=== PATIENT | female | born 1940 | race Caucasian/White ===

== ENCOUNTER 2021-04-24 23:00 | Emergency (ER) | payer BC, MEDICARE ==
[2021-04-24 23:22] VITALS: RESP 16
[2021-04-24] MEDS ORDERED: SODIUM CHLORIDE 0.9% 1,000 ML IV STA (23:27)
--- NOTE | 2021-04-25 00:17 | ED ---
Altered Mental Status HPI - General Chief Complaint: Altered Mental Status Stated Complaint: fall, head injury, dizziness Time Seen by Provider: 04/24/21 23:27 Source: family Mode of arrival: wheelchair Limitations: no limitations - Related Data Home Medications Medication Instructions Recorded Confirmed ALPRAZolam [Xanax] 1 mg PO HS 11/17/13 11/17/13 Gabapentin [Neurontin] 400 mg PO BID 11/17/13 11/17/13 HYDROcodone/APAP 10-325MG [[place] 1 each PO Q6H PRN 11/17/13 11/17/13 10] Levothyroxine Sodium [Synthroid] 125 mcg PO DAILY 11/17/13 11/17/13 Naproxen 500 mg PO Q12HR 11/17/13 11/17/13 Allergies Allergy/AdvReac Type Severity Reaction Status Date / Time No Known Allergies Allergy Verified 04/24/21 23:22 Review of Systems ROS Statement: Those systems with pertinent positive or pertinent negative responses have been documented in the HPI. ROS Other: All systems not noted in ROS Statement are negative. Past Medical History Additional Past Medical History / Comment(s): arthritis History of Any Multi-Drug Resistant Organisms: None Reported Past Surgical History: Back Surgery Past Psychological History: No Psychological Hx Reported Past Alcohol Use History: None Reported Past Drug Use History: None Reported General Exam Limitations: no limitations Course Vital Signs 04/24/21 23:16 Temperature 98.8 F Pulse Rate 75 Respiratory 16 Rate Blood Pressure 127/79 O2 Sat by Pulse 96 Oximetry Medical Decision Making - Lab Data Result diagrams: 04/24/21 23:59 04/24/21 23:59 Lab Results 04/24/21 04/24/21 04/24/21 Range/Units 23:59 23:59 23:59 WBC 9.7 (3.8-10.6) k/uL RBC 4.14 (3.80-5.40) m/uL Hgb 13.8 (11.4-16.0) gm/dL Hct 40.4 (34.0-46.0) % MCV 97.6 (80.0-100.0) fL MCH 33.2 (25.0-35.0) pg MCHC 34.0 (31.0-37.0) g/dL RDW 13.9 (11.5-15.5) % Plt Count 210 (150-450) k/uL MPV 9.1 Neutrophils % 77 % Lymphocytes % 15 % Monocytes % 6 % Eosinophils % 2 % Basophils % 1 % Neutrophils # 7.4 (1.3-7.7) k/uL Lymphocytes # 1.4 (1.0-4.8) k/uL Monocytes # 0.5 (0-1.0) k/uL Eosinophils # 0.2 (0-0.7) k/uL Basophils # 0.1 (0-0.2) k/uL PT 11.2 (9.0-12.0) sec INR 1.0 (<1.2) APTT 24.1 (22.0-30.0) sec Sodium 139 (137-145) mmol/L Potassium 4.2 (3.5-5.1) mmol/L Chloride 109 H (98-107) mmol/L Carbon Dioxide 21 L (22-30) mmol/L Anion Gap 9 mmol/L BUN 24 H (7-17) mg/dL Creatinine 1.31 H (0.52-1.04) mg/dL Est GFR (CKD-EPI)AfAm 45 (>60 ml/min/1.73 sqM) Est GFR (CKD-EPI)NonAf 39 (>60 ml/min/1.73 sqM) Glucose 109 H (74-99) mg/dL Calcium 9.6 (8.4-10.2) mg/dL Total Bilirubin 1.1 (0.2-1.3) mg/dL AST 27 (14-36) U/L ALT 13 (4-34) U/L Alkaline Phosphatase 76 (38-126) U/L Troponin I (0.000-0.034) ng/mL Total Protein 7.9 (6.3-8.2) g/dL Albumin 4.4 (3.5-5.0) g/dL Urine Color Urine Appearance (Clear) Urine pH (5.0-8.0) Ur Specific [place] (1.001-1.035) Urine Protein (Negative) Urine Glucose (UA) (Negative) Urine Ketones (Negative) Urine Blood (Negative) Urine Nitrite (Negative) Urine Bilirubin (Negative) Urine Urobilinogen (<2.0) mg/dL Ur Leukocyte Esterase (Negative) Urine RBC (0-5) /hpf Urine WBC (0-5) /hpf Ur Squamous Epith Cells (0-4) /hpf Urine Bacteria (None) /hpf Hyaline Casts (0-2) /lpf Urine Mucus (None) /hpf Urine Opiates Screen (NotDetected) Ur Oxycodone Screen (NotDetected) Urine Methadone Screen (NotDetected) Ur Propoxyphene Screen (NotDetected) Ur Barbiturates Screen (NotDetected) U Tricyclic Antidepress (NotDetected) Ur Phencyclidine Scrn (NotDetected) Ur Amphetamines Screen (NotDetected) U Methamphetamines Scrn (NotDetected) U Benzodiazepines Scrn (NotDetected) Urine Cocaine Screen (NotDetected) U Marijuana (THC) Screen (NotDetected) Serum Alcohol <10 mg/dL 04/24/21 04/25/21 Range/Units 23:59 02:14 WBC (3.8-10.6) k/uL RBC (3.80-5.40) m/uL Hgb (11.4-16.0) gm/dL Hct (34.0-46.0) % MCV (80.0-100.0) fL MCH (25.0-35.0) pg MCHC (31.0-37.0) g/dL RDW (11.5-15.5) % Plt Count (150-450) k/uL MPV Neutrophils % % Lymphocytes % % Monocytes % % Eosinophils % % Basophils % % Neutrophils # (1.3-7.7) k/uL Lymphocytes # (1.0-4.8) k/uL Monocytes # (0-1.0) k/uL Eosinophils # (0-0.7) k/uL Basophils # (0-0.2) k/uL PT (9.0-12.0) sec INR (<1.2) APTT (22.0-30.0) sec Sodium (137-145) mmol/L Potassium (3.5-5.1) mmol/L Chloride (98-107) mmol/L Carbon Dioxide (22-30) mmol/L Anion Gap mmol/L BUN (7-17) mg/dL Creatinine (0.52-1.04) mg/dL Est GFR (CKD-EPI)AfAm (>60 ml/min/1.73 sqM) Est GFR (CKD-EPI)NonAf (>60 ml/min/1.73 sqM) Glucose (74-99) mg/dL Calcium (8.4-10.2) mg/dL Total Bilirubin (0.2-1.3) mg/dL AST (14-36) U/L ALT (4-34) U/L Alkaline Phosphatase (38-126) U/L Troponin I <0.012 (0.000-0.034) ng/mL Total Protein (6.3-8.2) g/dL Albumin (3.5-5.0) g/dL Urine Color Yellow Urine Appearance Clear (Clear) Urine pH 5.5 (5.0-8.0) Ur Specific [place] 1.023 (1.001-1.035) Urine Protein Trace H (Negative) Urine Glucose (UA) Negative (Negative) Urine Ketones 1+ H (Negative) Urine Blood Negative (Negative) Urine Nitrite Negative (Negative) Urine Bilirubin Negative (Negative) Urine Urobilinogen <2.0 (<2.0) mg/dL Ur Leukocyte Esterase Large H (Negative) Urine RBC 2 (0-5) /hpf Urine WBC 90 H (0-5) /hpf Ur Squamous Epith Cells 1 (0-4) /hpf Urine Bacteria Rare H (None) /hpf Hyaline Casts 3 H (0-2) /lpf Urine Mucus Rare H (None) /hpf Urine Opiates Screen Not Detected (NotDetected) Ur Oxycodone Screen Not Detected (NotDetected) Urine Methadone Screen Not Detected (NotDetected) Ur Propoxyphene Screen Not Detected (NotDetected) Ur Barbiturates Screen Not Detected (NotDetected) U Tricyclic Antidepress Not Detected (NotDetected) Ur Phencyclidine Scrn Not Detected (NotDetected) Ur Amphetamines Screen Not Detected (NotDetected) U Methamphetamines Scrn Not Detected (NotDetected) U Benzodiazepines Scrn Not Detected (NotDetected) Urine Cocaine Screen Not Detected (NotDetected) U Marijuana (THC) Screen Not Detected (NotDetected) Serum Alcohol mg/dL - EKG Data -: EKG Interpreted by Me (EKG is sinus rhythm 88 ID 148 QRS 82 QTC 332) Disposition Clinical Impression: Altered mental status, UTI (urinary tract infection) Disposition: HOME SELF-CARE Condition: Good Instructions (If sedation given, give patient instructions): Altered Mental Status (ED), Urinary Tract Infection in Women (ED) Is patient prescribed a controlled substance at d/c from ED?: No Referrals: Leonora Byrne MD [Primary Care Provider] - 1-2 days
[2021-04-25 00:20] LABS: Basophils # (A) 0.1 k/uL (0-0.2); Basophils % (A) 1 %; Eosinophils # (A) 0.2 k/uL (0-0.7); Eosinophils % (A) 2 %; HCT 40.4 % (34.0-46.0); HGB 13.8 gm/dL (11.4-16.0); Lymphocytes # (A) 1.4 k/uL (1.0-4.8); Lymphocytes % (A) 15 %; MCH 33.2 pg (25.0-35.0); MCV 97.6 fL (80.0-100.0); Mean Platelet Volume 9.1; Monocytes # (A) 0.5 k/uL (0-1.0); Monocytes % (A) 6 %; Neutrophils # (A) 7.4 k/uL (1.3-7.7); Neutrophils % (A) 77 %; Platelet Count 210 k/uL (150-450); RBC 4.14 m/uL (3.80-5.40); RDW 13.9 % (11.5-15.5); WBC 9.7 k/uL (3.8-10.6)
[2021-04-25 00:31] LABS: Partial Thromboplastin Time 24.1 sec (22.0-30.0); Prothrombin Time 11.2 sec (9.0-12.0)
[2021-04-25 00:42] LABS: ALT 13 U/L (4-34); AST 27 U/L (14-36); African American GFR (CKD) 45 (>60 ml/min/1.73 sqM); Albumin 4.4 g/dL (3.5-5.0); Alcohol <10 mg/dL; Alkaline Phosphatase 76 U/L (38-126); Anion Gap 9 mmol/L; Blood Urea Nitrogen 24 mg/dL (7-17); Calcium 9.6 mg/dL (8.4-10.2); Carbon Dioxide 21 mmol/L (22-30); Chloride 109 mmol/L (98-107); Glucose 109 mg/dL (74-99); Non-African American GFR(CKD) 39 (>60 ml/min/1.73 sqM); Potassium 4.2 mmol/L (3.5-5.1); Sodium 139 mmol/L (137-145); Total Bilirubin 1.1 mg/dL (0.2-1.3); Total Protein 7.9 g/dL (6.3-8.2)
--- NOTE | 2021-04-25 00:47 | CT ---
EXAMINATION TYPE: CT brain desirae wo con DATE OF EXAM: 04/24/2021 COMPARISON: CT brain 11/17/2013 HISTORY: fall CT DLP: 1076.4 mGycm Automated exposure control for dose reduction was used. There is cerebral cortical atrophy. There is no mass effect nor midline shift. There is some hypodens ity in the periventricular white matter. There is enlargement of the ventricles. Calvarium is intact. Skull base is intact. There is normal aeration of the mastoid sinuses. Cervical vertebra have normal alignment. There is mild narrowing of C5-6 and C6-7 disc spaces with sp urring. Facet joints are intact. No compression fracture. IMPRESSION: Spondylotic changes in the lower cervical spine. No fracture. Cerebral atrophy and hydrocephalus. Chronic small vessel ischemia. No acute intracranial abnormality. There is progression of the abnormalities in the brain compared to the old exam.
--- NOTE | 2021-04-25 01:16 | CT ---
EXAMINATION TYPE: CT facial bones wo con DATE OF EXAM: 04/24/2021 COMPARISON: None HISTORY: fall CT DLP: 1076.4 mGycm Automated exposure control for dose reduction was used. Images obtained from the bottom of the mandible to the top of the frontal sinuses without contrast. The mandibular ring is intact. Temporomandibular joints are intact. Zygomatic arches appear normal. M axilla is intact. Nasal bone appears deviated to the left side which is probably not acute. No acute fracture seen of the nasal bone. Orbital margins are intact. There is no retro-orbital mass. There is no evidence of orbital blowout fracture. There is fairly normal aeration of the paranasal sinuses. There is fairly normal aeration of the mast oid sinuses. IMPRESSION: Negative CT scan of the facial bones. No fracture seen. Mild nasal deformity consistent with an old i njury.
[2021-04-25 02:21] LABS: Appearance,Urine Clear (Clear); Bacteria,Urine Rare /hpf; Bilirubin,Urine Negative (Negative); Blood,Urine Negative (Negative); Color,Urine Yellow; Glucose,Urine (UA) Negative (Negative); Hyaline Casts,Urine 3 /lpf (0-2); Ketones,Urine 1+ (Negative); Leukocyte Esterase,Urine Large (Negative); Mucus,Urine Rare /hpf; Nitrite,Urine Negative (Negative); PH, Urine 5.5 (5.0-8.0); Protein,Urine Trace (Negative); RBC,Urine 2 /hpf (0-5); Specific Gravity,Urine 1.023 (1.001-1.035); Squamous Epithelial Cell,Urine 1 /hpf (0-4); Urobilinogen,Urine <2.0 mg/dL (<2.0); WBC,Urine 90 /hpf (0-5)
[2021-04-25 02:28] LABS: Amphetamine Screen,Urine Not Detected (NotDetected); Barbiturate Screen,Urine Not Detected (NotDetected); Benzodiazepines Screen,Urine Not Detected (NotDetected); Cocaine Screen,Urine Not Detected (NotDetected); Methadone Screen, Urine Not Detected (NotDetected); Opiate Screen,Urine Not Detected (NotDetected); Oxycodone Screen, Urine Not Detected (NotDetected); Phencyclidine Screen,Urine Not Detected (NotDetected); Tricyclic Antidepressant,Urine Not Detected (NotDetected); Urn Cannabinoid Scrn Not Detected (NotDetected)
[2021-04-25] MEDS ORDERED: CEPHALEXIN 500 MG CAP PO STA (03:18)
[2021-04-25] MEDS ORDERED: cefTRIAXone IN SWFI 1,000 MG/10 ML SYRINGE IVP STA (03:18)
[2021-04-25] MEDS ORDERED: CEPHALEXIN 500MG STARTER PACK 4 CAP BTL PO STA (03:18)
[2021-04-25 04:27] VITALS: BP 131/78; PULSE 78; TEMP 97.8
== END 2021-04-25 04:24 | disposition home or self-care (01) ==
LOC: EC 23:00
DX: R41.82 Altered mental status, unspecified (principal); N39.0 Urinary tract infection, site not specified
CPT/HCPCS: 99285; 96374; 96361 ×3; 36415; 93005; 80053; 84484; 85025; 85610; 85730; 81001; 80306; 87086; 72125; 70486; 70450; G0480; J0696; 80320

== ENCOUNTER 2021-07-24 17:25 | Inpatient (IN) | payer MEDICARE ==
[2021-07-24] MEDS ORDERED: LABETALOL 5 MG/ML VIAL MDV IVP STA (17:48)
[2021-07-24] MEDS ORDERED: HYDROmorphone 0.5 MG/0.5 ML SYRINGE IVP STA (18:01)
--- NOTE | 2021-07-24 19:20 | XR ---
EXAMINATION TYPE: XR chest 1V DATE OF EXAM: 07/24/2021 6:42 PM COMPARISON: None TECHNIQUE: XR chest 1V Frontal view of the chest. CLINICAL INDICATION:Female, 80 years old with history of PAIN; FINDINGS: Lungs/Pleura: There is no evidence of pleural effusion, focal consolidation, or pneumothorax. Pulmonary vascularity: Unremarkable. Heart/mediastinum: Cardiomediastinal silhouette is unremarkable. Musculoskeletal: No acute osseous pathology. IMPRESSION: No acute cardiopulmonary disease/process.
--- NOTE | 2021-07-24 19:23 | XR ---
EXAMINATION TYPE: XR Hip RT and AP Pelvis DATE OF EXAM: 07/24/2021 6:41 PM INDICATION: Patient age:Female; 80 years old; Reason for study: Fall; COMPARISON: None. TECHNIQUE: The right hip was examined in the frontal and lateral projections and a AP pelvis. FINDINGS: Comminuted intertrochanteric fracture of the right proximal femur. There is osteophyte form ation involving the acetabulum' s. No evidence of intra-articular extension. Moderate multilevel dege neration changes of vertebroplasty changes are present. IMPRESSION: Right proximal femur intertrochanteric comminuted fracture.
--- NOTE | 2021-07-24 19:26 | ED ---
General Adult HPI - General Chief complaint: Fall Stated complaint: Hip Pain Time Seen by Provider: 07/24/21 18:00 Source: patient, EMS, RN notes reviewed, old records reviewed Mode of arrival: EMS Limitations: no limitations - History of Present Illness Initial comments: This a 80-year-old female who presents emergency Department after she had a fall. Patient complains of right hip pain. Patient states she's unable to stand on that leg. Patient states movement of the leg in any direction seems to cause increased pain. Patient denies hitting her head and neck. Patient denies chest pain or back pain. Patient has any abdominal pain. Patient denies any other problems at this time. - Related Data Home Medications Medication Instructions Recorded Confirmed ALPRAZolam [Xanax] 1 mg PO HS 11/17/13 11/17/13 Gabapentin [Neurontin] 400 mg PO BID 11/17/13 11/17/13 HYDROcodone/APAP 10-325MG [[place] 1 each PO Q6H PRN 11/17/13 11/17/13 10] Levothyroxine Sodium [Synthroid] 125 mcg PO DAILY 11/17/13 11/17/13 Naproxen 500 mg PO Q12HR 11/17/13 11/17/13 Previous Rx's Medication Instructions Recorded Cephalexin [Keflex] 500 mg PO Q6HR #28 cap 04/25/21 Allergies Allergy/AdvReac Type Severity Reaction Status Date / Time No Known Allergies Allergy Verified 07/24/21 17:58 Review of Systems ROS Statement: Those systems with pertinent positive or pertinent negative responses have been documented in the HPI. ROS Other: All systems not noted in ROS Statement are negative. Past Medical History Additional Past Medical History / Comment(s): arthritis History of Any Multi-Drug Resistant Organisms: None Reported Past Surgical History: Back Surgery Past Psychological History: No Psychological Hx Reported Smoking Status: Never smoker Past Alcohol Use History: Occasional Past Drug Use History: None Reported General Exam - General Exam Comments Initial Comments: GENERAL: Patient is well-developed and well-nourished. Patient is nontoxic and well- hydrated and is in mild distress. ENT: Neck is soft and supple. No significant lymphadenopathy is noted. Oropharynx is clear. Moist mucous membranes. Neck has full range of motion without eliciting any pain. EYES: The sclera were anicteric and conjunctiva were pink and moist. Extraocular movements were intact and pupils were equal round and reactive to light. Eyelids were unremarkable. PULMONARY: Unlabored respirations. Good breath sounds bilaterally. No audible rales rhonchi or wheezing was noted. CARDIOVASCULAR: There is a regular rate and rhythm without any murmurs gallops or rubs. ABDOMEN: Soft and nontender with normal bowel sounds. SKIN: Skin is clear with no lesions or rashes and otherwise unremarkable. NEUROLOGIC: Patient is alert and oriented x3. Cranial nerves II through XII are grossly intact. Motor and sensory are also intact. Normal speech, volume and content. Symmetrical smile. MUSCULOSKELETAL: Patient right hip as tender to palpation and any movement. LYMPHATICS: No significant lymphadenopathy is noted PSYCHIATRIC: Normal psychiatric evaluation. Limitations: no limitations Course Vital Signs 07/24/21 17:50 Temperature 98 F Pulse Rate 64 Respiratory 18 Rate Blood Pressure 117/65 O2 Sat by Pulse 97 Oximetry Medical Decision Making - Medical Decision Making EKG shows sinus bradycardia 56 bpm MS interval is on a 37 QRSs 89 QT interval 44 QTC is 397. Patient's EKG shows no ST segment elevation or depression X-ray shows a right intertrochanteric hip fracture. I spoke with [facility] and he agreed to admit the patient with the patient wrote admitting orders Disposition Clinical Impression: Intertrochanteric fracture of right hip Disposition: ADMITTED IP TO THIS HOSP Referrals: Kyree Barreto MD [STAFF PHYSICIAN] - 1-2 days Time of Disposition: 19:39
[2021-07-24] MEDS ORDERED: SODIUM CHLORIDE 0.9% 1,000 ML IV ONE (19:39)
--- NOTE | 2021-07-24 21:11 | P.HPOR ---
History of Present Illness H&P Date: 07/24/21 Chief Complaint: FAll, Right hip fracture 80 yo female presented after ffs at home with right hip pain. She states she tripped over her new shoes and fell directly onto her right hip with immediate pain and inability to ambulate after. EMS brought her in. Denies BHT. No LOC. States no other injury. Has some knee pain on the same side that is chronic. Denies numbness/tingling. States no other issues at this time. She has a hx of hypothyroid. Review of Systems 14 points review of systems completed and as stated in HPI, all other systems reviewed are negative. Constitutional: Reports as per HPI Past Medical History Additional Past Medical History / Comment(s): arthritis History of Any Multi-Drug Resistant Organisms: None Reported Past Surgical History: Back Surgery Past Psychological History: No Psychological Hx Reported Smoking Status: Never smoker Past Alcohol Use History: Occasional Past Drug Use History: None Reported Medications and Allergies Home Medications Medication Instructions Recorded Confirmed Type Naproxen 500 mg PO BID PRN 11/17/13 07/24/21 History Baclofen 10 mg PO BID PRN 07/24/21 07/24/21 History Gabapentin [Neurontin] See Taper PO DIRECTED 07/24/21 07/24/21 History HYDROcodone/APAP 5-325MG [[place] 1 tab PO HS 07/24/21 07/24/21 History 5-325] Ibuprofen [Motrin] 600 mg PO BID PRN 07/24/21 07/24/21 History Levothyroxine Sodium [Synthroid] 150 mcg PO DAILY 07/24/21 07/24/21 History Metoprolol Tartrate [Lopressor] 50 mg PO DAILY 07/24/21 07/24/21 History Allergies Allergy/AdvReac Type Severity Reaction Status Date / Time No Known Allergies Allergy Verified 07/24/21 20:13 Physical Examination Osteopathic Statement: *. No significant issues noted on an osteopathic structural exam other than those noted in the History and Physical/Consult. AOX3 NAD VSS, afeb Non septic appearing TTP of the right hip region over GT and groin. No other TTP of any major joints FROM of all major joints w/o pain except pain with log roll of right hip 5/5 motor all except HF and KE Right due to fracture. All others full. SILT L2-S1 and C5-T1 2/4 DP/PT Rad/U pulses Compartments soft and compressive No skin lesions or breaks CNII-XII grossly intact No pathological reflexes DTR 2/4 Results Imaging of right hip shows minimally displaced 3 part right IT fracture with flexed and valgus angulation. No other fractures noted. FA joints congruent. No pelvic fractures noted. Full length femur films pending Knee films pending. Assessment and Plan Assessment: 80 yo female s/p ffs with right IT fracture 3 part displaced, angulated Hx hypothyroid Plan: Orthopedic Surgery Risk Review Monica Sierra is a 80 yo female presenting for evaluation of sudden onset Right hip pain, inability to ambulate after fall from standing. It was my pleasure to have seen and examined Monica Sierra. In our visit today we have had a chance to go over subjective complaints, physical examination findings and treatments including the natural course history without intervention and various interventional options. Her imaging demonstrates Right hip IT fracture 3 part angulated, displaced. On physical exam, Monica Sierra demonstrates pain with motion of RLE, which is NV intact at this time. I have explained to the patient that this fracture needs stabilization. Based on the patients imaging, physical exam, and the rapid progression and disabling nature of her symptoms, at this time I recommend surgery in the form or a: Right hip intramedullary nail fixation I discussed the risk and benefits of this procedure at length with Monica Sierra and her family at bedside. Questions were invited and answered, and the patient wishes to proceed as outlined below. Currently, I am recommendin. RIGHT hip intramedullary nail fixation 2. Review of surgical risks and benefits as well as an educational packet on the proposed surgical procedure. Risks: All surgical procedures come with inherent risks, including those related to positioning, anesthesia, intraoperative findings, and postoperative complications. It is important to understand that surgery does not come with any guarantee of a successful outcome as complications and adverse events are always possible. The patient was given a handout discussing the surgical procedure and risks associated with the intervention, both of which were discussed with the patient. These risks include but are not limited to the following: - Experiencing same, different or even worse symptoms compared to before surgery. - Requiring further surgery or other forms of treatment presently or at some time in the future . - On an extreme but fortunately relatively rare basis severe complication such as blindness, stroke, heart attack, temporary and/or permanent nerve injury, paralysis, coma, or may occur, sometimes without known explanation. - Surgical complications may include but are not limited to risk of infection, fluid accumulation in the surgical dissection site, including a seroma or hematoma, that requires additional surgery, wound drainage, bleeding, new numbness or weakness, vision changes/loss, spinal fluid leakage, non-healing and/or infected incision, headaches, difficulty or inability to swallow, hoarseness, hemopneumothorax, pneumothorax, injury to nerves, spinal cord, blood vessels, lymphatics or other vital organs (i.e., bowel injury, injury to the great vessels); heterotopic bone formation; complications related to the hardware such as screws, rods, including misplaced hardware, device failure, hardware fracture/breakage, or hardware loosening; retained surgical instrumentations or devices and the need for further surgery. - Medical risks of the planned surgery include but are not limited to generalized Infections to the whole body or local areas outside of the surgical site (sepsis), heart attack, bleeding, anaphylaxis, meningitis, seizure, epilepsy, hearing loss, burn lombardo, laceration of the head or other areas of the body, bruising, hypersensitivity of the skin, bladder over distension; allergic reaction; shoulder injury related to positioning; fat, blood and air clots to other areas of the body like heart, lungs, brain; failure of internal organs such as lungs, kidneys, liver and excessive bleeding. If blood transfusions are necessary, note that transfusions may cause intolerance reactions such as anaphy laxis or other complex reactions. Despite best efforts, the results of surgery might not heal in terms of bone, soft tissues such as skin, fascia, ligaments, and joints. [facility] has multiple operating rooms with single and overlapping rooms running daily. They currently function under the required guidelines as produced by the Senate Finance Committee with regards to the overlapping rooms and will continue to comply with changes to this policy as they occur. The requirements include and are complied with as follows: (1) the critical portions of the overlapping rooms will not occur at the same time, (2) the attending physician will be physically present during the critical portions of the procedure and immediately available during the entire case, and (3) a back-up attending is designated should the primary attending not be immediately available. The patient has had a chance to review all the listed information, has been given print outs detailing this information, and has had all his/her questions answered to their satisfaction. It was my pleasure to have seen and examined Monica Sierra. In our visit today we have had a chance to go over my understanding of our patient's current condition, the natural course history without intervention and various interventional options. Questions were invited and answered, and the patient wishes to proceed as outlined above. I have seen and examined the patient for 25 minutes and we have spent more than 50% of the time in repeat and detailed counseling about the patient's condition, its natural course history with out and as much as can be predicted with surgery and re-review of various surgical treatment options. In conclusion, Monica Sierra and her family at bedside requested we proceed with the above suggested surgery and are willing to accept risks and limitations of the suggested surgery as nature of the disease process and our best attempts at treatment for the condition. Thank you again for allowing us to be part of your patient's care. Please don't hesitate to contact me if you have any further questions. Signed and authenticated by: L[facility] [place] [address] [address]
[2021-07-24] MEDS ORDERED: CYCLOBENZAPRINE 5 MG TAB PO PRN (21:12)
[2021-07-24] MEDS ORDERED: HYDROcodone/APAP 5-325MG 1 EACH TAB PO PRN (21:12)
[2021-07-24 22:02] LABS: Basophils # (A) 0.1 k/uL (0-0.2); Basophils % (A) 0 %; Eosinophils # (A) 0.1 k/uL (0-0.7); Eosinophils % (A) 1 %; HCT 37.6 % (34.0-46.0); HGB 11.8 gm/dL (11.4-16.0); Lymphocytes # (A) 1.2 k/uL (1.0-4.8); Lymphocytes % (A) 9 %; MCH 30.8 pg (25.0-35.0); MCHC 31.5 g/dL (31.0-37.0); MCV 97.7 fL (80.0-100.0); Mean Platelet Volume 8.9; Monocytes # (A) 0.5 k/uL (0-1.0); Monocytes % (A) 4 %; Neutrophils # (A) 11.8 k/uL (1.3-7.7); Neutrophils % (A) 86 %; Platelet Count 238 k/uL (150-450); RBC 3.85 m/uL (3.80-5.40); RDW 13.3 % (11.5-15.5); WBC 13.8 k/uL (3.8-10.6)
[2021-07-24 22:13] LABS: Calcium 9.2 mg/dL (8.4-10.2); Potassium 4.3 mmol/L (3.5-5.1); Total Bilirubin 0.5 mg/dL (0.2-1.3); Total Protein 7.1 g/dL (6.3-8.2)
[2021-07-24] MEDS: HYDROmorphone 0.5 MG/0.5 ML SYRINGE IVP PRN (22:31)
[2021-07-25 05:34] LABS: Partial Thromboplastin Time 23.8 sec (22.0-30.0); Prothrombin Time 10.8 sec (9.0-12.0)
[2021-07-25] MEDS: LEVOTHYROXINE 75 MCG TAB PO SCH (09:51)
[2021-07-25] MEDS: HYDROmorphone 0.5 MG/0.5 ML SYRINGE IVP PRN ×3 (09:51→23:56)
--- NOTE | 2021-07-25 10:33 | P.CONS ---
History of Present Illness - Reason for Consult Preoperative clearance - History of Present Illness Pleasant 80-year-old female came in after a mechanical fall and found to have a right hip fracture and patient is undergoing intramedullary nailing. Patient in any history of condition or failure patient appears to have chronic kidney disease stage III with baseline creatinine of around 1.3 present creatinine is 1.44 patient does take metoprolol at home patient is hypotensive at this time patient will be hydrated patient was started on IV fluids. Patient will need a bolus of IV fluids before surgery EKG showed a sinus bradycardia because of the metoprolol bradycardia improved at this time and patient doesn't have any acute ST-T wave changes patient denied any chest pain at this time. REVIEW OF SYSTEMS: CONSTITUTIONAL: No fever, no malaise, no fatigue. HEENT: No recent visual problems or hearing problems. Denied any sore throat. CARDIOVASCULAR: No chest pain, orthopnea, PND, no palpitations, no syncope. PULMONARY: No shortness of breath, no cough, no hemoptysis. GASTROINTESTINAL: No diarrhea, no nausea, no vomiting, no abdominal pain. NEUROLOGICAL: No headaches, no weakness, no numbness. HEMATOLOGICAL: Denies any bleeding or petechiae. GENITOURINARY: Denies any burning micturition, frequency, or urgency. MUSCULOSKELETAL/RHEUMATOLOGICAL: Pain in the right hip ENDOCRINE: Denies any polyuria or polydipsia. The rest of the 14-point review of systems is negative. PHYSICAL EXAMINATION: GENERAL: The patient is alert and oriented x3, not in any acute distress. Well developed, well nourished. HEENT: Pupils are round and equally reacting to light. EOMI. No scleral icterus. No conjunctival pallor. Normocephalic, atraumatic. No pharyngeal erythema. No thyromegaly. CARDIOVASCULAR: S1 and S2 present. No murmurs, rubs, or gallops. PULMONARY: Chest is clear to auscultation, no wheezing or crackles. ABDOMEN: Soft, nontender, nondistended, normoactive bowel sounds. No palpable organomegaly. MUSCULOSKELETAL: Deferred to orthopedic surgery EXTREMITIES: No cyanosis, clubbing, or pedal edema. NEUROLOGICAL: Gross neurological examination did not reveal any focal deficits. SKIN: No rashes. Assessment and plan -Preoperative to clearance for right hip intramedullary nailing: Patient is low risk and go for surgery no further testing is necessary at this time -Hypertension patient is hypotensive patient will be started on normal saline at this time. Hold off on metoprolol -Peripheral neuropathy for which patient is an of which can be continued -Hypothyroidism resume levothyroxine - DVT prophylaxis: As per primary service Past Medical History Additional Past Medical History / Comment(s): arthritis History of Any Multi-Drug Resistant Organisms: None Reported Past Surgical History: Back Surgery Past Psychological History: No Psychological Hx Reported Smoking Status: Never smoker Past Alcohol Use History: Occasional Past Drug Use History: None Reported Medications and Allergies Home Medications Medication Instructions Recorded Confirmed Type Naproxen 500 mg PO BID PRN 11/17/13 07/24/21 History Baclofen 10 mg PO BID PRN 07/24/21 07/24/21 History Gabapentin [Neurontin] See Taper PO DIRECTED 07/24/21 07/24/21 History HYDROcodone/APAP 5-325MG [[place] 1 tab PO HS 07/24/21 07/24/21 History 5-325] Ibuprofen [Motrin] 600 mg PO BID PRN 07/24/21 07/24/21 History Levothyroxine Sodium [Synthroid] 150 mcg PO DAILY 07/24/21 07/24/21 History Metoprolol Tartrate [Lopressor] 50 mg PO DAILY 07/24/21 07/24/21 History Allergies Allergy/AdvReac Type Severity Reaction Status Date / Time No Known Allergies Allergy Verified 07/24/21 20:13 Physical Exam Vitals: Vital Signs Temp Pulse Pulse Resp BP BP Pulse Ox 07/25/21 07:25 97.5 F L 69 17 101/61 95 07/25/21 02:00 98.3 F 63 20 106/61 97 07/25/21 00:58 98.7 F 66 14 110/56 92 L 07/24/21 22:32 69 18 113/62 95 07/24/21 17:50 98 F 64 18 117/65 97 Intake and Output 07/24/21 07/25/21 07/25/21 22:59 06:59 14:59 Output Total 0 Balance 0 Output: Urine 0 Other: Voiding Method External Catheter Weight 74.843 kg 74.843 kg Results CBC & Chem 7: 07/24/21 21:50 07/24/21 21:57 Labs: Abnormal Lab Results - Last 24 Hours (Table) 07/24/21 07/24/21 Range/Units 21:50 21:57 WBC 13.8 H (3.8-10.6) k/uL Neutrophils # 11.8 H (1.3-7.7) k/uL Sodium 136 L (137-145) mmol/L BUN 29 H (7-17) mg/dL Creatinine 1.44 H (0.52-1.04) mg/dL Glucose 112 H (74-99) mg/dL
[2021-07-25] MEDS ORDERED: [UNRECOGNIZED DRUG - OTHER] IVPB ONE (12:00)
[2021-07-25] MEDS ORDERED: TRANEXAMIC ACID IVPB ONE (12:00)
[2021-07-25] MEDS ORDERED: SALINE IVPB ONE (12:00)
[2021-07-25] MEDS ORDERED: TRANEXAMIC ACID IN NACL,ISO-OS 1,000 MG in SALINE 1 100ML.BAG IVPB ONE (12:00)
[2021-07-25] MEDS: SODIUM CHLORIDE 0.9% 1,000 ML IV SCH ×2 (12:04→22:52)
[2021-07-25] MEDS ORDERED: SODIUM CHLORIDE 0.9% 100 ML with ceFAZolin 2 GM IV ONE ×2 (17:27)
[2021-07-25] MEDS ORDERED: LACTATED RINGERS 1,000 ML IV ONE ×2 (17:27→20:36)
[2021-07-25] MEDS ORDERED: KETAMINE 10 MG/ML 20 ML VIAL ONE (19:23)
[2021-07-25] MEDS ORDERED: MIDAZOLAM 2 MG/2 ML VIAL ONE (19:23)
[2021-07-25] MEDS ORDERED: PHENYLEPHRINE-0.9% NACL SYG 1,000 MCG/10 ML SYRINGE ONE (19:23)
[2021-07-25] MEDS ORDERED: TRANEXAMIC ACID IN NACL,ISO-OS 1,000 MG/100 ML BAG ONE (19:23)
--- NOTE | 2021-07-25 20:49 | P.PN ---
Progress Note - Text Progress Note Date: 07/25/21 Pt s/e in pre op area. She is ready and willing to proceed with procedure as outlined. Risks and benefits discussed again consent confirmed. Site marked. Anesthesia cleared.
[2021-07-25] MEDS ORDERED: ACETAMINOPHEN TAB 325 MG TAB PO PRN (20:56)
[2021-07-25] MEDS ORDERED: NALOXONE 0.4 MG/ML 1 ML VIAL IV PRN (20:56)
--- NOTE | 2021-07-25 21:00 | P.OP ---
Date of Procedure: 07/25/21 Preoperative Diagnosis: 1. Right hip IT fracture, 3 part displaced, closed 2. s/p ffs Postoperative Diagnosis: 1. Right hip IT fracture, 3 part displaced, closed 2. s/p ffs Procedure(s) Performed: 1. RIGHT hip intramedullary nail fixation 2. Interpretation of intraoperative flouroscopy <1 hr Implants: S&N Intertan 11.5mm x 130 deg x 180 mm nail 105 mm lag screw 100 mm compression screw 37.5 mm distal locking scew Anesthesia: MAC, spinal Surgeon: López P[employer] Publisher #1: Tj Craig (Was present and assisted in all aspects of the case) Estimated Blood Loss (ml): 200 IV fluids (ml): 1,250 Urine output (ml): 200 Pathology: none sent Condition: stable Disposition: PACU Indications for Procedure: 80 yo female presented after a ffs at home where she tripped over her shoes. She was seen in ED and found to have a right 3 part IT fracture. She was admitted and worked up in preparation of surgical intervention. We discussed risks and benefits again as outlined in the risk review. She was cleared by medicine for surgery and anesthesia. She was willing to assume risks of surgery and wiling to proceed as was her family. Description of Procedure: The patient was seen and examined in the preoperative area. All preoperative protocols were followed. Informed consent was obtained risks and benefits of the procedure were discussed at length. Risks including bleeding infection damage to the surrounding tissue and risk of reoperation were discussed with the patient. Risk of anesthesia up to and including was a discussed with the patient. These are outlined in the risk reviewed. They were willing to accept these risks and all of the risks of surgery. The patient was given a weight- based dose of antibiotics in the form of 2 g Ancef. The patient was seen and evaluated by the anesthesia team who deemed them fit for surgery. The site was marked, the patient was willing to proceed with the procedure. The patient was transferred to the operative suite by the Department of anesthesia. There were then drifted off to sleep by the department of anesthesia and spinal with sedation anesthesia was used. Once adequate anesthesia had been obtained the patient was carefully transferred to the operative bed. All bony prominences were padded accordingly. SCDs were placed on the nonoperative lower extremities. Arms were well padded. Patient was transferred to a Ida bed the post was placed in a boot was placed on her right lower extremity. Well leg was placed in a well leg dyer and well-padded and secured. She was then secured to the table with safety strap and tape. X-rays were taken of the hip as well as of the knee briefing was performed and performed a closed reduction maneuver with the table placing her in traction abduction internal rotation. AP and lateral confirmed good position and so we continued. Preoperative briefing was done with the operative team and everyone was ready for the procedure to start. The patients right lower extremity was then prepped and draped in the normal sterile fashion. Timeout was then performed and all parties in agreement with the procedure to be performed. Skin incision was made to simmers proximally to the greater trochanter in line with the femur through the fascia and blunt dissection taken down to the tip the greater trochanter the all was then used to localize a starting point just medial to the tibial greater trochanter and in line with femur as well as center center on the lateral. Fluoroscopic imaging confirmed this once is in good position always tapped into position and confirmed to be in good position on AP and lateral imaging. Ball-tipped guidewire was then passed through the awl into the bone and confirmed to be within bone on AP and lateral. We then removed all and passed an opening reamer under fluoroscopic guidance. We then passed sequential reamers of 9 mm 11 mm and 13 mm through the proximal portion of the f emur to allow for better fit of the nail. Once this was accomplished then selected the nail and placed over the ball-tipped guidewire and impacted into position as a donor AP lateral fluoroscopic imaging. Once is in good position we placed the jig for the lag screw incision was made over the lateral aspect of the leg through the tensor fascia and blunt dissection taken of the femur the jig was then secured to the lateral aspect femur and pinned was placed ensuring center center within the neck and the head and 10 mm of subchondral bone on AP and lateral fluoroscopic imaging. Once it was in good position we measured for a lag screw. We then proceeded to drill for a compression screw was done under AP fluoroscopic guidance. Once this was completed then placed a spatula and then drilled over the wire for the compression screw to the desired length. Leg screw was then placed over the wire under fluoroscopic guidance. Once in good position the compression screw was then placed and compression was performed under fluoroscopic guidance and we had good compression and good reduction. We then turned our attention distally to the distal locking screw static hole selected jig was placed through this skin incision made and blunt dissection taken out of the bone the guide was then placed and we drilled through this. The screw was measured and then placed through this distal locking hole and confirmed to be in good position on AP and lateral fluoroscopic imaging. Once this was confirmed we then removed the outrigger from the nail and took final imaging which confirmed good reduction of the fracture good placement of hardware. Then copiously irrigated the wounds normal sterile saline. 0 Vicryl was placed in the deep fascia and the tensor fascia 2-0 Vicryl placed in subcu e very tissue and jason placed in the skin the wound edges approximated very well. The wounds were then cleaned and dressed sterilely with Adaptic 4 x 4's ABDs and foam tape. The patient was then transferred back to their hospital bed. There were awakened by department of anesthesia having tolerated the procedure very well with no complications. The patient was then transported to the postoperative care unit in stable condition.
[2021-07-25] MEDS ORDERED: HYDROmorphone 0.5 MG/0.5 ML SYRINGE IVP ONE ×4 (21:10→21:20)
[2021-07-25] MEDS: SENNOSIDES-DOCUSATE SODIUM 1 EACH TAB PO SCH (22:52)
[2021-07-26 00:13] LABS: Basophils # (A) 0.1 k/uL (0-0.2); Basophils % (A) 1 %; Eosinophils % (A) 0 %; HGB 10.2 gm/dL (11.4-16.0); Lymphocytes # (A) 0.8 k/uL (1.0-4.8); Lymphocytes % (A) 9 %; MCH 30.5 pg (25.0-35.0); MCHC 30.9 g/dL (31.0-37.0); MCV 98.6 fL (80.0-100.0); Mean Platelet Volume 8.8; Monocytes # (A) 0.5 k/uL (0-1.0); Monocytes % (A) 5 %; Neutrophils # (A) 8.3 k/uL (1.3-7.7); Neutrophils % (A) 85 %; Platelet Count 181 k/uL (150-450); RBC 3.34 m/uL (3.80-5.40); RDW 13.5 % (11.5-15.5); WBC 9.8 k/uL (3.8-10.6)
[2021-07-26] MEDS: LEVOTHYROXINE 75 MCG TAB PO SCH (05:06)
[2021-07-26] MEDS: HYDROmorphone 0.5 MG/0.5 ML SYRINGE IVP PRN (05:07)
--- NOTE | 2021-07-26 09:40 | XR ---
Fluoroscopy HISTORY: Fracture right hip 77 seconds fluoroscopy time supplied to the referring clinician. 11 intraoperative C-arm images docu ment the procedure. See dictated report from orthopedic surgery.
[2021-07-26] MEDS: HYDROcodone/APAP 7.5-325MG 1 EACH TAB PO PRN ×2 (09:44→16:07)
[2021-07-26] MEDS: ENOXAPARIN 30 MG/0.3 ML SYRINGE SQ SCH (09:47)
[2021-07-26] MEDS: SODIUM CHLORIDE 0.9% 1,000 ML IV SCH (09:47)
[2021-07-26] MEDS ORDERED: METOPROLOL TARTRATE 12.5 MG TAB PO STA (10:03)
--- NOTE | 2021-07-26 10:16 | P.PN ---
Subjective Progress Note Date: 07/26/21 Principal diagnosis: Right hip fracture Patient seen and examined she is doing fairly well as morning she states some soreness in her right hip but she feels better and feels more stable. She is up and about. She is eating breakfast. States she feels a little nauseous from an esthesia but otherwise is doing okay. Denies fevers chills shortness of breath or chest pain at this time. Objective - Vital Signs Vital signs: Vital Signs Temp 98.5 F 07/26/21 08:46 Pulse 109 H 07/26/21 09:43 Resp 16 07/26/21 08:46 BP 112/65 07/26/21 09:32 Pulse Ox 91 L 07/26/21 09:43 FiO2 Intake & Output 07/25/21 07/26/21 07/26/21 18:59 06:59 18:59 Intake Total 2000 50 Output Total 650 700 Balance 1350 -650 Intake: IV 2000 50 Sodium Chloride 0.9% 1, 900 000 ml @ 75 mls/hr IV . [id number] ONE Rx#:[id number] Output: Urine 650 500 Straight 650 Estimated Blood Loss 200 Other: Voiding Method External Catheter External Catheter Indwelling Catheter - Exam -Alert and oriented no acute distress -Minimal pain with logroll right hip -5/5 dorsiflexion plantar flexion EHL FHL -Sensation intact L2 to S1 -Palpable dorsalis pedis posterior tibial pulses -Compartments soft and compressible -Dressings clean and dry incisions clean and dry minimal bruising - Labs CBC & Chem 7: 07/25/21 23:34 07/24/21 21:57 Labs: Abnormal Lab Results - Last 24 Hours (Table) 07/25/21 Range/Units 23:34 RBC 3.34 L (3.80-5.40) m/uL Hgb 10.2 L (11.4-16.0) gm/dL Hct 33.0 L (34.0-46.0) % MCHC 30.9 L (31.0-37.0) g/dL Neutrophils # 8.3 H (1.3-7.7) k/uL Lymphocytes # 0.8 L (1.0-4.8) k/uL Assessment and Plan Assessment: Postop day 1 right hip intramedullary nail fixation 80 yo female s/p ffs with right IT fracture 3 part displaced, angulated Hx hypothyroid Plan: -Appreciate lifestyle consultant and team management. -Activity: Ambulate QID, OOB all meals, up and about, limit lifting bending twisting to less than 5 lbs. Use walker or cane if needed for stability. -Daily PT/OT, increase ambulation strength and balance. - -Pain control: Adequate at this time -Meds: reviewed -GI ppx: senna, Miralax -DC abbott when up and about, bedside commode if needed -DVT PPX: Lovenox 40 mg subcu daily -Hygiene: Shower today. Maintain dressing clean and dry. Meticulous cleaning after BMs away from incision site -Encourage IS 10x/hr -Dispo: Pending
[2021-07-26] MEDS ORDERED: LACTULOSE 20 GM/30 ML CUP PO PRN (12:52)
--- NOTE | 2021-07-26 15:09 | P.PN ---
Subjective Progress Note Date: 07/26/21 Pleasant 80-year-old female came in after a mechanical fall and found to have a right hip fracture and patient is undergoing intramedullary nailing. Patient in any history of condition or failure patient appears to have chronic kidney disease stage III with baseline creatinine of around 1.3 present creatinine is 1.44 patient does take metoprolol at home patient is hypotensive at this time patient will be hydrated patient was started on IV fluids. Patient will need a bolus of IV fluids before surgery EKG showed a sinus bradycardia because of the metoprolol bradycardia improved at this time and patient doesn't have any acute ST-T wave changes patient denied any chest pain at this time. 07/16/2021 Patient evaluated today sitting in the chair. She has a Abbott catheter in place she is postoperative day #2 right hip intramedullary nailing for right hip fracture. Patient reports she has had a bowel movement, passing gas. Tolerating diet Patient is now slightly tachycardic with heart rate in the 110s, we did add a small dose of metroprolol on at 12.5 mg po and will monitor as her metoprolol has been on hold postoperatively. Blood pressure is low normal today. No chest pain, no shortness of breath. No dizziness or lightheadedness. Will follow up with labs in the am and plan is for DC to rehab tomorrow and she can medically cleared for discharge. Order in for abbott catheter discontinuation and voiding trial. Review of Systems Constitutional: Denied any fatigue denied any fever. Cardio vascular: denied any chest pain, palpitations Gastrointestinal: denied any nausea, vomiting, diarrhea Pulmonary: Denied any shortness of breath cough Neurologic denied any new focal deficits All inpatient medications were reviewed and appropriate changes in these medications as dictated in the interval history and assessment and plan. PHYSICAL EXAMINATION: GENERAL: The patient is alert and oriented x3, not in any acute distress. Well developed, well nourished. HEENT: Pupils are round and equally reacting to light. EOMI. No scleral icterus. No conjunctival pallor. Normocephalic, atraumatic. No pharyngeal erythema. No thyromegaly. CARDIOVASCULAR: S1 and S2 present. No murmurs, rubs, or gallops. PULMONARY: Chest is clear to auscultation, no wheezing or crackles. ABDOMEN: Soft, nontender, nondistended, normoactive bowel sounds. No palpable organomegaly. MUSCULOSKELETAL: Deferred to orthopedic surgery. Postsurgical dressing intact. EXTREMITIES: No cyanosis, clubbing, or pedal edema. NEUROLOGICAL: Gross neurological examination did not reveal any focal deficits. SKIN: No rashes. Assessment and plan -Postop Day#2 right him intramedullary nailing secondary to right hip fracture from mechanical managed by primary plan is for discharge to [facility] tomorrow and medicine is agreeing. -Hypertension - blood pressure is low normal and heart rate in the 110s will add low dose metoprolol and monitor -Peripheral neuropathy for which patient is on gabapentin which can be continued on DC. -Hypothyroidism resume levothyroxine -Pain management per primary -Chronic kidney disease stage 3 with baseline creatinine around 1.3 will repeat BMP prior to discharge and follow up outpatient DVT prophylaxis: As per primary service GI prophylaxis: pepcid Full Code Plan for discharge to [facility] tomorrow. Plan to add metoprolol back on and monitor blood pressure heart rate today. Discontinue abbott catheter and complete voiding trial. Repeat labs in AM. Patient can be cleared medically for discharge to rehab tomorrow. Thank you kindly for this consultation. The impression and plan of care has been dictated by Kelley Johnson Nurse Practitioner as directed. Dr. Estevan MD I have performed a history and physical examination and medical decision making of this patient, discussed the same with the dictator, and agree with the dictators assessment and plan as written, documented as a scribe. Based on total visit time, I have performed more than 50% of this visit. Objective - Vital Signs Vital signs: Vital Signs Temp 98.5 F 07/26/21 08:46 Pulse 109 H 07/26/21 09:43 Resp 16 07/26/21 08:46 BP 112/65 07/26/21 09:32 Pulse Ox 91 L 07/26/21 09:43 FiO2 Intake & Output 07/25/21 07/26/21 07/26/21 18:59 06:59 18:59 Intake Total 2000 50 Output Total 650 700 Balance 1350 -650 Intake: IV 2000 50 Sodium Chloride 0.9% 1, 900 000 ml @ 75 mls/hr IV . [id number] ONE Rx#:[id number] Output: Urine 650 500 Straight 650 Estimated Blood Loss 200 Other: Voiding Method External Catheter External Catheter Indwelling Catheter # Bowel Movements 1 - Labs CBC & Chem 7: 07/25/21 23:34 07/24/21 21:57 Labs: Abnormal Lab Results - Last 24 Hours (Table) 07/25/21 Range/Units 23:34 RBC 3.34 L (3.80-5.40) m/uL Hgb 10.2 L (11.4-16.0) gm/dL Hct 33.0 L (34.0-46.0) % MCHC 30.9 L (31.0-37.0) g/dL Neutrophils # 8.3 H (1.3-7.7) k/uL Lymphocytes # 0.8 L (1.0-4.8) k/uL Assessment and Plan Time with Patient: Less than 30
[2021-07-26] MEDS: SENNOSIDES-DOCUSATE SODIUM 1 EACH TAB PO SCH (20:42)
[2021-07-27] MEDS: SODIUM CHLORIDE 0.9% 1,000 ML IV SCH ×2 (02:41→13:52)
[2021-07-27] MEDS: LEVOTHYROXINE 75 MCG TAB PO SCH (05:37)
[2021-07-27] MEDS: HYDROcodone/APAP 7.5-325MG 1 EACH TAB PO PRN ×2 (07:15→12:20)
--- NOTE | 2021-07-27 09:13 | P.PN ---
Subjective Progress Note Date: 07/27/21 Principal diagnosis: Right hip IT fracture Patient was seen at bedside this morning resting comfortably lying in semirecumbent position. Patient says she did work with therapy yesterday. She says she was able to get up and sit at bedside with assistance and walk to the chair next to the bed. Patient says she did have increased pain and difficulty bearing weight on the right lower extremity and she got up with physical therapy. Patient says [place] has helped control her pain. Patient says she has not used incentive spirometer yet. Patient denies chest pain, fever, shortness breath, nausea, incontinence vision, loss of bowel/bladder control. Objective - Vital Signs Vital signs: Vital Signs Temp 98.6 F 07/27/21 01:51 Pulse 92 07/27/21 01:51 Resp 20 07/27/21 01:51 BP 104/64 07/27/21 01:51 Pulse Ox 94 L 07/27/21 01:51 FiO2 Intake & Output 07/26/21 07/27/21 07/27/21 18:59 06:59 18:59 Intake Total 900 1450 Output Total 300 Balance 600 1450 Intake: Intake, IV Titration 900 950 Amount Sodium Chloride 0.9% 1, 900 900 000 ml @ 75 mls/hr IV . [id number] [facility] Rx#:[id number] ceFAZolin 2 gm In Sodium 50 Chloride 0.9% 50 ml @ 100 mls/hr IVPB Q8H [facility] Rx#: [id number] Oral 500 Output: Urine 300 Uretheral ([place]) 300 Other: Voiding Method Indwelling Catheter # Bowel Movements 1 - Exam Optifoam dressings present on right lateral hip currently. Minimal drainage at this time. Patient is moderate tenderness to palpation along the right lateral hip near incisions. Sensation is equal, symmetric, bilateral intact throughout the upper and lower extremities. Patient does have limited range of motion in right hip flexion/extension as well as knee flexion/extension due to pain. Patient has full range of motion in bilateral dorsi/plantar flexion of the ankles. Patient is able wiggle digits in feet. Patient has full range of motion bilateral upper extremities as well as left lower extremity. 4+/5 strength in bilateral upper extremities and left lower extremity. 3+/5 and right lower extremity in resisted hip flexion/extension and knee flexion/extension. Neurovascular status is intact bilaterally. Cap refill under 3 seconds in digits of upper extremities. Radial pulse intact, bilaterally, 2+. DP pulses intact bilaterally. Negative Homans bilaterally. - Labs CBC & Chem 7: 07/25/21 23:34 07/24/21 21:57 Labs: Abnormal Lab Results - Last 24 Hours (Table) 07/24/21 Range/Units 21:57 TSH 40.200 H (0.350-5.500) uIU/mL Assessment and Plan Assessment: 1. Right hip IT fracture Postoperative day #2 status post right hip IM nail Plan: 1. Right hip IT fracture - surgery performed , 07/25/2021 - right hip IM nail. Patient stable at bedside this morning. Patient is to continue to work with physical therapy and encourage incentive spirometer use. Weight-bear as tolerated with walker and assistance. Plan for discharge to rehab on 07/29/2021. 2. Appreciate medical management 3. Pain management - [place]; Dilaudid only if necessary 4. DVT prophylaxis - Lovenox 5. GI prophylaxis - lactulose; senna 6. PT/OT - weightbearing as tolerated with walker 7. Encourage incentive spirometer use 8. Discharge planning - plan for discharge to rehab on 07/29/2021 Time with Patient: Less than 30
[2021-07-27] MEDS: METOPROLOL TARTRATE 25 MG TAB PO SCH (09:19)
[2021-07-27] MEDS: ENOXAPARIN 30 MG/0.3 ML SYRINGE SQ SCH (09:19)
[2021-07-27] MEDS: FAMOTIDINE 20 MG TAB PO SCH (09:19)
[2021-07-27 11:49] LABS: African American GFR (CKD) 52.4 (60.0-200.0); Anion Gap 11.4 mmol/L (10.00-18.00); BUN/Creat Ratio 16.35 Ratio (12.00-20.00); Blood Urea Nitrogen 18.8 mg/dL (9.0-27.0); Calcium 8.6 mg/dL (8.7-10.3); Carbon Dioxide 23.7 mmol/L (20.0-27.5); Non-African American GFR(CKD) 45.2 (60.0-200.0); Potassium 3.7 mmol/L (3.5-5.5)
--- NOTE | 2021-07-27 13:26 | P.PN ---
Subjective Progress Note Date: 07/27/21 Pleasant 80-year-old female came in after a mechanical fall and found to have a right hip fracture and patient is undergoing intramedullary nailing. Patient in any history of condition or failure patient appears to have chronic kidney disease stage III with baseline creatinine of around 1.3 present creatinine is 1.44 patient does take metoprolol at home patient is hypotensive at this time patient will be hydrated patient was started on IV fluids. Patient will need a bolus of IV fluids before surgery EKG showed a sinus bradycardia because of the metoprolol bradycardia improved at this time and patient doesn't have any acute ST-T wave changes patient denied any chest pain at this time. 07/26/2021 Patient evaluated today sitting in the chair. She has a Abbott catheter in place she is postoperative day #2 right hip intramedullary nailing for right hip fracture. Patient reports she has had a bowel movement, passing gas. Tolerating diet Patient is now slightly tachycardic with heart rate in the 110s, we did add a small dose of metroprolol on at 12.5 mg po and will monitor as her metoprolol has been on hold postoperatively. Blood pressure is low normal today. No chest pain, no shortness of breath. No dizziness or lightheadedness. Will follow up with labs in the am and plan is for DC to rehab tomorrow and she can medically cleared for discharge. Order in for abbott catheter discontinuation and voiding trial. 07/27/2021 Patient's postoperative day #3 right hip intramedullary nailing. She is evaluated today resting in bed. She reports passing gas and had bowel movement yesterday. Abbott catheter has been removed and she is urinating without difficulty. Plan is for discharge Thursday to rehab per primary services. Heart rate has improved she's been resumed on metoprolol 25 mg by mouth daily, which she was taking 50 mg po daily. Blood pressure 113/67, oxygenation is 93% on room air. Continue to encourage incentive spirometry and up in chairs for meals. Her sodium today is 134, potassium 3.7, BUN 18.8, creatinine 1.2. Glucose stable 114. Patient is tolerating oral intake, encourage oral intake. Will decrease fluids and repeat CBC tomorrow. Review of Systems Constitutional: Denied any fatigue denied any fever. Cardio vascular: denied any chest pain, palpitations Gastrointestinal: denied any nausea, vomiting, diarrhea Pulmonary: Denied any shortness of breath cough Neurologic denied any new focal deficits All inpatient medications were reviewed and appropriate changes in these medications as dictated in the interval history and assessment and plan. PHYSICAL EXAMINATION: GENERAL: The patient is alert and oriented x3, not in any acute distress. Well developed, well nourished. HEENT: Pupils are round and equally reacting to light. EOMI. No scleral icterus. No conjunctival pallor. Normocephalic, atraumatic. No pharyngeal erythema. No thyromegaly. CARDIOVASCULAR: S1 and S2 present. No murmurs, rubs, or gallops. PULMONARY: Chest is clear to auscultation, no wheezing or crackles. ABDOMEN: Soft, nontender, nondistended, normoactive bowel sounds. No palpable organomegaly. MUSCULOSKELETAL: Deferred to orthopedic surgery. Postsurgical dressing intact. EXTREMITIES: No cyanosis, clubbing, or pedal edema. NEUROLOGICAL: Gross neurological examination did not reveal any focal deficits. SKIN: No rashes. Assessment and plan -Postop Day#3 right hemintramedullary nailing secondary to right hip fracture from mechanical managed by primary, discharge to rehab thursday. -Hypertension currently normotensive, she has been resumed on metoprolol at 25 mg po daily and heart rate in the 80s. EKG has been completed sinus rhythm. -Peripheral neuropathy for which patient is on gabapentin which can be continued on DC. -Hypothyroidism resume levothyroxine, TSH is found to be 40.200, T4 is within normal limits a 1.01, she is on 150 mcg of levothyroxine -Pain management per primary -Chronic kidney disease stage 3 with baseline creatinine around 1.3, creatinine today is 1.2. DVT prophylaxis: As per primary service GI prophylaxis: pepcid Full Code Plan is currently for discharge to rehab. Patient is medically cleared for discharge. Continue metoprolol 25 mg po daily. Encourage ambulation, encourage incentive spirometry. Recommend repeat TSH outpatient. We will continue to follow along with patient this hospital stay. Thank you kindly for this consulta tion. The impression and plan of care has been dictated by Kelley Johnson, Nurse Practitioner as directed. Dr. Estevan MD I have performed a history and physical examination and medical decision making of this patient, discussed the same with the dictator, and agree with the di ctators assessment and plan as written, documented as a scribe. Based on total visit time, I have performed more than 50% of this visit. Objective - Vital Signs Vital signs: Vital Signs Temp 98.0 F 07/27/21 08:00 Pulse 82 07/27/21 08:00 Resp 17 07/27/21 08:00 BP 113/67 07/27/21 08:00 Pulse Ox 93 L 07/27/21 08:00 FiO2 Intake & Output 07/26/21 07/27/21 07/27/21 18:59 06:59 18:59 Intake Total 900 1450 Output Total 300 Balance 600 1450 Intake: Intake, IV Titration 900 950 Amount Sodium Chloride 0.9% 1, 900 900 000 ml @ 75 mls/hr IV . [id number] IRAS[facility] Rx#:[id number] ceFAZolin 2 gm In Sodium 50 Chloride 0.9% 50 ml @ 100 mls/hr IVPB Q8H IRASEMA Rx#: [id number] Oral 500 Output: Urine 300 Uretheral (Abbott) 300 Other: Voiding Method Indwelling Catheter # Bowel Movements 1 - Labs CBC & Chem 7: 07/25/21 23:34 07/27/21 07:12 Labs: Abnormal Lab Results - Last 24 Hours (Table) 07/24/21 Range/Units 21:57 TSH 40.200 H (0.350-5.500) uIU/mL Assessment and Plan Time with Patient: Less than 30
[2021-07-27] MEDS: HYDROmorphone 0.5 MG/0.5 ML SYRINGE IVP PRN (15:08)
[2021-07-27] MEDS: SENNOSIDES-DOCUSATE SODIUM 1 EACH TAB PO SCH (21:26)
[2021-07-27 23:01] LABS: Basophils # (A) 0.1 k/uL (0-0.2); Basophils % (A) 1 %; Eosinophils % (A) 0 %; HCT 26.8 % (34.0-46.0); HGB 8.8 gm/dL (11.4-16.0); Lymphocytes % (A) 13 %; MCH 32.2 pg (25.0-35.0); MCHC 32.8 g/dL (31.0-37.0); MCV 98.2 fL (80.0-100.0); Mean Platelet Volume 9.1; Monocytes # (A) 0.4 k/uL (0-1.0); Monocytes % (A) 6 %; Neutrophils # (A) 6.1 k/uL (1.3-7.7); Neutrophils % (A) 79 %; Platelet Count 147 k/uL (150-450); RBC 2.73 m/uL (3.80-5.40); WBC 7.7 k/uL (3.8-10.6)
[2021-07-28] MEDS: HYDROcodone/APAP 7.5-325MG 1 EACH TAB PO PRN ×2 (01:16→10:53)
[2021-07-28] MEDS: LEVOTHYROXINE 75 MCG TAB PO SCH (06:05)
[2021-07-28] MEDS: ENOXAPARIN 40 MG/0.4 ML SYRINGE SQ SCH (09:23)
[2021-07-28] MEDS: SODIUM CHLORIDE 0.9% 1,000 ML IV SCH (09:24)
[2021-07-28] MEDS: FAMOTIDINE 20 MG TAB PO SCH (09:24)
[2021-07-28] MEDS: METOPROLOL TARTRATE 25 MG TAB PO SCH (09:24)
[2021-07-28] MEDS ORDERED: SODIUM CHLORIDE 0.9% 500 ML 500 ML IV ONE (12:28)
--- NOTE | 2021-07-28 12:30 | P.PN ---
Subjective Pleasant 80-year-old female came in after a mechanical fall and found to have a right hip fracture and patient is undergoing intramedullary nailing. Patient in any history of condition or failure patient appears to have chronic kidney disease stage III with baseline creatinine of around 1.3 present creatinine is 1.44 patient does take metoprolol at home patient is hypotensive at this time patient will be hydrated patient was started on IV fluids. Patient will need a bolus of IV fluids before surgery EKG showed a sinus bradycardia because of the metoprolol bradycardia improved at this time and patient doesn't have any acute ST-T wave changes patient denied any chest pain at this time. 07/26/2021 Patient evaluated today sitting in the chair. She has a Abbott catheter in place she is postoperative day #2 right hip intramedullary nailing for right hip fracture. Patient reports she has had a bowel movement, passing gas. Tolerating diet Patient is now slightly tachycardic with heart rate in the 110s, we did add a small dose of metroprolol on at 12.5 mg po and will monitor as her metoprolol has been on hold postoperatively. Blood pressure is low normal today. No chest pain, no shortness of breath. No dizziness or lightheadedness. Will follow up with labs in the am and plan is for DC to rehab tomorrow and she can medically cleared for discharge. Order in for abbott catheter discontinuation and voiding trial. 07/27/2021 Patient's postoperative day #3 right hip intramedullary nailing. She is evaluated today resting in bed. She reports passing gas and had bowel movement yesterday. Abbott catheter has been removed and she is urinating without difficulty. Plan is for discharge Thursday to rehab per primary services. Heart rate has improved she's been resumed on metoprolol 25 mg by mouth daily, which she was taking 50 mg po daily. Blood pressure 113/67, oxygenation is 93% on room air. Continue to encourage incentive spirometry and up in chairs for meals. Her sodium today is 134, potassium 3.7, BUN 18.8, creatinine 1.2. Glucose stable 114. Patient is tolerating oral intake, encourage oral intake. Will decrease fluids and repeat CBC tomorrow. Objective - Vital Signs Vital signs: Vital Signs Temp 98.1 F 07/28/21 08:00 Pulse 96 07/28/21 08:00 Resp 16 06/19/22 02:00 BP 93/55 07/28/21 08:00 Pulse Ox 95 07/28/21 08:00 FiO2 Intake & Output 07/27/21 07/28/21 07/28/21 18:59 06:59 18:59 Output Total 1100 Balance -1100 Output: Urine 1100 Straight 550 Other: # Voids 0 - Exam GENERAL: The patient is alert and oriented x3, not in any acute distress. Well developed, well nourished. HEENT: Pupils are round and equally reacting to light. EOMI. No scleral icterus. No conjunctival pallor. Normocephalic, atraumatic. No pharyngeal erythema. No t hyromegaly. CARDIOVASCULAR: S1 and S2 present. No murmurs, rubs, or gallops. PULMONARY: Chest is clear to auscultation, no wheezing or crackles. ABDOMEN: Soft, nontender, nondistended, normoactive bowel sounds. No palpable organomegaly. -MUSCULOSKELETAL: No joint swelling or deformity. Right hip surgical wound is closed and clean. EXTREMITIES: No cyanosis, clubbing, or pedal edema. NEUROLOGICAL: Gross neurological examination did not reveal any focal deficits. SKIN: No rashes. no petechiae. - Labs CBC & Chem 7: 07/27/21 22:02 07/27/21 07:12 Labs: Abnormal Lab Results - Last 24 Hours (Table) 07/27/21 07/27/21 Range/Units 07:12 22:02 RBC 2.73 L (3.80-5.40) m/uL Hgb 8.8 L (11.4-16.0) gm/dL Hct 26.8 L (34.0-46.0) % Plt Count 147 L (150-450) k/uL Sodium 134 L (135-145) mmol/L Est GFR (CKD-EPI)AfAm 52.4 L (60.0-200.0) Est GFR (CKD-EPI)NonAf 45.2 L (60.0-200.0) Glucose 114 H (70-110) mg/dL Calcium 8.6 L (8.7-10.3) mg/dL Assessment and Plan Assessment: -Postop Day#4 right hemintramedullary nailing secondary to right hip fracture from mechanical managed by primary, discharge to rehab thursday. -Hypertension currently normotensive, she has been resumed on metoprolol at 25 mg po daily and heart rate in the 80s. EKG has been completed sinus rhythm. -Peripheral neuropathy for which patient is on gabapentin which can be continued on DC. -Hypothyroidism resume levothyroxine, TSH is found to be 40.200, T4 is within normal limits a 1.01, she is on 150 mcg of levothyroxine -Pain management per primary -Chronic kidney disease stage 3 with baseline creatinine around 1.3, creatinine today is 1.2 Plan: This is a pleasant 80 years old female status post intramedullary nail for her right hip fracture. With borderline hypertension postoperatively which is expected. Continue with pain management and DVT prophylaxis per surgery primary team. IV hydration, we will give 500 mL of IV normal saline bolus. A prolonged lower dose of 25 mg daily compared to 50 mg at home. Surgery primary team on the case Labs and medication were reviewed.. Continue same treatment. Continue with symptomatic treatment. Resume home medication. Monitor lytes and vitals. DVT and GI prophylaxis. Further recommendationsas per clinical course of the patient DVT prophylaxis: Per surgery team, currently on Subcutaneous Lovenox GI Prophylaxis: Pepcid PT/OT: Pending Thank you for consulting us
--- NOTE | 2021-07-28 13:00 | P.PN ---
Subjective Progress Note Date: 07/28/21 Principal diagnosis: Right hip IT fracture Patient was seen at bedside this morning resting comfortably lying in semirecumbent position. Patient says she did work with therapy yesterday. She says she was able to get up and sit at bedside with assistance and walk around the room a bit with walker and sat in chair. Patient says her pain is under much better control today. Patient says [place] has helped control her pain. Patient says she has used incentive spirometer. Patient denies chest pain, fever, shortness breath, nausea, incontinence vision, loss of bowel/bladder cont rol. Objective - Vital Signs Vital signs: Vital Signs Temp 98.1 F 07/28/21 08:00 Pulse 96 07/28/21 08:00 Resp 16 07/28/21 02:00 BP 93/55 07/28/21 08:00 Pulse Ox 95 07/28/21 08:00 FiO2 Intake & Output 07/27/21 07/28/21 07/28/21 18:59 06:59 18:59 Output Total 1100 Balance -1100 Output: Urine 1100 Straight 550 Other: # Voids 0 1 - Exam Optifoam dressings present on right lateral hip currently. Minimal drainage at this time. Patient is moderate tenderness to palpation along the right lateral hip near incisions. Sensation is equal, symmetric, bilateral intact throughout the upper and lower extremities. Patient does have limited range of motion in right hip flexion/extension as well as knee flexion/extension due to pain. Patient has full range of motion in bilateral dorsi/plantar flexion of the ankles. Patient is able wiggle digits in feet. Patient has full range of motion bilateral upper extremities as well as left lower extremity. 4+/5 strength in bilateral upper extremities and left lower extremity. 3+/5 and right lower extremity in resisted hip flexion/extension and knee flexion/extension. Neurovascular status is intact bilaterally. Cap refill under 3 seconds in digits of upper extremities. Radial pulse intact, bilaterally, 2+. DP pulses intact bilaterally. Negative Homans bilaterally. - Labs CBC & Chem 7: 07/27/21 22:02 07/27/21 07:12 Labs: Abnormal Lab Results - Last 24 Hours (Table) 07/27/21 Range/Units 22:02 RBC 2.73 L (3.80-5.40) m/uL Hgb 8.8 L (11.4-16.0) gm/dL Hct 26.8 L (34.0-46.0) % Plt Count 147 L (150-450) k/uL Assessment and Plan Assessment: 1. Right hip IT fracture Postoperative day #3 status post right hip IM nail Plan: 1. Right hip IT fracture - surgery performed , 07/25/2021 - right hip IM nail. Patient stable at bedside this morning. Patient is to continue to work with physical therapy and encourage incentive spirometer use. Weight-bear as tolerated with walker and assistance. Will change surgical dressings tmrw before discharge to [facility]. Will change surgical dressings tmrw before discharge to [facility]. Plan for discharge to rehab [facility], 07/29/2021. 2. Appreciate medical management 3. Pain management - [place]; Dilaudid only if necessary 4. DVT prophylaxis - Lovenox 5. GI prophylaxis - lactulose; senna 6. PT/OT - weightbearing as tolerated with walker 7. Encourage incentive spirometer use 8. Discharge planning - plan for discharge to rehab [facility], 07/29/2021 Time with Patient: Less than 30
[2021-07-28] MEDS: SENNOSIDES-DOCUSATE SODIUM 1 EACH TAB PO SCH (21:00)
[2021-07-29] MEDS: HYDROcodone/APAP 7.5-325MG 1 EACH TAB PO PRN ×4 (00:13→23:59)
[2021-07-29] MEDS: LEVOTHYROXINE 75 MCG TAB PO SCH (06:01)
[2021-07-29] MEDS: SODIUM CHLORIDE 0.9% 1,000 ML IV SCH (06:03)
[2021-07-29 07:29] LABS: African American GFR (CKD) 51 (>60 ml/min/1.73 sqM); Anion Gap 7 mmol/L; Blood Urea Nitrogen 18 mg/dL (7-17); Calcium 8.4 mg/dL (8.4-10.2); Carbon Dioxide 25 mmol/L (22-30); Chloride 101 mmol/L (98-107); Glucose 108 mg/dL (74-99); Non-African American GFR(CKD) 44 (>60 ml/min/1.73 sqM); Potassium 3.6 mmol/L (3.5-5.1); Sodium 133 mmol/L (137-145)
[2021-07-29] MEDS: METOPROLOL TARTRATE 25 MG TAB PO SCH (08:32)
[2021-07-29] MEDS: ENOXAPARIN 40 MG/0.4 ML SYRINGE SQ SCH (08:32)
[2021-07-29] MEDS: FAMOTIDINE 20 MG TAB PO SCH (08:32)
[2021-07-29 09:05] LABS: African American GFR (CKD) 55.3 (60.0-200.0); Anion Gap 7.9 mmol/L (10.00-18.00); BUN/Creat Ratio 15.73 Ratio (12.00-20.00); Blood Urea Nitrogen 17.3 mg/dL (9.0-27.0); Calcium 8.2 mg/dL (8.7-10.3); Carbon Dioxide 24.1 mmol/L (20.0-27.5); Non-African American GFR(CKD) 47.7 (60.0-200.0)
[2021-07-29 09:17] LABS: Basophils % (A) 1 %; Eosinophils # (A) 0.2 k/uL (0-0.7); Eosinophils % (A) 3 %; HCT 22.8 % (34.0-46.0); HGB 7.6 gm/dL (11.4-16.0); Hypochromasia Slight; Lymphocytes # (A) 1.1 k/uL (1.0-4.8); Lymphocytes % (A) 23 %; MCH 32.7 pg (25.0-35.0); MCHC 33.2 g/dL (31.0-37.0); MCV 98.4 fL (80.0-100.0); Mean Platelet Volume 9.6; Monocytes # (A) 0.4 k/uL (0-1.0); Monocytes % (A) 9 %; Neutrophils % (A) 64 %; Platelet Count 145 k/uL (150-450); RBC 2.32 m/uL (3.80-5.40); WBC 4.7 k/uL (3.8-10.6)
--- NOTE | 2021-07-29 09:56 | P.DS ---
Providers Date of admission: 07/24/21 19:39 Expected date of discharge: 07/29/21 Attending physician: López Phelan DO Consults: 07/24/21 19:39 Consult Physician Urgent Consulting Provider: Sienna Garcia Consult Reason/Comments: Medical management Do you want consulting provider notified?: Yes Primary care physician: Chavez Lea [facility] Course: Date of admission: 07/24/2021 Date of discharge: 07/29/2021 Admission diagnosis: Right hip IT fracture Discharge diagnosis: Same Attending physician: Dr. Phelan Surgical procedures: Right hip IM nail Brief history: Patient is a 80-year-old female with a history of right hip IT fracture status post fall. At this point patient has failed conservative treatment measures and has opted to proceed with a elective right total hip arthroplasty. Hospital course: Details of patient's surgery can be found in operative report. Patient tolerated the procedure well and was subsequently transported to orthopedic floor. Patient's orthopeidc and medical care was provided daily. Patient had daily laboratory tests performed for evaluation of overall blood counts. Patient had daily physical therapy to include strengthening range of motion as well as education with walker ambulation. Patient was treated with Lovenox for their postoperative DVT prophylaxis during their inpatient stay. Patient was noted to have a relatively uneventful postoperative course. Patient reported satisfactory pain control with oral pain medications by postoperative day 4. Patient showed satisfactory progress with physical therapy. Patient moved steadily through the program and had no difficulty meeting the goals by postoperative day 4. Given patient's otherwise satisfactory course and having met physical therapy goals, plan is to discharge patient to rehab on postoperative day 4. Discharge condition/disposition: Patient will be discharged to rehab in stable condition. Discharge medications: Instructions are given on resumption of patient's normal daily medications per primary care recommendation, in addition patient will be prescribed [place]; Colace; ferrous sulfate; Lovenox. Discharge instructions: 1. Wound care and infection precautions, keep incision dry and covered while showering, no lotions, creams, moisturizers. No soaking, tubs, pools, hottubs. Do not scrub over the incision. 2. Weight-bear [as tolerated] with walker / cane until follow-up. 3. Ice and elevate when necessary. Do not exceed 20 minutes per hour with ice pack. 4. Nursing care. 5. Pysical therapy. 6. Pain meds and anticoagulants per prescription. 7. Pain medication has potential to cause constipation. Increase oral fluid and fiber intake. Contact primary care provider if you have not had a bowel movement within 48 hours after discharge 8. No anti-inflammatory medication until discussed at first post operative visit, this including Motrin, Aleve, Mobic, Diclofenac. 9. Follow up in office at [address] López Phelan 10. Follow up with your primary care doctor 7-10 days after discharge. 11. Contact [facility] with any questions, . Keep incision clean, dry, intact. Surgical dressing may be removed in 5 days, 08/03/2021. Assessment: Right hip IT fracture Procedures: Right hip IM nail Patient Condition at Discharge: Good Plan - Discharge Summary New Discharge Prescriptions: New HYDROcodone/APAP 7.5-325MG [[place] 7.5] 1 each PO Q6HR PRN #124 tab PRN Reason: Pain Ferrous Sulfate [Feosol] 325 mg PO DAILY #14 tab Enoxaparin [Lovenox] 40 mg SQ DAILY #21 each Docusate [Colace] 100 mg PO DAILY #30 capsule No Action Naproxen 500 mg PO BID PRN PRN Reason: Pain Metoprolol Tartrate [Lopressor] 50 mg PO DAILY Ibuprofen [Motrin] 600 mg PO BID PRN PRN Reason: Pain HYDROcodone/APAP 5-325MG [[place] 5-325] 1 tab PO HS Baclofen 10 mg PO BID PRN PRN Reason: Pain Gabapentin [Neurontin] See Taper PO DIRECTED Levothyroxine Sodium [Synthroid] 150 mcg PO DAILY Discharge Medication List Naproxen 500 mg PO BID PRN 11/17/13 [History] Baclofen 10 mg PO BID PRN 07/24/21 [History] Gabapentin [Neurontin] See Taper PO DIRECTED 07/24/21 [History] HYDROcodone/APAP 5-325MG [[place] 5-325] 1 tab PO HS 07/24/21 [History] Ibuprofen [Motrin] 600 mg PO BID PRN 07/24/21 [History] Levothyroxine Sodium [Synthroid] 150 mcg PO DAILY 07/24/21 [History] Metoprolol Tartrate [Lopressor] 50 mg PO DAILY 07/24/21 [History] Docusate [Colace] 100 mg PO DAILY #30 capsule 07/29/21 [Rx] Enoxaparin [Lovenox] 40 mg SQ DAILY #21 each 07/29/21 [Rx] Ferrous Sulfate [Feosol] 325 mg PO DAILY #14 tab 07/29/21 [Rx] HYDROcodone/APAP 7.5-325MG [[place] 7.5] 1 each PO Q6HR PRN #124 tab 07/29/21 [Rx] Follow up Appointment(s)/Referral(s): Kyree Barreto MD [STAFF PHYSICIAN] - 1-2 days López Phelan DO [Doctor of Osteopathic Medicine] - 2 Weeks Patient Instructions/Handouts: Intramedullary Nailing (DC), Intramedullary Nailing (GEN) Activity/Diet/Wound Care/Special Instructions: Orthopedic Discharge Instructions: -WBAT RLE with assist -Pain control as needed -Maintain incision CDI, do not submerge incisions. OK to shower. -GI ppx -Lovenox daily for 4 weeks post op DVT ppx along with early ambulation. TEDS, SCDs -Daily PT/OT with assist Discharge Disposition: TRANSFER TO SNF/ECF
--- NOTE | 2021-07-29 10:02 | P.PN ---
Subjective Progress Note Date: 07/29/21 Principal diagnosis: Right hip IT fracture Patient was seen at bedside this morning resting comfortably lying in semirecumbent position. Patient says she did work with therapy yesterday. She says she was able to get up and sit at bedside with assistance and walk around the room a bit with walker and sat in chair. Patient says her pain is under much better control today. Patient says [place] has helped control her pain. Patient says she has used incentive spirometer. Patient denies chest pain, fever, shortness breath, nausea, incontinence vision, loss of bowel/bladder cont rol. Objective - Vital Signs Vital signs: Vital Signs Temp 98.1 F 07/29/21 07:22 Pulse 98 07/29/21 07:41 Resp 17 07/29/21 07:41 BP 96/60 07/29/21 07:22 Pulse Ox 93 L 07/29/21 07:22 FiO2 Intake & Output 07/28/21 07/29/21 07/29/21 18:59 06:59 18:59 Output Total 200 Balance -200 Output: Urine 200 Other: Voiding Method External Catheter # Voids 1 # Bowel Movements 1 - Exam Optifoasm dressings removed. Minimal drainage at this time. [place] well aligned. New optifoam dressings placed on right hip. moderate tenderness to palpation along the right lateral hip near incisions. Sensation is equal, symmetric, bilateral intact throughout the upper and lower extremities. Patient does have limited range of motion in right hip flexion/extension as well as knee flexion/extension due to pain. Patient has full range of motion in bilateral dorsi/plantar flexion of the ankles. Patient is able wiggle digits in feet. Patient has full range of motion bilateral upper extremities as well as left lower extremity. 4+/5 strength in bilateral upper extremities and left lower extremity. 3+/5 and right lower extremity in resisted hip flexion/extension and knee flexion/extension. Neurovascular status is intact bilaterally. Cap refill under 3 seconds in digits of upper extremities. Radial pulse intact, bilaterally, 2+. DP pulses intact bilaterally. Negative Homans bilaterally. - Labs CBC & Chem 7: 07/29/21 05:55 07/29/21 05:55 Labs: Abnormal Lab Results - Last 24 Hours (Table) 06/19/22 06/20/22 06/20/22 Range/Units 09:05 05:55 05:55 RBC 2.32 L (3.80-5.40) m/uL Hgb 7.6 L (11.4-16.0) gm/dL Hct 22.8 L (34.0-46.0) % Plt Count 145 L (150-450) k/uL Sodium 133 L (137-145) mmol/L Anion Gap 7.90 L (10.00-18.00) mmol/L BUN 18 H (7-17) mg/dL Creatinine 1.17 H (0.52-1.04) mg/dL Est GFR (CKD-EPI)AfAm 55.3 L (60.0-200.0) Est GFR (CKD-EPI)NonAf 47.7 L (60.0-200.0) Glucose 108 H (74-99) mg/dL Calcium 8.2 L (8.7-10.3) mg/dL Assessment and Plan Assessment: 1. Right hip IT fracture Postoperative day #4 status post right hip IM nail Plan: 1. Right hip IT fracture - surgery performed , 07/25/2021 - right hip IM nail. Patient stable at bedside this morning. Patient is to continue to work with physical therapy. Surgical dressings changed at bedside. Incision healing well at this time. [place] well aligned. Hemoglobin 7.6. Patient to take Ferrous sulfate daily at rehab. Discharge to rehab today, 07/29/2021. 2. Appreciate medical management 3. Pain management - [place]; Dilaudid only if necessary 4. DVT prophylaxis - Lovenox 5. GI prophylaxis - lactulose; senna 6. PT/OT - weightbearing as tolerated with walker 7. Encourage incentive spirometer use 8. Discharge planning - Discharge to rehab today, 07/29/2021 Time with Patient: Less than 30
--- NOTE | 2021-07-29 11:36 | P.PN ---
Subjective Pleasant 80-year-old female came in after a mechanical fall and found to have a right hip fracture and patient is undergoing intramedullary nailing. Patient in any history of condition or failure patient appears to have chronic kidney disease stage III with baseline creatinine of around 1.3 present creatinine is 1.44 patient does take metoprolol at home patient is hypotensive at this time patient will be hydrated patient was started on IV fluids. Patient will need a bolus of IV fluids before surgery EKG showed a sinus bradycardia because of the metoprolol bradycardia improved at this time and patient doesn't have any acute ST-T wave changes patient denied any chest pain at this time. 07/26/2021 Patient evaluated today sitting in the chair. She has a Abbott catheter in place she is postoperative day #2 right hip intramedullary nailing for right hip fracture. Patient reports she has had a bowel movement, passing gas. Tolerating diet Patient is now slightly tachycardic with heart rate in the 110s, we did add a small dose of metroprolol on at 12.5 mg po and will monitor as her metoprolol has been on hold postoperatively. Blood pressure is low normal today. No chest pain, no shortness of breath. No dizziness or lightheadedness. Will follow up with labs in the am and plan is for DC to rehab tomorrow and she can medically cleared for discharge. Order in for abbott catheter discontinuation and voiding trial. 07/27/2021 Patient's postoperative day #3 right hip intramedullary nailing. She is evaluated today resting in bed. She reports passing gas and had bowel movement yesterday. Abbott catheter has been removed and she is urinating without difficulty. Plan is for discharge Thursday to rehab per primary services. Heart rate has improved she's been resumed on metoprolol 25 mg by mouth daily, which she was taking 50 mg po daily. Blood pressure 113/67, oxygenation is 93% on room air. Continue to encourage incentive spirometry and up in chairs for meals. Her sodium today is 134, potassium 3.7, BUN 18.8, creatinine 1.2. Glucose stable 114. Patient is tolerating oral intake, encourage oral intake. Will decrease fluids and repeat CBC tomorrow. 07/29/2021 Patient is seen and examined by me at bedside as a follow-up. Compared to yesterday when I saw her she is doing much better, her pain is better controlled. She denies any other symptoms or complaints. No chest pain or abdominal pain, no diarrhea or vomiting. She is tolerates diet well. She is hemodynamically stable. Repeat labs showing hemoglobin 7.6 which is expected postoperatively and patient was started on iron pills and as per primary team upon discharge. Creatinine is back to normal at 1.1. Sodium improved to 137, rest of BMP and CBC are unremarkable. [facility]. Keep the metoprolol at lower dose of 25 mg. Patient was instructed she'll need to repeat thyroid function tests in one month with her PCP Dr. Byrne and she agrees to call to make her own appointment. Also patient was instructed to avoid NSAIDs upon discharge and she agrees Objective - Vital Signs Vital signs: Vital Signs Temp 98.1 F 07/29/21 07:22 Pulse 98 07/29/21 07:41 Resp 17 07/29/21 07:41 BP 96/60 07/29/21 07:22 Pulse Ox 93 L 07/29/21 07:22 FiO2 Intake & Output 07/28/21 07/29/21 07/29/21 18:59 06:59 18:59 Output Total 200 Balance -200 Output: Urine 200 Other: Voiding Method External Catheter # Voids 1 # Bowel Movements 1 - Exam GENERAL: The patient is alert and oriented x3, not in any acute distress. Well developed, well nourished. HEENT: Pupils are round and equally reacting to light. EOMI. No scleral icterus. No conjunctival pallor. Normocephalic, atraumatic. No pharyngeal erythema. No thyromegaly. CARDIOVASCULAR: S1 and S2 present. No murmurs, rubs, or gallops. PULMONARY: Chest is clear to auscultation, no wheezing or crackles. ABDOMEN: Soft, nontender, nondistended, normoactive bowel sounds. No palpable organomegaly. -MUSCULOSKELETAL: No joint swelling or deformity. Right hip surgical wound is closed and clean. EXTREMITIES: No cyanosis, clubbing, or pedal edema. NEUROLOGICAL: Gross neurological examination did not reveal any focal deficits. SKIN: No rashes. no petechiae. - Labs CBC & Chem 7: 07/29/21 05:55 07/29/21 05:55 Labs: Abnormal Lab Results - Last 24 Hours (Table) 07/28/21 07/29/21 07/29/21 Range/Units 09:05 05:55 05:55 RBC 2.32 L (3.80-5.40) m/uL Hgb 7.6 L (11.4-16.0) gm/dL Hct 22.8 L (34.0-46.0) % Plt Count 145 L (150-450) k/uL Sodium 133 L (137-145) mmol/L Anion Gap 7.90 L (10.00-18.00) mmol/L BUN 18 H (7-17) mg/dL Creatinine 1.17 H (0.52-1.04) mg/dL Est GFR (CKD-EPI)AfAm 55.3 L (60.0-200.0) Est GFR (CKD-EPI)NonAf 47.7 L (60.0-200.0) Glucose 108 H (74-99) mg/dL Calcium 8.2 L (8.7-10.3) mg/dL Assessment and Plan Assessment: -Postop Day#4 right hemintramedullary nailing secondary to right hip fracture from mechanical managed by primary, discharge to rehab thursday. -Hypertension currently normotensive, she has been resumed on metoprolol at 25 mg po daily and heart rate in the 80s. EKG has been completed sinus rhythm. -Peripheral neuropathy for which patient is on gabapentin which can be continued on DC. -Hypothyroidism resume levothyroxine, TSH is found to be 40.200, T4 is within normal limits a 1.01, she is on 150 mcg of levothyroxine -Pain management per primary -Chronic kidney disease stage 3 with baseline creatinine around 1.3, creatinine today is 1.2 Plan: This is a pleasant 80 years old female status post intramedullary nail for her right hip fracture. With borderline hypertension postoperatively which is expected. Continue with pain management and DVT prophylaxis per surgery primary team. She is euvolemic upon discharge A prolonged lower dose of 25 mg daily compared to 50 mg at home. Surgery primary team on the case continue with iron pills Avoid NSAIDs Check thyroid function tests as an outpatient, patient informed and she agrees Labs and medication were reviewed.. Continue same treatment. Continue with symptomatic treatment. Resume home medication. Monitor lytes and vitals. DVT and GI prophylaxis. Further recommendationsas per clinical course of the patient DVT prophylaxis: Per surgery team, currently on Subcutaneous Lovenox GI Prophylaxis: Pepcid Thank you for consulting us
[2021-07-29] MEDS: FERROUS SULFATE 325 MG TAB PO SCH ×2 (11:52→17:05)
--- NOTE | 2021-07-29 16:15 | P.PN ---
Progress Note - Text Progress Note Date: 07/29/21 [facility] Progress Note Patient seen and examined, I reviewed the note, discussed the case with the PA first hand and agree with the assessment and plan of LISA Higginbotham. Please see my notes below for any additional recommendations. SUBJECTIVE: Patient seen and examined she is doing fine. She states she is able to move a little bit better today. She denies chills shortness breath or chest pain. OBJECTIVE: Vital signs stable General: AOX3, NAD Incision CDI Motor Exam: RUE: 06/13 SA, EF, EE, WF, WE, Intrinsic, Aviation Mechanic LUE: 5 SA, EF, EE, WF, WE, Intrinsic, Aviation Mechanic RLE: /5 HF, KE, KF, DF, PF, EHL, FHL LLE: /5 HF, KE, KF, DF, PF, EHL, FH Deconditionoing Reflexes: 2/4 in UE and LE b/l SILT C5-T1 and L2-S1 Dermatomal deficit: [] +distal pulses palpable Negative hoffmans b/l Negative babinski b/l No clonus ASSESSMENT: 80 yo female s/p R hip IMN fixation PLAN: 1. Stable for rehab 2. Increase activity, WBAT RLE 3. PT/OT, OK for up and about with assist 4. TEDs, SCDs, Early ambulation 5. Lovenox 4 weeks post op 6. Pain control prn 7. GI ppx prn
[2021-07-29] MEDS: SENNOSIDES-DOCUSATE SODIUM 1 EACH TAB PO SCH (22:28)
[2021-07-29] MEDS: HYDROmorphone 0.5 MG/0.5 ML SYRINGE IVP PRN (22:37)
[2021-07-29] MEDS ORDERED: SODIUM CHLORIDE 0.9% 500 ML 500 ML IV ONE ×2 (22:48→22:53)
[2021-07-30] MEDS: SODIUM CHLORIDE 0.9% 1,000 ML IV SCH (04:54)
[2021-07-30] MEDS: LEVOTHYROXINE 75 MCG TAB PO SCH (05:22)
[2021-07-30] MEDS: HYDROcodone/APAP 7.5-325MG 1 EACH TAB PO PRN ×2 (05:26→13:24)
[2021-07-30] MEDS ORDERED: METOPROLOL TARTRATE 12.5 MG TAB PO SCH (09:00)
--- NOTE | 2021-07-30 09:00 | P.PN ---
Subjective Progress Note Date: 07/30/21 Principal diagnosis: Right hip IT fracture Patient was seen at bedside this morning resting comfortably lying in semirecumbent position. Patient says she did work with therapy yesterday. She says she was able to get up and sit at bedside with assistance and walk around the room a bit with walker and sat in chair. Patient says her pain is under much better control today. Patient says [place] has helped control her pain. Patient says she has used incentive spirometer. Patient denies chest pain, fever, shortness breath, nausea, incontinence vision, loss of bowel/bladder cont rol. Objective - Vital Signs Vital signs: Vital Signs Temp 98.5 F 07/30/21 08:00 Pulse 75 07/30/21 08:00 Resp 14 07/30/21 08:00 BP 92/49 07/30/21 08:00 Pulse Ox 93 L 07/30/21 08:00 FiO2 Intake & Output 07/29/21 07/30/21 07/30/21 18:59 06:59 18:59 Output Total 1000 600 Balance -1000 -600 Output: Urine 1000 600 Straight 600 Other: Voiding Method External Catheter External Catheter # Bowel Movements 1 - Exam Optifoam dressings present over incision on RLE. Moderate tenderness to palpation along the right lateral hip near incisions. Sensation is equal, symmetric, bilateral intact throughout the upper and lower extremities. Patient does have limited range of motion in right hip flexion/extension as well as knee flexion/extension due to pain. Patient has full range of motion in bilateral dorsi/plantar flexion of the ankles. Patient is able wiggle digits in feet. Patient has full range of motion bilateral upper extremities as well as left lower extremity. 4+/5 strength in bilateral upper extremities and left lower extremity. 3+/5 and right lower extremity in resisted hip flexion/extension and knee flexion/extension. Neurovascular status is intact bilaterally. Cap refill under 3 seconds in digits of upper extremities. Radial pulse intact, bilaterally, 2+. DP pulses intact bilaterally. Negative Homans bilaterally. - Labs CBC & Chem 7: 07/29/21 05:55 07/29/21 05:55 Labs: Abnormal Lab Results - Last 24 Hours (Table) 07/29/21 07/29/21 Range/Units 05:55 05:55 RBC 2.32 L (3.80-5.40) m/uL Hgb 7.6 L (11.4-16.0) gm/dL Hct 22.8 L (34.0-46.0) % Plt Count 145 L (150-450) k/uL Anion Gap 7.90 L (10.00-18.00) mmol/L Est GFR (CKD-EPI)AfAm 55.3 L (60.0-200.0) Est GFR (CKD-EPI)NonAf 47.7 L (60.0-200.0) Calcium 8.2 L (8.7-10.3) mg/dL Assessment and Plan Assessment: 1. Right hip IT fracture Postoperative day #5 status post right hip IM nail Plan: 1. Right hip IT fracture - surgery performed , 07/25/2021 - right hip IM nail. Patient stable at bedside this morning. Patient is to continue to work with physical therapy. Optifoam dressings changed yesterday. Patient to take Ferrous sulfate daily at rehab. Discharge to rehab today, 07/30/2021. 2. Appreciate medical management 3. Pain management - [place]; Dilaudid only if necessary 4. DVT prophylaxis - Lovenox 5. GI prophylaxis - lactulose; senna 6. PT/OT - weightbearing as tolerated with walker 7. Encourage incentive spirometer use 8. Discharge planning - Discharge to rehab today, 07/29/2021 Time with Patient: Less than 30
[2021-07-30] MEDS: ENOXAPARIN 40 MG/0.4 ML SYRINGE SQ SCH (09:54)
[2021-07-30] MEDS: FERROUS SULFATE 325 MG TAB PO SCH (09:55)
[2021-07-30] MEDS: FAMOTIDINE 20 MG TAB PO SCH (09:55)
[2021-07-30 12:26] LABS: Basophils % (A) 1 %; Eosinophils # (A) 0.2 k/uL (0-0.7); Eosinophils % (A) 4 %; HCT 26.8 % (34.0-46.0); HGB 8.7 gm/dL (11.4-16.0); Hypochromasia Slight; Lymphocytes # (A) 0.9 k/uL (1.0-4.8); Lymphocytes % (A) 16 %; MCH 32.3 pg (25.0-35.0); MCHC 32.4 g/dL (31.0-37.0); MCV 99.6 fL (80.0-100.0); Macrocytosis Slight; Mean Platelet Volume 8.5; Monocytes # (A) 0.3 k/uL (0-1.0); Monocytes % (A) 6 %; Neutrophils % (A) 73 %; Platelet Count 202 k/uL (150-450); RBC 2.69 m/uL (3.80-5.40); RDW 14.1 % (11.5-15.5); WBC 5.5 k/uL (3.8-10.6)
[2021-07-30 13:01] LABS: African American GFR (CKD) 58 (>60 ml/min/1.73 sqM); Anion Gap 7 mmol/L; Blood Urea Nitrogen 16 mg/dL (7-17); Calcium 8.4 mg/dL (8.4-10.2); Carbon Dioxide 27 mmol/L (22-30); Chloride 100 mmol/L (98-107); Glucose 103 mg/dL (74-99); Magnesium 1.3 mg/dL (1.6-2.3); Non-African American GFR(CKD) 50 (>60 ml/min/1.73 sqM); Potassium 3.5 mmol/L (3.5-5.1); Sodium 134 mmol/L (137-145)
[2021-07-30] MEDS: MAGNESIUM SULFATE-D5W PMX 1 GM in DEXTROSE/WATER 1 100ML.BAG IVPB SCH ×2 (13:19→14:31)
[2021-07-30 15:16] VITALS: BP 100/55; PULSE 83; RESP 16; TEMP 98
--- NOTE | 2021-07-30 16:46 | P.PN ---
Subjective Pleasant 80-year-old female came in after a mechanical fall and found to have a right hip fracture and patient is undergoing intramedullary nailing. Patient in any history of condition or failure patient appears to have chronic kidney disease stage III with baseline creatinine of around 1.3 present creatinine is 1.44 patient does take metoprolol at home patient is hypotensive at this time patient will be hydrated patient was started on IV fluids. Patient will need a bolus of IV fluids before surgery EKG showed a sinus bradycardia because of the metoprolol bradycardia improved at this time and patient doesn't have any acute ST-T wave changes patient denied any chest pain at this time. 07/26/2021 Patient evaluated today sitting in the chair. She has a Abbott catheter in place she is postoperative day #2 right hip intramedullary nailing for right hip fracture. Patient reports she has had a bowel movement, passing gas. Tolerating diet Patient is now slightly tachycardic with heart rate in the 110s, we did add a small dose of metroprolol on at 12.5 mg po and will monitor as her metoprolol has been on hold postoperatively. Blood pressure is low normal today. No chest pain, no shortness of breath. No dizziness or lightheadedness. Will follow up with labs in the am and plan is for DC to rehab tomorrow and she can medically cleared for discharge. Order in for abbott catheter discontinuation and voiding trial. 07/27/2021 Patient's postoperative day #3 right hip intramedullary nailing. She is evaluated today resting in bed. She reports passing gas and had bowel movement yesterday. Abbott catheter has been removed and she is urinating without difficulty. Plan is for discharge Thursday to rehab per primary services. Heart rate has improved she's been resumed on metoprolol 25 mg by mouth daily, which she was taking 50 mg po daily. Blood pressure 113/67, oxygenation is 93% on room air. Continue to encourage incentive spirometry and up in chairs for meals. Her sodium today is 134, potassium 3.7, BUN 18.8, creatinine 1.2. Glucose stable 114. Patient is tolerating oral intake, encourage oral intake. Will decrease fluids and repeat CBC tomorrow. 07/29/2021 Patient is seen and examined by me at bedside as a follow-up. Compared to yesterday when I saw her she is doing much better, her pain is better controlled. She denies any other symptoms or complaints. No chest pain or abdominal pain, no diarrhea or vomiting. She is tolerates diet well. She is hemodynamically stable. Repeat labs showing hemoglobin 7.6 which is expected postoperatively and patient was started on iron pills and as per primary team upon discharge. Creatinine is back to normal at 1.1. Sodium improved to 137, rest of BMP and CBC are unremarkable. Patient is going to [facility] upon discharge. Keep the metoprolol at lower dose of 25 mg. Patient was instructed she'll need to repeat thyroid function tests in one month with her PCP Dr. Byrne and she agrees to call to make her own appointment. Also patient was instructed to avoid NSAIDs upon discharge and she agrees 07/30/2021 Patient today was lying in bed comfortable, says that her pain is better controlled. She is alert and awake and oriented. She denies any chest pain or dyspnea. She had no abdominal pain. She had normal bowel movement. No dysuria or urgency or hesitancy. However she has some buildup of urine and she needed straight cathed yesterday as per bed side nurse. No headache or weakness or numbness, no syncope. No vertigo. Her systolic blood pressure is 90s to 100. Patient is asymptomatic. 1 L of normal sinus provided yesterday. Her blood pressure is better. Also her metoprolol dose was lowered from 50 down to 25 mg Patient had low magnesium which is been replaced. Hemoglobin is improved up to 8.7. Creatinine 1.06. Magnesium 1.3 which is replaced. I discussed the case with the bedside nurse. We recommended to place a Abbott catheter for the patient. Later on primary team checked her bladder scan and it was low as per bed side nurse. I talked to the patient and instructed to follow up with PCP in one week after discharge. Also recommended to check her thyroid function tests in one month and she verbalized understanding and acceptance. Also we recommended to monitor her blood tests including CBC, BMP and magnesium level in 2-3 days and check her for urinary retention every 2-3 days, and this was discussed with the bedside nurse. Objective - Vital Signs Vital signs: Vital Signs Temp 98.5 F 07/30/21 08:00 Pulse 121 H 07/30/21 09:33 Resp 14 07/30/21 08:00 BP 112/60 07/30/21 09:33 Pulse Ox 93 L 07/30/21 08:00 FiO2 Intake & Output 07/29/21 07/30/21 07/30/21 18:59 06:59 18:59 Output Total 1000 600 Balance -1000 -600 Output: Urine 1000 600 Straight 600 Other: Voiding Method External Catheter External Catheter # Bowel Movements 1 - Exam GENERAL: The patient is alert and oriented x3, not in any acute distress. Well developed, well nourished. HEENT: Pupils are round and equally reacting to light. EOMI. No scleral icterus. No conjunctival pallor. Normocephalic, atraumatic. No pharyngeal erythema. No thyromegaly. CARDIOVASCULAR: S1 and S2 present. No murmurs, rubs, or gallops. PULMONARY: Chest is clear to auscultation, no wheezing or crackles. ABDOMEN: Soft, nontender, nondistended, normoactive bowel sounds. No palpable organomegaly. -MUSCULOSKELETAL: No joint swelling or deformity. Right hip surgical wound is closed and clean. EXTREMITIES: No cyanosis, clubbing, or pedal edema. NEUROLOGICAL: Gross neurological examination did not reveal any focal deficits. SKIN: No rashes. no petechiae. - Labs CBC & Chem 7: 07/30/21 12:07 07/30/21 12:07 Assessment and Plan Assessment: -Postop Day#4 right hemintramedullary nailing secondary to right hip fracture from mechanical managed by primary, discharge to rehab thursday. -Hypertension currently normotensive, she has been resumed on metoprolol at 25 mg po daily and heart rate in the 80s. EKG has been completed sinus rhythm. -Peripheral neuropathy for which patient is on gabapentin which can be continued on DC. -Hypothyroidism resume levothyroxine, TSH is found to be 40.200, T4 is within normal limits a 1.01, she is on 150 mcg of levothyroxine -Pain management per primary -Chronic kidney disease stage 3 with baseline creatinine around 1.3, creatinine today is 1.2 Plan: This is a pleasant 80 years old female status post intramedullary nail for her right hip fracture. With borderline hypertension postoperatively which is expected. Patient is medically stable Continue with pain management and DVT prophylaxis per surgery primary team. She is euvolemic today lower dose of 25 mg daily compared to 50 mg at home. Orthopedic Surgery primary team on the case continue with iron pills Avoid NSAIDs Check thyroid function tests as an outpatient, patient informed and she agrees Labs and medication were reviewed.. Continue same treatment. Continue with symptomatic treatment. Resume home medication. Monitor lytes and vitals. DVT and GI prophylaxis. Further recommendations as per clinical course of the patient Patient is going to rehab upon discharge with close monitoring and strengthening exercises DVT prophylaxis: Per surgery team, currently on Subcutaneous Lovenox GI Prophylaxis: Robyn Thank you for consulting us Discussed with the bedside nurse
== END 2021-07-30 17:03 | DRG 482 ==
LOC: EC 17:25 → 4SSUR 19:39
PROVIDERS: ADMIT Orthopaedic Surgery; ATTEND Orthopaedic Surgery
PROC: 8E0YXBF Computer Assisted Procedure of Lower Extremity, With Fluoroscopy (ICD-10-PCS; 2021-07-25)
PROC: 0QS606Z Reposition Right Upper Femur with Intramedullary Internal Fixation Device, Open Approach (ICD-10-PCS; principal; 2021-07-25 11:05)
DX: S72.141A Displaced intertrochanteric fracture of right femur, initial encounter for closed fracture (principal); R00.1 Bradycardia, unspecified; E03.9 Hypothyroidism, unspecified; Z20.822 Contact with and (suspected) exposure to COVID-19; G62.9 Polyneuropathy, unspecified; M19.90 Unspecified osteoarthritis, unspecified site; I12.9 Hypertensive chronic kidney disease with stage 1 through stage 4 chronic kidney disease, or unspecified chronic kidney disease; N18.30 Chronic kidney disease, stage 3 unspecified; R00.0 Tachycardia, unspecified; I95.9 Hypotension, unspecified; T44.7X5A Adverse effect of beta-adrenoreceptor antagonists, initial encounter; W01.0XXA Fall on same level from slipping, tripping and stumbling without subsequent striking against object, initial encounter; Z79.890 Hormone replacement therapy; Z79.899 Other long term (current) drug therapy; X58.XXXA Exposure to other specified factors, initial encounter
CPT/HCPCS: 71045; 73502; 80048; 80053; 83735; 84439; 84443; 85025; 85610; 85730; 87635; 93005; 96374; 96376; 99285

== ENCOUNTER 2021-10-04 09:00 | Inpatient (IN) | payer MEDICARE ==
[2021-10-04] MEDS ORDERED: MORPHINE SULFATE 4 MG/ML SYRINGE IVP STA ×2 (09:28→11:42)
[2021-10-04 10:36] LABS: Basophils % (A) 0 %; Eosinophils # (A) 0.1 k/uL (0-0.7); Eosinophils % (A) 1 %; HGB 10.5 gm/dL (11.4-16.0); Lymphocytes # (A) 1.2 k/uL (1.0-4.8); Lymphocytes % (A) 11 %; MCH 30.2 pg (25.0-35.0); Mean Platelet Volume 9.4; Monocytes # (A) 0.4 k/uL (0-1.0); Monocytes % (A) 4 %; Neutrophils # (A) 8.8 k/uL (1.3-7.7); Neutrophils % (A) 83 %; Platelet Count 195 k/uL (150-450); RBC 3.49 m/uL (3.80-5.40); RDW 14.7 % (11.5-15.5); WBC 10.6 k/uL (3.8-10.6)
[2021-10-04 10:36] LABS: Potassium 4.4 mmol/L (3.5-5.1)
[2021-10-04 10:37] LABS: MCV 94.4 fL (80.0-100.0)
[2021-10-04 11:12] LABS: Partial Thromboplastin Time 19.6 sec (22.0-30.0)
--- NOTE | 2021-10-04 11:29 | XR ---
Left femur and AP pelvis HISTORY: Trauma and pain Frontal view of the pelvis submitted as well as frontal and lateral views the left femur on 4 additio nal images There is a comminuted intertrochanteric displaced proximal left femoral fracture. Resulting varus def ormity is present. No evident dislocation. Postop changes are noted to the right proximal femur. Vert ebroplasty changes are noted in the lower lumbar spine, there is associated degenerative disc change. Possible vascular calcifications within the pelvis. Anastomotic vascular calcifications also noted a long the soft tissues of the left lower extremity. Osteophytic change noted in the left knee. Graph impression: Proximal left femoral fracture as described
--- NOTE | 2021-10-04 11:35 | XR ---
EXAMINATION TYPE: XR chest 1V portable DATE OF EXAM: 10/04/2021 COMPARISON: Chest x-ray 07/24/2021 HISTORY: Preop TECHNIQUE: Single frontal view of the chest is obtained. FINDINGS: There is no focal air space opacity, pleural effusion, or pneumothorax seen. Linear probab le atelectatic changes or thickening of fissures are present in the mid lungs, probable basilar atele ctatic change on the left. The aorta is dense. The cardiac silhouette size is within normal limits. The osseous structures are intact. IMPRESSION: Minimal atelectatic changes.
[2021-10-04] MEDS ORDERED: SODIUM CHLORIDE 0.9% 1,000 ML IV STA (11:42)
[2021-10-04] MEDS ORDERED: NALOXONE 0.4 MG/ML 1 ML VIAL IV PRN (12:11)
[2021-10-04] MEDS ORDERED: ONDANSETRON 4 MG/2 ML VIAL IVP PRN (12:11)
[2021-10-04] MEDS ORDERED: BACLOFEN 10 MG TAB PO PRN (12:13)
--- NOTE | 2021-10-04 12:15 | ED ---
General Adult HPI - General Chief complaint: Extremity Injury, Lower Stated complaint: fall Time Seen by Provider: 10/04/21 09:16 Source: patient, EMS, RN notes reviewed, old records reviewed Mode of arrival: EMS Limitations: physical limitation - History of Present Illness Initial comments: Patient is a 80-year-old female with past medical history remarkable for recent right femur fracture status post surgical repair by Dr. Phelan presents as department after mechanical trip and fall at home. Patient states she was walking when she tripped over the rug, and fell somewhat backwards onto her left hip. Denies any head. Denies loss consciousness. Denies hitting her back. She states she landed only on her left hip. Currently has pain in her left hip. Was not ambulatory was able to contact EMS. Presents for further evaluation at this time. Received pain medications and route. Is not on blood thinners. Denies LOC. Denies spinal tenderness. Denies chest pain, shortness breath, abdominal pain, nausea, vomiting. Denies any numbness in the left lower extremity. Week secondary to pain in her left hip and thigh. Presents for furt her evaluation at this time. - Related Data Home Medications Medication Instructions Recorded Confirmed Baclofen 10 mg PO BID PRN 07/24/21 10/04/21 HYDROcodone/APAP 5-325MG [[place] 1 tab PO DAILY PRN 07/24/21 10/04/21 5-325] Levothyroxine Sodium [Synthroid] 150 mcg PO DAILY 07/24/21 10/04/21 Metoprolol Tartrate [Lopressor] 50 mg PO BID 10/04/21 10/04/21 Naloxone HCl 4 mg NS DIRECTED PRN 10/04/21 10/04/21 Allergies Allergy/AdvReac Type Severity Reaction Status Date / Time No Known Allergies Allergy Verified 10/04/21 09:31 Review of Systems ROS Statement: Those systems with pertinent positive or pertinent negative responses have been documented in the HPI. Review of Systems: CONST: Denies fever EYES: Denies blurry vision ENT: Denies nasal congestion C/V: Denies Chest pain RESP: Denies shortness of breath GI: Denies abdominal pain : Denies dysuria SKIN: Denies rash. MSK: Endorses left hip pain NEURO: Denies headache ROS Other: All systems not noted in ROS Statement are negative. Past Medical History Additional Past Medical History / Comment(s): arthritis History of Any Multi-Drug Resistant Organisms: None Reported Past Surgical History: Back Surgery Past Psychological History: No Psychological Hx Reported Smoking Status: Never smoker Past Alcohol Use History: Occasional Past Drug Use History: None Reported General Exam - General Exam Comments Initial Comments: General: Appears in no acute distress. HEAD: Normal with no signs of head trauma. EYES: PERRLA, EOMI, conjunctiva normal, no discharge. ENT: Hearing grossly intact, normal oropharynx. RESPIRATORY: Clear breath sounds bilaterally. No wheezes, rales, or rhonchi. C/V: Regular rate and rhythm. S1 and S2 auscultated, no edema, peripheral pulses 2+ and intact throughout ABD: Abd is soft, nontender, nondistended EXT: Decreased range of motion left hip. Tenderness palpation over the left hip and proximal femur. Obvious deformity of the left femur. Left lower extremity is externally rotated and shortened. Patient is comfortable in his current position. Neurovascularly she is intact distally to the suspected hip fracture. No midline spinal tenderness to palpation. Pelvis is stable. SKIN: No rashes or lesions observed on exposed skin. No bruising over the left hip. NEURO: Alert and oriented 4. No focal sensory deficits. Left lower extremity weakness secondary to pain and left hip. Limitations: physical limitation Course Vital Signs 10/04/21 10/04/21 10/04/21 09:06 10:19 11:39 Temperature 97.6 F Pulse Rate 71 84 70 Respiratory 18 18 18 Rate Blood Pressure 131/63 115/76 109/61 O2 Sat by Pulse 100 96 97 Oximetry Medical Decision Making - Medical Decision Making Based on the patient's presentation and physical exam, I'm concerned for left hip fracture. We will obtain basic presurgery laboratory studies as well as a x-ray of the left hip and pelvis. Patient was in agreement this plan. She will receive pain medications as well. Laboratory studies are remarkable for chronic microcytic anemia with a hemoglobin of 10.5 which appears stable. Patient is a mild [place] eye with a creatinine of 1.29. Remainder the labs are unremarkable. X-ray reveals a left comminuted intertrochanteric femoral fracture. I did the patient. Sutton catheter will be placed. Patient remains neurovascularly intact in the left lower extremity and is comfortable as is. I do not believe that any reduction attempts are necessary at this time. We'll continue to monitor. We'll continue neurovascular checks. I updated the patient and explained she'll require surgery. She was in agreement this plan. I contacted the patient's orthopedic surgeon, Dr. Cantu sent and spoke with the PA bonding machine operator. They already arranged for surgery for the patient tomorrow. Patient will be admitted to Dr. Phelan. Consult placed to medicine, Dr. agrawal of [facility] for medical clearance. I spoke with him and he was in agreement this plan. Patient was therefore admitted in stable condition. Nothing by mouth after midnight. - Lab Data Result diagrams: 10/04/21 10:08 10/04/21 10:10 Lab Results 10/04/21 10/04/21 10/04/21 Range/Units 10:08 10:10 10:10 WBC 10.6 (3.8-10.6) k/uL RBC 3.49 L (3.80-5.40) m/uL Hgb 10.5 L (11.4-16.0) gm/dL Hct 33.0 L (34.0-46.0) % MCV 94.4 D (80.0-100.0) fL MCH 30.2 (25.0-35.0) pg MCHC 32.0 (31.0-37.0) g/dL RDW 14.7 (11.5-15.5) % Plt Count 195 (150-450) k/uL MPV 9.4 Neutrophils % 83 % Lymphocytes % 11 % Monocytes % 4 % Eosinophils % 1 % Basophils % 0 % Neutrophils # 8.8 H (1.3-7.7) k/uL Lymphocytes # 1.2 (1.0-4.8) k/uL Monocytes # 0.4 (0-1.0) k/uL Eosinophils # 0.1 (0-0.7) k/uL Basophils # 0.0 (0-0.2) k/uL PT 11.0 (9.0-12.0) sec INR 1.0 (<1.2) APTT 19.6 L (22.0-30.0) sec Sodium 138 (137-145) mmol/L Potassium 4.4 (3.5-5.1) mmol/L Chloride 106 (98-107) mmol/L Carbon Dioxide 21 L (22-30) mmol/L Anion Gap 11 mmol/L BUN 40 H (7-17) mg/dL Creatinine 1.29 H (0.52-1.04) mg/dL Est GFR (CKD-EPI)AfAm 46 (>60 ml/min/1.73 sqM) Est GFR (CKD-EPI)NonAf 40 (>60 ml/min/1.73 sqM) Glucose 105 H (74-99) mg/dL Calcium 9.0 (8.4-10.2) mg/dL Disposition Clinical Impression: Femur fracture, left Disposition: ADMITTED IP TO THIS HOSP Condition: Stable Time of Disposition: 12:00
--- NOTE | 2021-10-04 13:07 | P.HPOR ---
History of Present Illness H&P Date: 10/04/21 Chief Complaint: Left hip pain History of Presenting Illness Patient is a 80 yo female presented after ffs at home with left hip pain. She states she tripped over a new rug placed in front of her bedroom and landed on left hip with immediate pain and inability to ambulate after. EMS brought her in. Denies BHT. No LOC. States no other injury. Denies numbness/tingling. States no other issues at this time. She has a hx of hypothyroid. Review of Systems Pertinent positives and negatives as discussed in HPI, a complete review of systems was performed and all other systems are negative. Physical Examination AOX3 NAD VSS, afeb Non septic appearing TTP of the left hip region over GT and groin. No other TTP of any major joints FROM of all major joints w/o pain except pain with log roll of left hip 5/5 motor all except HF and KE left due to fracture. All others full. SILT L2-S1 and C5-T1 2/4 DP/PT Rad/U pulses Compartments soft and compressive No skin lesions or breaks CNII-XII grossly intact No pathological reflexes DTR 2/4 Assessment and Plan -immobilization required, bedrest -maintain abbott catheter -pain management, ice prn -Npo at [place] -Left hip IM nail boarded for 0800 10/05/21 I reviewed and discussed this case with my attending Dr. Phelan, whom has reviewed this chart and films and is in agreement with assessment and plan of care as outlined above. I have personally seen and examined the patient, performed the documentation and the assessment and plan as written. Number of minutes spent on the visit: 30m. Past Medical History Additional Past Medical History / Comment(s): arthritis History of Any Multi-Drug Resistant Organisms: None Reported Past Surgical History: Back Surgery Past Psychological History: No Psychological Hx Reported Smoking Status: Never smoker Past Alcohol Use History: Occasional Past Drug Use History: None Reported Medications and Allergies Home Medications Medication Instructions Recorded Confirmed Type Baclofen 10 mg PO BID PRN 07/24/21 10/04/21 History HYDROcodone/APAP 5-325MG [[place] 1 tab PO DAILY PRN 07/24/21 10/04/21 History 5-325] Levothyroxine Sodium [Synthroid] 150 mcg PO DAILY 07/24/21 10/04/21 History Metoprolol Tartrate [Lopressor] 50 mg PO BID 10/04/21 10/04/21 History Naloxone HCl 4 mg NS DIRECTED PRN 10/04/21 10/04/21 History Allergies Allergy/AdvReac Type Severity Reaction Status Date / Time No Known Allergies Allergy Verified 10/04/21 09:31 Results - Labs Labs: Abnormal Lab Results - Last 24 Hours (Table) 10/04/21 10/04/21 10/04/21 Range/Units 10:08 10:10 10:10 RBC 3.49 L (3.80-5.40) m/uL Hgb 10.5 L (11.4-16.0) gm/dL Hct 33.0 L (34.0-46.0) % Neutrophils # 8.8 H (1.3-7.7) k/uL APTT 19.6 L (22.0-30.0) sec Carbon Dioxide 21 L (22-30) mmol/L BUN 40 H (7-17) mg/dL Creatinine 1.29 H (0.52-1.04) mg/dL Glucose 105 H (74-99) mg/dL H & H 10/04/21 Range/Units 10:08 Hgb 10.5 L (11.4-16.0) gm/dL Hct 33.0 L (34.0-46.0) % Coagulation 10/04/21 Range/Units 10:10 INR 1.0 (<1.2) Result Diagrams: 10/04/21 10:08 10/04/21 10:10
[2021-10-04] MEDS: SODIUM CHLORIDE 0.9% 1,000 ML IV SCH ×2 (14:01→23:23)
[2021-10-04 14:06] LABS: Appearance,Urine Clear (Clear); Bilirubin,Urine Negative (Negative); Blood,Urine Negative (Negative); Color,Urine Light Yellow; Glucose,Urine (UA) Negative (Negative); Ketones,Urine Trace (Negative); Leukocyte Esterase,Urine Negative (Negative); Nitrite,Urine Negative (Negative); Protein,Urine Negative (Negative); Specific Gravity,Urine 1.015 (1.001-1.035); Urobilinogen,Urine <2.0 mg/dL (<2.0)
--- NOTE | 2021-10-04 18:58 | P.CONS ---
History of Present Illness - History of Present Illness This is a pleasant 80 years old female with past medical history of arthritis, hypertension and hyperthyroidism. Also she has history of degenerative disc disease and she underwent right hip arthroplasty about 2 months ago this facility. This time she was walking her dog when she slipped , where she could not see the right, her shows slipped and she fell, as she describes. and she fell on the wall and hit her left leg and thigh. After that she was suffering from significant pain and she was brought to the hospital. Patient denies any trauma. Patient denies dizziness, no loss of consciousness, no chest pain or tightness, no diarrhea or vomiting, no dysuria or urgency, she has little lightheaded but no weakness or numbness. She denies smoking, alcohol or illicit drugs She has a Sutton catheter placement emergency room Pelvis x-ray: There is comminuted fracture of the left intertrochanteric displaced proximal left femoral fracture. Vitals are stable Labs reviewed showing mild anemia at 10.5. INR 1.0. Creatinine 1.2 which is close to baseline, urine analysis is negative Chest x-ray: Minimal atelectatic changes Review of Systems Review of systems CONSTITUTIONAL: No fever, no malaise, no fatigue. HEENT: No recent visual problems or hearing problems. Denied any sore throat. CARDIOVASCULAR: No orthopnea, PND, no palpitations, no syncope. PULMONARY: No shortness of breath, no cough, no hemoptysis. GASTROINTESTINAL: No diarrhea, no nausea, no vomiting, no abdominal pain. Normoactive bowel sounds. NEUROLOGICAL: No headaches, no weakness, no numbness. HEMATOLOGICAL: Denies any bleeding or petechiae. GENITOURINARY: Denies any burning micturition, frequency, or urgency. MUSCULOSKELETAL/RHEUMATOLOGICAL: Denies any joint pain, swelling, or any muscle pain. Except was mentioned above ENDOCRINE: Denies any polyuria or polydipsia. Past Medical History Additional Past Medical History / Comment(s): arthritis History of Any Multi-Drug Resistant Organisms: None Reported Past Surgical History: Back Surgery Past Psychological History: No Psychological Hx Reported Smoking Status: Never smoker Past Alcohol Use History: Occasional Past Drug Use History: None Reported - Past Family History Father Family Medical History: No Reported History Additional Family Medical History / Comment(s): father was healthy Mother Family Medical History: Unable to Obtain Additional Family Medical History / Comment(s): Pt unable to recall mother's medical history Medications and Allergies Home Medications Medication Instructions Recorded Confirmed Type Baclofen 10 mg PO BID PRN 07/24/21 10/04/21 History HYDROcodone/APAP 5-325MG [[place] 1 tab PO DAILY PRN 07/24/21 10/04/21 History 5-325] Levothyroxine Sodium [Synthroid] 150 mcg PO DAILY 07/24/21 10/04/21 History Metoprolol Tartrate [Lopressor] 50 mg PO BID 10/04/21 10/04/21 History Naloxone HCl 4 mg NS DIRECTED PRN 10/04/21 10/04/21 History Allergies Allergy/AdvReac Type Severity Reaction Status Date / Time No Known Allergies Allergy Verified 10/04/21 09:31 Physical Exam Vitals: Vital Signs Temp Pulse Resp BP Pulse Ox 10/04/21 13:51 85 18 122/61 100 10/04/21 11:39 70 18 109/61 97 10/04/21 10:19 84 18 115/76 96 10/04/21 09:06 97.6 F 71 18 131/63 100 Intake and Output 10/04/21 10/04/21 10/04/21 06:59 14:59 22:59 Output Total 100 Balance -100 Output: Urine 100 Straight 100 Other: Weight 58.967 kg GENERAL: The patient is alert and oriented x3, not in any acute distress. Well developed, well nourished. HEENT: Pupils are round and equally reacting to light. EOMI. No scleral icterus. No conjunctival pallor. Normocephalic, atraumatic. No pharyngeal erythema. No thyromegaly. -CARDIOVASCULAR: S1 and S2 present. Systolic parasternal murmurs, rubs, or gallops. PULMONARY: Chest is clear to auscultation, no wheezing or crackles. ABDOMEN: Soft, nontender, nondistended, normoactive bowel sounds. No palpable organomegaly. MUSCULOSKELETAL: No joint swelling or deformity. -EXTREMITIES: No cyanosis, clubbing, or pedal edema. Left thigh is swollen and tender NEUROLOGICAL: Gross neurological examination did not reveal any focal deficits. SKIN: No rashes. no petechiae. Results CBC & Chem 7: 10/04/21 10:08 10/04/21 10:10 Labs: Abnormal Lab Results - Last 24 Hours (Table) 10/04/21 10/04/21 10/04/21 Range/Units 10:08 10:10 10:10 RBC 3.49 L (3.80-5.40) m/uL Hgb 10.5 L (11.4-16.0) gm/dL Hct 33.0 L (34.0-46.0) % Neutrophils # 8.8 H (1.3-7.7) k/uL APTT 19.6 L (22.0-30.0) sec Carbon Dioxide 21 L (22-30) mmol/L BUN 40 H (7-17) mg/dL Creatinine 1.29 H (0.52-1.04) mg/dL Glucose 105 H (74-99) mg/dL Urine Ketones (Negative) 10/04/21 Range/Units 13:55 RBC (3.80-5.40) m/uL Hgb (11.4-16.0) gm/dL Hct (34.0-46.0) % Neutrophils # (1.3-7.7) k/uL APTT (22.0-30.0) sec Carbon Dioxide (22-30) mmol/L BUN (7-17) mg/dL Creatinine (0.52-1.04) mg/dL Glucose (74-99) mg/dL Urine Ketones Trace H (Negative) Assessment and Plan Assessment: Proximal left humeral fracture secondary to trauma Fall after patient tripped without syncope Systolic murmur Hypertension Hypothyroidism History of degenerative disc disease status post right hip arthroplasty Plan: this is a pleasant 80 years old female with left femoral comminuted fracture after a fall Orthopedic team on the case of the planned for surgical intervention to repair the fracture Patient has some risk from surgery but there is no medical contraindication and patient can proceed with surgery Pain management Ask for cardiology consult and echo to assess for systolic murmur Labs and medication were reviewed.. Continue same treatment. Continue with symptomatic treatment. Resume home medication. Monitor lytes and vitals. DVT and GI prophylaxis. Further recommendations as per clinical course of the patient DVT prophylaxis: Subcutaneous heparin GI Prophylaxis: Pepcid Prognosis is guarded Thank you for consulting us and we will follow up with you
[2021-10-04] MEDS: METOPROLOL TARTRATE 50 MG TAB PO SCH (20:57)
[2021-10-04] MEDS: HEPARIN SODIUM,PORCINE/PF 5,000 UNIT/0.5 ML SYRINGE SQ SCH (20:58)
[2021-10-04] MEDS ORDERED: FAMOTIDINE 20 MG/2 ML VIAL IV SCH (21:00)
[2021-10-05] MEDS: LEVOTHYROXINE 75 MCG TAB PO SCH (05:53)
--- NOTE | 2021-10-05 08:13 | P.PN ---
Progress Note - Text Progress Note Date: 10/05/21 Patient seen and examined, I reviewed the note, discussed the case with the LINUX SERVER ADMINISTRATOR first hand and agree with the assessment and plan of Maximus Veras NP. Please see my notes below for any additional recommendations. Orthopedic Surgery Risk Review Monica Sierra is a 80 yo female presenting for evaluation of sudden onset Left hip pain, inability to ambulate after trip and fall on a rug. It was my pleasure to have seen and examined Monica Sierra . In our visit today we have had a chance to go over subjective complaints, physical examination findings and treatments including the natural course history without intervention and various interventional options. Her imaging demonstrates left hip IT with subtrochanteric extension. On physical exam, Monica Sierra demonstrates pain with motion of left leg, which is NV intact at this time. I have explained to the patient that this fracture needs stabilization. Based on the patients imaging, physical exam, and the rapid progression and disabling nature of her symptoms, at this time I recommend surgery in the form or a: Left hip IMN fixation I discussed the risk and benefits of this procedure at length with Monica. Questions were invited and answered, and the patient wishes to proceed as outlined below. Currently, I am recommendin. Left Hip intramedullary nail fixation 2. Review of surgical risks and benefits as well as an educational packet on the proposed surgical procedure. Risks: All surgical procedures come with inherent risks, including those related to positioning, anesthesia, intraoperative findings, and postoperative complications. It is important to understand that surgery does not come with any guarantee of a successful outcome as complications and adverse events are always possible. The patient was given a handout discussing the surgical procedure and risks associated with the intervention, both of which were discussed with the patient. These risks include but are not limited to the following: - Experiencing same, different or even worse symptoms compared to before surgery. - Requiring further surgery or other forms of treatment presently or at some time in the future . - On an extreme but fortunately relatively rare basis severe complication such as blindness, stroke, heart attack, temporary and/or permanent nerve injury, paralysis, coma, or may occur, sometimes without known explanation. - Surgical complications may include but are not limited to risk of infection, fluid accumulation in the surgical dissection site, including a seroma or hematoma, that requires additional surgery, wound drainage, bleeding, new numbness or weakness, vision changes/loss, spinal fluid leakage, non-healing and/or infected incision, headaches, difficulty or inability to swallow, hoarseness, hemopneumothorax, pneumothorax, injury to nerves, spinal cord, blood vessels, lymphatics or other vital organs (i.e., bowel injury, injury to the great vessels); heterotopic bone formation; complications related to the hardware such as screws, rods, including misplaced hardware, device failure, hardware fracture/breakage, or hardware loosening; retained surgical instrumentations or devices and the need for further surgery. - Medical risks of the planned surgery include but are not limited to generalized Infections to the whole body or local areas outside of the surgical site (sepsis), heart attack, bleeding, anaphylaxis, meningitis, seizure, epilepsy, hearing loss, burn lombardo, laceration of the head or other areas of the body, bruising, hypersensitivity of the skin, bladder over distension; allergic reaction; shoulder injury related to positioning; fat, blood and air clots to other areas of the body like heart, lungs, brain; failure of internal organs such as lungs, kidneys, liver and excessive bleeding. If blood transfusions are necessary, note that transfusions may cause intolerance reactions such as anaphylaxis or other complex reactions. Despite best efforts, the results of surgery might not heal in terms of bone, soft tissues such as skin, fascia, ligaments, and joints. [facility] has multiple operating rooms with single and overlapping rooms running daily. They currently function under the required guidelines as produced by the Senate [employer] Committee with regards to the overlapping rooms and will continue to comply with changes to this policy as they occur. The requirements include and are complied with as follows: (1) the critical portions of the overlapping rooms will not occur at the same time, (2) the attending physician will be physically present during the critical portions of the procedure and immediately available during the entire case, and (3) a back-up attending is designated should the primary attending not be immediately available. The patient has had a chance to review all the listed information, has been given print outs detailing this information, and has had all his/her questions answered to their satisfaction. It was my pleasure to have seen and examined Monica Sierra . In our visit today we have had a chance to go over my understanding of our patient's current condition, the natural course history without intervention and various interventional options. Questions were invited and answered, and the patient wishes to proceed as outlined above. I have seen and examined the patient for 25 minutes and we have spent more than 50% of the time in repeat and detailed counseling about the patient's condition, its natural course history with out and as much as can be predicted with surgery and re-review of various surgical treatment options. In conclusion, Monica Sierra requested we proceed with the above suggested surgery and are willing to accept risks and limitations of the suggested surgery as nature of the disease process and our best attempts at treatment for the condition. Thank you again for allowing us to be part of your patient's care. Please don't hesitate to contact me if you have any further questions. Signed and authenticated by: [facility] [address], [address] [address]
[2021-10-05] MEDS: HEPARIN SODIUM,PORCINE/PF 5,000 UNIT/0.5 ML SYRINGE SQ SCH ×2 (08:53→20:47)
[2021-10-05] MEDS ORDERED: MIDAZOLAM 2 MG/2 ML VIAL ONE (08:57)
[2021-10-05] MEDS ORDERED: PHENYLEPHRINE-0.9% NACL SYG 1,000 MCG/10 ML SYRINGE ONE (08:57)
[2021-10-05] MEDS ORDERED: KETAMINE 10 MG/ML 20 ML VIAL ONE (08:57)
[2021-10-05] MEDS ORDERED: PROPOFOL 10 MG/ML 20 ML VIAL IV ONE (08:57)
[2021-10-05] MEDS ORDERED: LACTATED RINGERS 1,000 ML IV ONE ×3 (09:00→10:29)
[2021-10-05 09:17] LABS: African American GFR (CKD) 50.3 (60.0-200.0); Anion Gap 9.5 mmol/L (10.00-18.00); BUN/Creat Ratio 24.96 Ratio (12.00-20.00); Blood Urea Nitrogen 29.7 mg/dL (9.0-27.0); Carbon Dioxide 22.6 mmol/L (20.0-27.5); Non-African American GFR(CKD) 43.4 (60.0-200.0); Potassium 4.8 mmol/L (3.5-5.5)
[2021-10-05 09:21] LABS: Basophils # (A) 0.02 X 10*3/uL (0.00-0.10); Basophils % (A) 0.4 %; Eosinophils # (A) 0.02 X 10*3/uL (0.04-0.35); Eosinophils % (A) 0.4 %; HCT 28.4 % (37.2-46.3); HGB 8.8 g/dL (12.0-15.0); Immature Grans, Automated 0.2 %; Lymphocytes # (A) 0.91 X 10*3/uL (0.90-5.00); Lymphocytes % (A) 18.5 %; MCH 29.4 pg (27.0-32.0); Mean Platelet Volume 12.4 fL (9.5-12.2); Monocytes # (A) 0.55 X 10*3/uL (0.20-1.00); Monocytes % (A) 11.2 %; NRBC Per 100 WBC 0 /100 WBCS (0.0-0.0); Neutrophils # (A) 3.42 X 10*3/uL (1.80-7.70); Neutrophils % (A) 69.3 %; Platelet Count 161 X 10*3/uL (140-440); RBC 2.99 X 10*6/uL (4.10-5.20); RDW 14.5 % (11.5-14.5); WBC 4.93 X 10*3/uL (4.50-10.00)
[2021-10-05] MEDS ORDERED: SODIUM CHLORIDE 0.9% 100 ML with ceFAZolin 2,000 MG IV ONE ×2 (09:33)
[2021-10-05] MEDS ORDERED: ceFAZolin 1,000 MG in SODIUM CHLORIDE 0.9% 1,000 ML IRRIGATION ONE (09:40)
--- NOTE | 2021-10-05 10:41 | P.OP ---
Date of Procedure: 10/05/21 Preoperative Diagnosis: 1. left intertrochanteric hip fracture with subtrochanteric extension 2. s/p ffs Postoperative Diagnosis: 1. left intertrochanteric hip fracture with subtrochanteric extension, closed, comminuted 2. s/p ffs Procedure(s) Performed: 1. Left hip open reduction and intramedullary nail fixation Implants: Meyers and nephew intertan nail 13 x 380 x 130 deg 100 mm lag 95 mm compression 40 mm distal locking Anesthesia: POOL Surgeon: López Phelan Patients Transporter #1: Eda Stroud (was present for entire case and assisted in all aspects of the case from positioning to closing and dresstgin placement) Estimated Blood Loss (ml): 200 IV fluids (ml): 900 Urine output (ml): 100 Pathology: none sent Condition: stable Disposition: PACU Indications for Procedure: 80 yo female presented after FFS at home after tripping over a rug. She was brought via EMS to ED and found to have left hip fracture. She was admitted cleared by medicine for surgical intervention today. She was seen and evaluated in PACU. She understands the proceedure, she just had her right hip fixed in July. She is ready and willing to proceed. Description of Procedure: The patient was seen and examined in the preoperative area. All preoperative protocols were followed. Informed consent was obtained risks and benefits of the procedure were discussed at length. Risks including bleeding infection damage to the surrounding tissue and risk of reoperation were discussed with the patient. Risk of anesthesia up to and including was a discussed with the patient. These are outlined in the risk reviewed. They were willing to accept these risks and all of the risks of surgery. The patient was given a weight- based dose of antibiotics in the form of 2 g Ancef. The patient was seen and evaluated by the anesthesia team who deemed them fit for surgery. The site was marked, the patient was willing to proceed with the procedure. The patient was transferred to the operative suite by the Department of anesthesia. There were then drifted off to sleep by the department of anesthesia and spinal with sedation anesthesia was used. Once adequate anesthesia had been obtained the patient was carefully transferred to the operative bed. All bony prominences were padded accordingly. SCDs were placed on the nonoperative lower extremities. Arms were well padded. patient was placed on a hand table and left leg was placed in the Ida boot and secured to the table the right leg was well padded and placed in a well leg dyer and secured. The patient was secured to the table with tape C strap. Preoperative briefing was done with the operative team and everyone was ready for the procedure to start. The patients Left leg was then prepped and draped in the normal sterile fashion. Timeout was then performed and all parties in agreement with the procedure to be performed. fluoroscopic guidance used to jeferson an incision to centers proximal to the tip of the greater trochanter blunt dissection taken down to the tibial greater trochanter awl was then positioned in AP and lateral and advanced into the canal. Ball-tipped guidewire was then advanced through this into the distal part of the femur just above the superior pole patella this was then measured at 380 mm. We then performed a reduction using traction and external rotation. A ball tip pusher was then used to reduce the neck as this was a comminuted portion so small skin incision was made anteriorly and the ball tip was then placed on the neck for reduction. Once the nail was in place the jig was placed for the leg screw skin incision was made and blunt dissection taken down to the femur the jig was then snapped into position wire was then placed center center within the femoral neck on AP and lateral and within 10 mm of subchondral bone on AP and lateral. This was then measured at 100 mm. We then drilled for a 95 mm compression screw followed by drilling for 100 mm lag screw. Lag screws then placed and in good position without place compression screw and obtained about 5-7 mm a compression which aligned the fragments very well. Once this was accomplished to lock the nail proximally. Then turned attention distally and obtained perfect circles within the static locking hole drill was then used and we drilled through this static locking hole under perfect circles on fluoroscopic guidance. This was then measured and a 40 mm locking screw was placed. Was confirming good position on AP and lateral. The jig was then removed proximally and final images was taken. The leg was taken through a range of motion fracture fragments were stable. We copiously irrigated wounds normal sterile saline. The deep fascia was closed with 0 Vicryl superficial closed with 2-0 Vicryl and the skin closed with skin jason. It was then cleaned and dressed sterilely with op to foam dressings. The patient was then transferred back to their hospital bed. There were awakened by department of anesthesia having tolerated the procedure very well with no complications. The patient was then transported to the postoperative care unit in stable condition.
[2021-10-05] MEDS ORDERED: HYDROcodone/APAP 5-325MG 1 EACH TAB PO PRN (10:53)
--- NOTE | 2021-10-05 11:03 | P.PN ---
Progress Note - Text Progress Note Date: 10/05/21 Patient arrived in PACU awake and doing well. Patient is talking and is able to follow commands. She is wiggling her toes on LLE and has good pedal pulse. Patient to be transferred back to medical floor once medically stable by PACU staff and Anesthesia.
--- NOTE | 2021-10-05 11:11 | XR ---
EXAMINATION TYPE: XR Hip Complete LT, FL guidance operating room DATE OF EXAM: 10/05/2021 10:43 AM INDICATION: Patient age:Female; 80 years old; Reason for study: Left Hip Fx; PHH. Intraoperative/procedural fluoroscopic services were provided. Total fluoroscopy time 2 minutes 8 sec onds is with a total of 10 submitted images to PACS. Please see the operative/procedural note for fur ther details.
[2021-10-05 12:15] VITALS: BMI 20.9
--- NOTE | 2021-10-05 13:06 | P.CRDCN ---
History of Present Illness Consult date: 10/05/21 Requesting physician: Harsha E Bakari Reason for Consult (text): preop eval Chief complaint: fall, left femur fracture History of present illness: This is a pleasant 80-year-old female patient with past medical history of hypertension and hypothyroidism, status post fall with right femur fracture status post repair in July. 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 Presented this admission after falling at home and sustaining a left femur fracture. 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 Patient was seen and examined resting comfortably in bed postoperatively. Patient is still drowsy from anesthesia. She denies any syncope at home. She tripped and fell. EKG showed normal sinus mechanism without ST-T wave abnormalities. Vital signs have been relatively stable with some postop hypotension. She denies any shortness of breath, dizziness or lightheadedness. She denies any edema, orthopnea or P ND. Past Medical History Past Medical History: Osteoarthritis (OA), Thyroid Disorder Additional Past Medical History / Comment(s): arthritis History of Any Multi-Drug Resistant Organisms: None Reported Past Surgical History: Back Surgery Additional Past Surgical History / Comment(s): 07/2021 R hip IM nail for fracture. Past Anesthesia/Blood Transfusion Reactions: No Reported Reaction Additional Past Anesthesia/Blood Transfusion Reaction / Comment(s): Pt has clausterphobia Past Psychological History: No Psychological Hx Reported Smoking Status: Never smoker Past Alcohol Use History: Occasional Past Drug Use History: None Reported - Past Family History Father Family Medical History: No Reported History Additional Family Medical History / Comment(s): father was healthy Mother Family Medical History: Unable to Obtain Additional Family Medical History / Comment(s): Pt unable to recall mother's medical history Medications and Allergies Home Medications Medication Instructions Recorded Confirmed Type Baclofen 10 mg PO BID PRN 07/24/21 10/04/21 History HYDROcodone/APAP 5-325MG [[place] 1 tab PO DAILY PRN 07/24/21 10/04/21 History 5-325] Levothyroxine Sodium [Synthroid] 150 mcg PO DAILY 07/24/21 10/04/21 History Metoprolol Tartrate [Lopressor] 50 mg PO BID 10/04/21 10/04/21 History Naloxone HCl 4 mg NS DIRECTED PRN 10/04/21 10/04/21 History Allergies Allergy/AdvReac Type Severity Reaction Status Date / Time No Known Allergies Allergy Verified 10/04/21 09:31 Physical Exam Vitals: Vital Signs Temp Pulse Pulse Pulse Pulse Resp BP 10/05/21 11:37 99 16 10/05/21 11:22 79 16 10/05/21 11:07 77 16 10/05/21 10:52 97 F L 80 16 10/05/21 08:10 18 10/05/21 04:35 98.6 F 80 18 10/04/21 20:00 98.2 F 98 18 10/04/21 17:47 84 18 107/68 10/04/21 16:28 89 18 127/74 10/04/21 15:00 74 18 129/71 10/04/21 13:51 85 18 122/61 BP Pulse Ox 10/05/21 11:37 90/54 93 L 10/05/21 11:22 98/57 99 10/05/21 11:07 95/55 94 L 10/05/21 10:52 98/47 98 10/05/21 08:10 10/05/21 04:35 97/61 94 L 10/04/21 20:00 119/67 96 10/04/21 17:47 95 10/04/21 16:28 100 10/04/21 15:00 99 10/04/21 13:51 100 Intake and Output 10/04/21 10/05/21 10/05/21 22:59 06:59 14:59 Intake Total 500 1301 Output Total 500 300 Balance 0 1001 Intake: IV 1301 Intake, IV Titration 500 Amount Sodium Chloride 0.9% 1, 500 000 ml @ 100 mls/hr IV . Q10H [facility] Rx#:[id number] Output: Urine 500 100 Estimated Blood Loss 200 Other: Voiding Method Indwelling Catheter Indwelling Catheter Weight 58.967 kg 58.967 kg PHYSICAL EXAMINATION: This is a 80-year-old female in no apparent distress at the time of my examination. VITAL SIGNS: Blood pressure 90/54, heart rate 99, respirations 60, temp 97F. Patient is 93 % on room air. HEENT: Head is atraumatic, normocephalic. Pupils are equal, round. Sclerae anicteric. Conjunctivae are clear. Mucous membranes of the mouth are moist. Neck is supple. No carotid bruit is heard. CHEST EXAMINATION: Clear to auscultation bilaterally. No wheezes rales or rhonchi. Respirations even and nonlabored. HEART EXAMINATION: Heart regular, positive S1 and S2. No S3. No S4. Grade 2/6 systolic murmur, early to mid peaking. ABDOMEN: Soft, nontender. Bowel sounds are heard. No organomegaly noted. EXTREMITIES: 2+ peripheral pulses with no evidence of peripheral edema and no calf tenderness noted. NEUROLOGIC EXAMINATION: Patient is drowsy and oriented x3. Results 10/05/21 04:47 10/05/21 04:47 CBC 10/05/21 Range/Units 04:47 WBC 4.93 (4.50-10.00) X 10*3/uL RBC 2.99 L (4.10-5.20) X 10*6/uL Hgb 8.8 L (12.0-15.0) g/dL Hct 28.4 L (37.2-46.3) % Plt Count 161 (140-440) X 10*3/uL Comprehensive Metabolic Panel 10/05/21 Range/Units 04:47 Sodium 137 (135-145) mmol/L Potassium 4.8 (3.5-5.5) mmol/L Chloride 105 (96-109) mmol/L Carbon Dioxide 22.6 (20.0-27.5) mmol/L BUN 29.7 H (9.0-27.0) mg/dL Creatinine 1.2 (0.6-1.5) mg/dL Glucose 94 (70-110) mg/dL Calcium 9.0 (8.7-10.3) mg/dL Current Medications Generic Name Dose Route Start Last Admin Trade Name Freq PRN Reason Stop Dose Admin Hydrocodone Bitart/Acetaminophen 1 each 10/05/21 10:53 Hydrocodone/Apap 5-325mg 1 Each Tab PO Q4HR PRN Moderate Pain Hydrocodone Bitart/Acetaminophen 2 each 10/05/21 10:53 Hydrocodone/Apap 5-325mg 1 Each Tab PO Q6HR PRN Severe Pain Baclofen 10 mg 10/04/21 12:13 Baclofen 10 Mg Tab PO BID PRN Pain Famotidine 20 mg 10/05/21 21:00 Famotidine 20 Mg/2 Ml Vial IV HS IRASEMA Heparin Sodium (Porcine) 5,000 unit 10/04/21 21:00 10/05/21 08:53 Heparin Sodium,Porcine/Pf 5,000 Unit/0.5 Ml Syringe SQ Not Given Q12HR [facility] Sodium Chloride 1,000 mls @ 100 mls/hr 10/04/21 12:15 10/04/21 23:23 Saline 0.9% IV Not Given .Q10H [facility] Cefepime HCl 2 gm/ Sodium 100 mls @ 25 mls/hr 10/05/21 16:00 Chloride IVPB Q12H [facility] Protocol Levothyroxine Sodium 150 mcg 10/05/21 06:30 10/05/21 05:53 Levothyroxine 75 Mcg Tab PO 150 mcg DAILY@0630 [facility] Administration Metoprolol Tartrate 50 mg 10/04/21 21:00 10/04/21 20:57 Metoprolol Tartrate 50 Mg Tab PO 50 mg BID IRASEMA Administration Morphine Sulfate 4 mg 10/04/21 12:11 Morphine Sulfate 4 Mg/Ml Syringe IV Q4HR PRN Severe Pain Naloxone HCl 0.2 mg 10/04/21 12:11 Naloxone 0.4 Mg/Ml 1 Ml Vial IV Q2M PRN Opioid Reversal Ondansetron HCl 4 mg 10/04/21 12:11 Ondansetron 4 Mg/2 Ml Vial IVP Q8HR PRN Nausea And Vomiting Intake and Output 10/04/21 10/05/21 10/05/21 22:59 06:59 14:59 Intake Total 500 1301 Output Total 500 300 Balance 0 1001 Intake: IV 1301 Intake, IV Titration 500 Amount Sodium Chloride 0.9% 1, 500 000 ml @ 100 mls/hr IV . Q10H [facility] Rx#:[id number] Output: Urine 500 100 Estimated Blood Loss 200 Other: Voiding Method Indwelling Catheter Indwelling Catheter Weight 58.967 kg 58.967 kg Patient Weight 10/06/21 06:59 Weight 58.967 kg 10/05/21 04:47 10/05/21 04:47 EKG Interpretations (text) Normal sinus rhythm Assessment and Plan Assessment: #1 left Femur fracture, status post fall, status post left hip open reduction and intramedullary nail fixation #2 systolic murmur #3 hypertension Plan: From cardiology's perspective no further cardiac workup is warranted as an inpatient. We will see the patient in the office in about 2 weeks and at that time schedule her for further evaluation in regards to the murmur. At this time we will follow the patient on an as-needed basis. Please do not hesitate to c ontact us with questions. ROOM SERVER note has been reviewed, I agree with a documented findings and plan of care. Patient was seen and examined.
[2021-10-05] MEDS: METOPROLOL TARTRATE 50 MG TAB PO SCH ×2 (13:39→15:55)
[2021-10-05] MEDS: SODIUM CHLORIDE 0.9% 1,000 ML IV SCH ×2 (13:52→20:47)
--- NOTE | 2021-10-05 14:52 | P.PN ---
Subjective Progress Note Date: 10/05/21 This is a 80 year old female who presents with displaced left femoral fracture. Patient underwent cardiac evaluation postoperatively for systolic murmur, outpatient follow up recommended. Patient is evaluated postoperatively and currently denies pain. Left lateral dressing site does appear saturated this was communicated with RN who has ordered to reinforce per primary. Also there was oozing at surgical incision left lateral knee which was reinforced with david bandage per RN. Patient does report some discomfort to right shoulder. She has a skin tear/abrasion to left shoulder which dressing will be ordered. Labs today showing hemoglobin 8.8, BUN 29/7, creatinine 1.2. Urinalysis negative. Patient is afebrile, heart rate 79, blood pressure 90/54, 93% room air. Review of Systems Constitutional: Denied any fatigue denied any fever. Cardio vascular: denied any chest pain, palpitations Gastrointestinal: denied any nausea, vomiting, diarrhea Pulmonary: Denied any shortness of breath cough Neurologic denied any new focal deficits All inpatient medications were reviewed and appropriate changes in these medications as dictated in the interval history and assessment and plan. PHYSICAL EXAMINATION: GENERAL: The patient is alert and oriented x3, not in any acute distress. Well developed, well nourished. HEENT: Pupils are round and equally reacting to light. EOMI. No scleral icterus. No conjunctival pallor. Normocephalic, atraumatic. No pharyngeal erythema. No thyromegaly. CARDIOVASCULAR: S1 and S2 present. No murmurs, rubs, or gallops. PULMONARY: Chest is clear to auscultation, no wheezing or crackles. ABDOMEN: Soft, nontender, nondistended, normoactive bowel sounds. No palpable organomegaly. MUSCULOSKELETAL: Post surgical left hip EXTREMITIES: No cyanosis, clubbing, or pedal edema. NEUROLOGICAL: Gross neurological examination did not reveal any focal deficits. SKIN: No rashes. abrasion left shoulder, david bandage present to left knee, shadowing/saturation to left lateral thigh dressing. Assessment and Plan Assessment: Mechanical fall with subsequent left femur fracture, post surgical repair Mild acute renal injury mostly prerenal, improving Systolic murmur Hypertension Hypothyroidism History of degenerative disc disease status post right hip arthroplasty GI prophylaxis DVT Prophylaxis as per primary Full Code Plan: This is a pleasant 80 years old female with left femoral comminuted fracture after a fall post surgical repair Cardiology will follow up with patient after discharge Continue IV fluids, encourage oral intake Encourage incentive spirometer Dressing ordered for left shoulder abrasion/skin tear PT/OT consultation Repeat CBC/BMP in AM Thank you for consulting us and we will follow up with you The impression and plan of care has been dictated by Kelley Johnson, Nurse Practitioner as directed. Dr. Estevan MD I have performed a history and physical examination and medical decision making of this patient, discussed the same with the dictator, and agree with the dictators assessment and plan as written, documented as a scribe. Based on total visit time, I have performed more than 50% of this visit. Objective - Vital Signs Vital signs: Vital Signs Temp 97 F L 10/05/21 10:52 Pulse 99 10/05/21 11:37 Resp 16 10/05/21 11:37 BP 90/54 10/05/21 11:37 Pulse Ox 93 L 10/05/21 11:37 FiO2 Intake & Output 10/04/21 10/05/21 10/05/21 18:59 06:59 18:59 Intake Total 500 1301 Output Total 100 500 300 Balance -100 0 1001 Weight 58.967 kg 58.967 kg Intake: IV 1301 Intake, IV Titration 500 Amount Sodium Chloride 0.9% 1, 500 000 ml @ 100 mls/hr IV . Q10H [facility] Rx#:[id number] Output: Urine 100 500 100 Straight 100 Estimated Blood Loss 200 Other: Voiding Method Indwelling Catheter Indwelling Catheter - Labs CBC & Chem 7: 10/05/21 04:47 10/05/21 04:47 Labs: Abnormal Lab Results - Last 24 Hours (Table) 10/05/21 10/05/21 Range/Units 04:47 04:47 RBC 2.99 L (4.10-5.20) X 10*6/uL Hgb 8.8 L (12.0-15.0) g/dL Hct 28.4 L (37.2-46.3) % MCHC 31.0 L (32.0-37.0) g/dL MPV 12.4 H (9.5-12.2) fL Eosinophils # 0.02 L (0.04-0.35) X 10*3/uL Anion Gap 9.50 L (10.00-18.00) mmol/L BUN 29.7 H (9.0-27.0) mg/dL Est GFR (CKD-EPI)AfAm 50.3 L (60.0-200.0) Est GFR (CKD-EPI)NonAf 43.4 L (60.0-200.0) BUN/Creatinine Ratio 24.96 H (12.00-20.00) Ratio Assessment and Plan Time with Patient: Less than 30
[2021-10-05] MEDS ORDERED: CEFEPIME 2 GM in SODIUM CHLORIDE 0.9% 100 ML IVPB SCH (16:00)
[2021-10-05] MEDS: MORPHINE SULFATE 4 MG/ML SYRINGE IV PRN ×2 (16:17→21:00)
[2021-10-05] MEDS: CEFEPIME 2 GM in SODIUM CHLORIDE 0.9% 100 ML IVPB SCH (16:18)
[2021-10-05] MEDS: MUPIROCIN 2% OINT 22 GM TUBE TOPICAL SCH (17:35)
[2021-10-05] MEDS: FAMOTIDINE 20 MG/2 ML VIAL IV SCH (20:46)
[2021-10-06] MEDS: CEFEPIME 2 GM in SODIUM CHLORIDE 0.9% 100 ML IVPB SCH ×2 (05:04→16:59)
[2021-10-06] MEDS: MORPHINE SULFATE 4 MG/ML SYRINGE IV PRN ×2 (05:05→17:39)
[2021-10-06] MEDS: LEVOTHYROXINE 75 MCG TAB PO SCH (05:05)
--- NOTE | 2021-10-06 07:21 | XR ---
EXAMINATION TYPE: XR Hip Complete LT DATE OF EXAM: 10/06/2021 6:37 AM INDICATION: Patient age:Female; 80 years old; Reason for study: s/p IM nailing fixation left hip; [facility]. COMPARISON: 10/04/2021 TECHNIQUE: The left hip was examined in the frontal projections FINDINGS: Post fixation changes with intramedullary maykel and screws. Alignment is stable. Hardware moy ears intact. Soft tissue lucencies and skin jason consistent with postsurgical changes. Persistent fracture through the intertrochanteric femur identified. No fractures identified. IMPRESSION: Left hip fixation hardware in place and intact. No new fractures.
[2021-10-06] MEDS: SODIUM CHLORIDE 0.9% 1,000 ML IV SCH (08:43)
[2021-10-06] MEDS: HEPARIN SODIUM,PORCINE/PF 5,000 UNIT/0.5 ML SYRINGE SQ SCH ×2 (08:43→20:56)
[2021-10-06] MEDS: METOPROLOL TARTRATE 50 MG TAB PO SCH ×2 (08:43→20:49)
[2021-10-06] MEDS: MUPIROCIN 2% OINT 22 GM TUBE TOPICAL SCH (08:44)
[2021-10-06 09:37] LABS: Basophils # (A) 0.03 X 10*3/uL (0.00-0.10); Basophils % (A) 0.4 %; Eosinophils # (A) 0 X 10*3/uL (0.04-0.35); Eosinophils % (A) 0 %; HCT 23.1 % (37.2-46.3); HGB 7.3 g/dL (12.0-15.0); Immature Grans, Automated 0.4 %; Lymphocytes # (A) 0.85 X 10*3/uL (0.90-5.00); Lymphocytes % (A) 11.6 %; MCH 29.9 pg (27.0-32.0); MCHC 31.6 g/dL (32.0-37.0); MCV 94.7 fL (80.0-97.0); Mean Platelet Volume 12.4 fL (9.5-12.2); Monocytes % (A) 12.3 %; NRBC Per 100 WBC 0 /100 WBCS (0.0-0.0); Neutrophils # (A) 5.51 X 10*3/uL (1.80-7.70); Neutrophils % (A) 75.3 %; Platelet Count 138 X 10*3/uL (140-440); RBC 2.44 X 10*6/uL (4.10-5.20); RDW 14.5 % (11.5-14.5); WBC 7.32 X 10*3/uL (4.50-10.00)
--- NOTE | 2021-10-06 10:00 | P.PN ---
Subjective Progress Note Date: 10/06/21 Principal diagnosis: 1. Left intertrochanteric hip fracture with subtrochanteric extension 2. s/p ffs Patient seen and examined at bedside. Patient was resting in bed eating her breakfast and tolerating well. Ms. Sierra currently denies pain, states pain is managed on current regimen. She states she is looking forward to working with physical therapy today. Surgical dressings were changed; clean dry and intact. Patient denies any numbness tingling to bilateral lower extremities. She denies any fever/chills, nausea/vomiting, or chest pain. Objective - Vital Signs Vital signs: Vital Signs Temp 97.8 F 10/06/21 05:00 Pulse 100 10/06/21 08:49 Resp 18 10/06/21 05:00 BP 105/69 10/06/21 08:49 Pulse Ox 94 L 10/06/21 05:00 FiO2 Intake & Output 10/05/21 10/06/21 10/06/21 18:59 06:59 18:59 Intake Total 2461 360 Output Total 300 550 Balance 2161 -190 Weight 58.967 kg Intake: IV 1301 Intake, IV Titration 1000 Amount Cefepime 2 gm In Sodium 100 Chloride 0.9% 100 ml @ 25 mls/hr IVPB Q12H [facility] Rx# :[id number] Lactated Ringers 1,000 ml 900 @ 0 mls/hr IV .[facility] Rx#:[id number] Oral 160 360 Output: Urine 100 550 Estimated Blood Loss 200 Other: Voiding Method Indwelling Catheter Indwelling Catheter - Exam Physical Examination General: The patient is awake and alert, in no acute distress Skin: Skin is warm and dry with no obvious rashes or lesions. Hairy patches absent, no dorsal skin dimples, no cafe au lait spots. Surgical Incision to the left hip x3. Abrasion/Skin tear to left shoulder. Eye: Pupils are equal, round and reactive to light, extra-ocular movements are intact; there is normal conjunctiva bilaterally. Neck: The neck is supple, there is no tenderness and ROM intact. Cardiovascular: There is a regular rate and rhythm. No murmur, rub or gallop is appreciated. Respiratory: Lungs are clear to auscultation, respirations are non-labored, breath sounds are equal. Gastrointestinal: Soft, non-distended, non-tender abdomen . Back: There is no tenderness to palpation in the midline, paralumbar, parathoracic or buttocks region. There is no obvious deformity . Musculoskeletal: ROM limited of the Left Hip secondary to pain and stiffness from surgical procedure. Shoulder abduction 5/5, elbow flexors 5/5, wrist dorsiflexors 5/5. finger abductor 5/5, loss prevention manager 5/5, hip flexor 4/5, knee flexor 4/5, ankle dorsiflexor 4/5, ankle plantarflexion 4/5 and extensor hallucis 4/5. Neurological: CN 2-12 intact. There are no obvious motor or sensory deficits. Movement and coordination equal and intact. Sensory exam to light touch intact C5-T1 and intact from L2-S1. Reflexes 2/4 in bilateral upper and lower extremities. Negative Hoffmans, babinski, and clonus signs. Psychiatric: Cooperative, appropriate mood & affect, normal judgment. - Labs CBC & Chem 7: 10/06/21 05:35 10/05/21 04:47 Labs: Abnormal Lab Results - Last 24 Hours (Table) 10/06/21 Range/Units 05:35 RBC 2.44 L (4.10-5.20) X 10*6/uL Hgb 7.3 L (12.0-15.0) g/dL Hct 23.1 L (37.2-46.3) % MCHC 31.6 L (32.0-37.0) g/dL Plt Count 138 L (140-440) X 10*3/uL MPV 12.4 H (9.5-12.2) fL Lymphocytes # 0.85 L (0.90-5.00) X 10*3/uL Eosinophils # 0 L (0.04-0.35) X 10*3/uL Assessment and Plan Assessment: Post-Op day 1 Left hip open reduction and intramedullary nail fixation Plan: Plan: -Appreciate life consultant and team management. -Activity: Ambulate QID, OOB all meals, up and about. Use walker or cane if needed for stability. -Daily PT/OT, increase ambulation strength and balance. -Pain control: Adequate at this time -Meds: reviewed -GI ppx: senna, Miralax -DC abbott when up and about, bedside commode if needed -DVT PPX: OK to restart Heparin tonight -Hygiene: Shower today. Maintain dressing clean and dry. Change dressing daily or as needed. -Encourage IS 10x/hr -Dispo: Anticipate discharge within 48-72hrs *I reviewed and discussed this case with my attending Dr. Phelan, whom has reviewed this chart and films and is in agreement with assessment and plan of care as outlined above. I have personally seen and examined the patient, performed the documentation and the assessment and plan as written. Number of minutes spent on the visit: 20m.
[2021-10-06 12:44] LABS: African American GFR (CKD) 43.6 (60.0-200.0); Anion Gap 12.3 mmol/L (10.00-18.00); BUN/Creat Ratio 23.81 Ratio (12.00-20.00); Blood Urea Nitrogen 31.9 mg/dL (9.0-27.0); Calcium 8.7 mg/dL (8.7-10.3); Non-African American GFR(CKD) 37.6 (60.0-200.0); Potassium 4.8 mmol/L (3.5-5.5)
[2021-10-06] MEDS: BACITRACIN/POLYMYX 500-10,000 UNIT/GM OINT 14 GM TUBE TOPICAL SCH (15:39)
[2021-10-06 16:19] LABS: Basophils # (A) 0.06 X 10*3/uL (0.00-0.10); Basophils % (A) 0.6 %; Eosinophils # (A) 0.02 X 10*3/uL (0.04-0.35); Eosinophils % (A) 0.2 %; HCT 27.9 % (37.2-46.3); HGB 8.8 g/dL (12.0-15.0); Immature Grans, Automated 0.3 %; Lymphocytes # (A) 1.22 X 10*3/uL (0.90-5.00); Lymphocytes % (A) 12.1 %; MCH 30.2 pg (27.0-32.0); MCHC 31.5 g/dL (32.0-37.0); MCV 95.9 fL (80.0-97.0); Mean Platelet Volume 13.1 fL (9.5-12.2); Monocytes # (A) 0.98 X 10*3/uL (0.20-1.00); Monocytes % (A) 9.7 %; NRBC Per 100 WBC 0 /100 WBCS (0.0-0.0); Neutrophils # (A) 7.77 X 10*3/uL (1.80-7.70); Neutrophils % (A) 77.1 %; Platelet Count 102 X 10*3/uL (140-440); RBC 2.91 X 10*6/uL (4.10-5.20); RDW 14.5 % (11.5-14.5); WBC 10.08 X 10*3/uL (4.50-10.00)
[2021-10-06 16:20] LABS: RBC Morphology NORMAL
--- NOTE | 2021-10-06 17:18 | P.PN ---
Subjective Progress Note Date: 10/06/21 This is a 80 year old female who presents with displaced left femoral fracture. Patient underwent cardiac evaluation postoperatively for systolic murmur, outpatient follow up recommended. Patient is evaluated postoperatively and currently denies pain. Left lateral dressing site does appear saturated this was communicated with RN who has ordered to reinforce per primary. Also there was oozing at surgical incision left lateral knee which was reinforced with david bandage per RN. Patient does report some discomfort to right shoulder. She has a skin tear/abrasion to left shoulder which dressing will be ordered. Labs today showing hemoglobin 8.8, BUN 29/7, creatinine 1.2. Urinalysis negative. Patient is afebrile, heart rate 79, blood pressure 90/54, 93% room air. 10/06/2021 Patient is evaluated today resting that she is postoperative day #2 surgical repair for left femur fracture. Labs today showing white count 7.32, hemoglobin 7.3. Her left lateral hip dressing is reinforced. No acute events overnight. Patient will follow-up with cardiology outpatient. She is afebrile, heart rate 102, blood pressure 90/57, 94% room air. Pending PT OT evaluation Review of Systems Constitutional: Denied any fatigue denied any fever. Cardio vascular: denied any chest pain, palpitations Gastrointestinal: denied any nausea, vomiting, diarrhea, passing gas, no BM yet. Pulmonary: Denied any shortness of breath cough Neurologic denied any new focal deficits All inpatient medications were reviewed and appropriate changes in these medications as dictated in the interval history and assessment and plan. PHYSICAL EXAMINATION: GENERAL: The patient is alert and oriented x3, not in any acute distress. Well developed, well nourished. HEENT: Pupils are round and equally reacting to light. EOMI. No scleral icterus. No conjunctival pallor. Normocephalic, atraumatic. No pharyngeal erythema. No thyromegaly. CARDIOVASCULAR: S1 and S2 present. No murmurs, rubs, or gallops. PULMONARY: Chest is clear to auscultation, no wheezing or crackles. ABDOMEN: Soft, nontender, nondistended, normoactive bowel sounds. No palpable organomegaly. MUSCULOSKELETAL: Post surgical left hip EXTREMITIES: No cyanosis, clubbing, or pedal edema. NEUROLOGICAL: Gross neurological examination did not reveal any focal deficits. SKIN: No rashes. abrasion left shoulder, david bandage present to left knee, Reinforced left lateral thigh dressing. Assessment and Plan Assessment: Mechanical fall with subsequent left femur fracture, post surgical repair Mild acute renal injury mostly prerenal, improving Systolic murmur Hypertension Hypothyroidism History of degenerative disc disease status post right hip arthroplasty GI prophylaxis DVT Prophylaxis as per primary Full Code Plan: This is a pleasant 80 years old female with left femoral comminuted fracture after a fall post surgical repair Cardiology will follow up with patient after discharge Continue IV fluids, encourage oral intake Encourage incentive spirometer Dressing ordered for left shoulder abrasion/skin tear PT/OT consultation Repeat CBC/ in AM Thank you for consulting us and we will follow up with you The impression and plan of care has been dictated by Kelley Johnson, Nurse Practitioner as directed. Dr. Estevan MD I have performed a history and physical examination and medical decision making of this patient, discussed the same with the dictator, and agree with the dictators assessment and plan as written, documented as a scribe. Based on total visit time, I have performed more than 50% of this visit. Objective - Vital Signs Vital signs: Vital Signs Temp 97.8 F 10/06/21 05:00 Pulse 100 10/06/21 08:49 Resp 18 10/06/21 08:00 BP 105/69 10/06/21 08:49 Pulse Ox 94 L 10/06/21 05:00 FiO2 Intake & Output 10/05/21 10/06/21 10/06/21 18:59 06:59 18:59 Intake Total 2461 360 Output Total 300 550 Balance 2161 -190 Weight 58.967 kg Intake: IV 1301 Intake, IV Titration 1000 Amount Cefepime 2 gm In Sodium 100 Chloride 0.9% 100 ml @ 25 mls/hr IVPB Q12H [facility] Rx# :[id number] Lactated Ringers 1,000 ml 900 @ 0 mls/hr IV .[facility] Rx#:[id number] Oral 160 360 Output: Urine 100 550 Estimated Blood Loss 200 Other: Voiding Method Indwelling Catheter Indwelling Catheter Indwelling Catheter - Labs CBC & Chem 7: 10/06/21 05:35 10/06/21 05:35 Labs: Abnormal Lab Results - Last 24 Hours (Table) 10/06/21 Range/Units 05:35 RBC 2.44 L (4.10-5.20) X 10*6/uL Hgb 7.3 L (12.0-15.0) g/dL Hct 23.1 L (37.2-46.3) % MCHC 31.6 L (32.0-37.0) g/dL Plt Count 138 L (140-440) X 10*3/uL MPV 12.4 H (9.5-12.2) fL Lymphocytes # 0.85 L (0.90-5.00) X 10*3/uL Eosinophils # 0 L (0.04-0.35) X 10*3/uL Assessment and Plan Time with Patient: Less than 30
[2021-10-06] MEDS: FAMOTIDINE 20 MG/2 ML VIAL IV SCH (20:57)
[2021-10-07] MEDS: CEFEPIME 2 GM in SODIUM CHLORIDE 0.9% 100 ML IVPB SCH ×2 (03:24→16:38)
[2021-10-07] MEDS: HYDROcodone/APAP 5-325MG 1 EACH TAB PO PRN ×2 (03:31→10:37)
[2021-10-07] MEDS: SODIUM CHLORIDE 0.9% 1,000 ML IV SCH ×2 (05:55→18:03)
[2021-10-07] MEDS: LEVOTHYROXINE 75 MCG TAB PO SCH (06:27)
--- NOTE | 2021-10-07 08:09 | P.PN ---
Subjective Progress Note Date: 10/07/21 Principal diagnosis: 1. Left intertrochanteric hip fracture with subtrochanteric extension 2. s/p ffs Patient seen and examined at bedside. Patient was resting in bed with her eyes closed. She states her pain is managed at this time. Encouraged patient to work with PT to ambulate and sit up in chair as tolerated. Patient denies any numbness tingling to bilateral lower extremities. She denies any fever/chills, nausea/vomiting, or chest pain. Objective - Vital Signs Vital signs: Vital Signs Temp 99.1 F 10/07/21 04:20 Pulse 101 H 10/07/21 04:20 Resp 14 10/07/21 04:20 BP 94/53 10/07/21 04:20 Pulse Ox 94 L 10/07/21 04:20 FiO2 Intake & Output 10/06/21 10/07/21 10/07/21 18:59 06:59 18:59 Intake Total 360 Output Total 350 Balance 360 -350 Intake: Oral 360 Output: Urine 350 Other: Voiding Method Indwelling Catheter Indwelling Catheter - Exam Physical Examination General: The patient is awake and alert, in no acute distress Skin: Skin is warm and dry with no obvious rashes or lesions. Hairy patches absent, no dorsal skin dimples, no cafe au lait spots. Surgical Incision to the left hip x3. Abrasion/Skin tear to left shoulder. Eye: Pupils are equal, round and reactive to light, extra-ocular movements are intact; there is normal conjunctiva bilaterally. Neck: The neck is supple, there is no tenderness and ROM intact. Cardiovascular: There is a regular rate and rhythm. No murmur, rub or gallop is appreciated. Respiratory: Lungs are clear to auscultation, respirations are non-labored, breath sounds are equal. Gastrointestinal: Soft, non-distended, non-tender abdomen . Back: There is no tenderness to palpation in the midline, paralumbar, parathoracic or buttocks region. There is no obvious deformity . Musculoskeletal: ROM limited of the Left Hip secondary to pain and stiffness from surgical procedure. Shoulder abduction 5/5, elbow flexors 5/5, wrist dorsiflexors 5/5. finger abductor 5/5, social director 5/5, hip flexor 4/5, knee flexor 4/5, ankle dorsiflexor 4/5, ankle plantarflexion 4/5 and extensor hallucis 4/5. Neurological: CN 2-12 intact. There are no obvious motor or sensory deficits. Movement and coordination equal and intact. Sensory exam to light touch intact C5-T1 and intact from L2-S1. Reflexes 2/4 in bilateral upper and lower extremities. Negative Hoffmans, babinski, and clonus signs. Psychiatric: Cooperative, appropriate mood & affect, normal judgment. - Labs CBC & Chem 7: 10/06/21 05:35 10/06/21 05:35 Labs: Abnormal Lab Results - Last 24 Hours (Table) 10/05/21 10/06/21 10/06/21 Range/Units 14:28 05:35 05:35 WBC 10.08 H (4.50-10.00) X 10*3/uL RBC 2.91 L 2.44 L (4.10-5.20) X 10*6/uL Hgb 8.8 L 7.3 L (12.0-15.0) g/dL Hct 27.9 L 23.1 L (37.2-46.3) % MCHC 31.5 L 31.6 L (32.0-37.0) g/dL Plt Count 102 L 138 L (140-440) X 10*3/uL Plt Count Comment DECREASED A MPV 13.1 H 12.4 H (9.5-12.2) fL Neutrophils # 7.77 H (1.80-7.70) X 10*3/uL Lymphocytes # 0.85 L (0.90-5.00) X 10*3/uL Eosinophils # 0.02 L 0 L (0.04-0.35) X 10*3/uL BUN 31.9 H (9.0-27.0) mg/dL Est GFR (CKD-EPI)AfAm 43.6 L (60.0-200.0) Est GFR (CKD-EPI)NonAf 37.6 L (60.0-200.0) BUN/Creatinine Ratio 23.81 H (12.00-20.00) Ratio Assessment and Plan Assessment: Post-Op day 2 Left hip open reduction and intramedullary nail fixation Plan: Plan: -Appreciate talent consultant and team management. -Activity: Ambulate QID, OOB all meals, up and about. Use walker or cane if needed for stability. -Daily PT/OT, increase ambulation strength and balance. -Pain control: Adequate at this time -Meds: reviewed -GI ppx: senna, Miralax -DC abbott when up and about, bedside commode if needed -DVT PPX: OK to restart Heparin tonight -Hygiene: Shower today. Maintain dressing clean and dry. Change dressing daily or as needed. -Encourage IS 10x/hr -Dispo: Anticipate discharge within 48hrs *I reviewed and discussed this case with my attending Dr. Phelan, whom has reviewed this chart and films and is in agreement with assessment and plan of care as outlined above. I have personally seen and examined the patient, performed the documentation and the assessment and plan as written. Number of minutes spent on the visit: 20m.
[2021-10-07] MEDS: HEPARIN SODIUM,PORCINE/PF 5,000 UNIT/0.5 ML SYRINGE SQ SCH ×2 (08:12→20:19)
[2021-10-07] MEDS: METOPROLOL TARTRATE 50 MG TAB PO SCH ×2 (08:12→10:03)
[2021-10-07] MEDS ORDERED: bisacodyL 10 MG SUPP RECTAL STA (09:58)
[2021-10-07 11:41] LABS: Basophils # (A) 0.03 X 10*3/uL (0.00-0.10); Basophils % (A) 0.4 %; Eosinophils # (A) 0.02 X 10*3/uL (0.04-0.35); Eosinophils % (A) 0.3 %; Immature Grans, Automated 0.4 %; Lymphocytes # (A) 0.96 X 10*3/uL (0.90-5.00); Lymphocytes % (A) 12.5 %; Monocytes % (A) 11.7 %; NRBC Per 100 WBC 0 /100 WBCS (0.0-0.0); Neutrophils # (A) 5.75 X 10*3/uL (1.80-7.70); Neutrophils % (A) 74.7 %
[2021-10-07 11:43] LABS: HCT 19.3 % (37.2-46.3); HGB 6.2 g/dL (12.0-15.0); MCH 29.8 pg (27.0-32.0); MCHC 32.1 g/dL (32.0-37.0); MCV 92.8 fL (80.0-97.0); Mean Platelet Volume 12.3 fL (9.5-12.2); Platelet Count 131 X 10*3/uL (140-440); RBC 2.08 X 10*6/uL (4.10-5.20); RDW 14.7 % (11.5-14.5); WBC 7.69 X 10*3/uL (4.50-10.00)
[2021-10-07] MEDS: BACITRACIN/POLYMYX 500-10,000 UNIT/GM OINT 14 GM TUBE TOPICAL SCH (11:47)
--- NOTE | 2021-10-07 16:14 | P.PN ---
Subjective Progress Note Date: 10/07/21 This is a 80 year old female who presents with displaced left femoral fracture. Patient underwent cardiac evaluation postoperatively for systolic murmur, outpatient follow up recommended. Patient is evaluated postoperatively and currently denies pain. Left lateral dressing site does appear saturated this was communicated with RN who has ordered to reinforce per primary. Also there was oozing at surgical incision left lateral knee which was reinforced with david bandage per RN. Patient does report some discomfort to right shoulder. She has a skin tear/abrasion to left shoulder which dressing will be ordered. Labs today showing hemoglobin 8.8, BUN 29/7, creatinine 1.2. Urinalysis negative. Patient is afebrile, heart rate 79, blood pressure 90/54, 93% room air. 10/06/2021 Patient is evaluated today resting that she is postoperative day #2 surgical repair for left femur fracture. Labs today showing white count 7.32, hemoglobin 7.3. Her left lateral hip dressing is reinforced. No acute events overnight. Patient will follow-up with cardiology outpatient. She is afebrile, heart rate 102, blood pressure 90/57, 94% room air. Pending PT OT evaluation 10/07/2021 Patient evaluated today sitting up in chair. PT recommending subacute rehab. She is post op day #3. She reports feeling tired today. States she is passing some gas but has not had a BM yet. Will also order incentive spirometer. She continues with indwelling catheter. Labs today showing white count 7.69, hgb 6.2, platelet count 131. 1 unit of PRBC's is ordered and will repeat hgb tomorrow. No signs of active bleeding. She is afebrile, heart rate 80s, blood pressure 115/68, 96% oxygenation. Metoprolol dose adjusted as patient was having low blood pressures. Also fluids were kVO, continue with hydration over night at 75 mls per hour. Review of Systems Constitutional: Denied any fatigue denied any fever. Cardio vascular: denied any chest pain, palpitations Gastrointestinal: denied any nausea, vomiting, diarrhea, passing gas, no BM yet. Pulmonary: Denied any shortness of breath cough Neurologic denied any new focal deficits All inpatient medications were reviewed and appropriate changes in these medications as dictated in the interval history and assessment and plan. PHYSICAL EXAMINATION: GENERAL: The patient is alert and oriented x3, not in any acute distress. Well developed, well nourished. HEENT: Pupils are round and equally reacting to light. EOMI. No scleral icterus. No conjunctival pallor. Normocephalic, atraumatic. No pharyngeal erythema. No thyromegaly. CARDIOVASCULAR: S1 and S2 present. No murmurs, rubs, or gallops. PULMONARY: Chest is clear to auscultation, no wheezing or crackles. ABDOMEN: Soft, nontender, nondistended, normoactive bowel sounds. No palpable organomegaly. Indwelling catheter in place MUSCULOSKELETAL: Post surgical left hip EXTREMITIES: No cyanosis, clubbing, or pedal edema. NEUROLOGICAL: Gross neurological examination did not reveal any focal deficits. SKIN: No rashes. abrasion left shoulder, david bandage present to left knee, Reinforced left lateral thigh dressing. Assessment and Plan Assessment: Mechanical fall with subsequent left femur fracture, post surgical repair Mild acute renal injury mostly prerenal, improving Postoperative anemia, no signs of acute bleeding Systolic murmur Hypertension currently normotensive Hypothyroidism History of degenerative disc disease status post right hip arthroplasty GI prophylaxis DVT Prophylaxis as per primary Full Code Plan: This is a pleasant 80 years old female with left femoral comminuted fracture aft er a fall post surgical repair Cardiology will follow up with patient after discharge Continue IV fluids, encourage oral intake Encourage incentive spirometer, ordered not one at bedside Dulcolax x 1 today, senna daily added 1 unit PRBC transfusion ordered Repeat CBC in AM PT/OT consultation Thank you for consulting us and we will follow up with you The impression and plan of care has been dictated by Kelley Johnson, Nurse Practitioner as directed. Dr. Estevan MD I have performed a history and physical examination and medical decision making of this patient, discussed the same with the dictator, and agree with the dictators assessment and plan as written, documented as a scribe. Based on total visit time, I have performed more than 50% of this visit. Objective - Vital Signs Vital signs: Vital Signs Temp 98.3 F 10/07/21 14:31 Pulse 99 10/07/21 14:31 Resp 18 10/07/21 14:31 BP 115/68 10/07/21 14:31 Pulse Ox 91 L 10/07/21 14:01 FiO2 Intake & Output 10/06/21 10/07/21 10/07/21 18:59 06:59 18:59 Intake Total 360 0 Output Total 350 Balance 360 -350 0 Intake: Oral 360 Blood Product 0 Unit 0 Output: Urine 350 Other: Voiding Method Indwelling Catheter Indwelling Catheter Indwelling Catheter # Bowel Movements 1 - Labs CBC & Chem 7: 10/07/21 05:00 10/06/21 05:35 Labs: Abnormal Lab Results - Last 24 Hours (Table) 10/04/21 10/05/21 10/07/21 Range/Units 13:50 14:28 05:00 WBC 10.08 H (4.50-10.00) X 10*3/uL RBC 2.91 L 2.08 L (4.10-5.20) X 10*6/uL Hgb 8.8 L 6.2 L* (12.0-15.0) g/dL Hct 27.9 L 19.3 L* (37.2-46.3) % MCHC 31.5 L (32.0-37.0) g/dL RDW 14.7 H (11.5-14.5) % Plt Count 102 L 131 L (140-440) X 10*3/uL Plt Count Comment DECREASED A MPV 13.1 H 12.3 H (9.5-12.2) fL Neutrophils # 7.77 H (1.80-7.70) X 10*3/uL Eosinophils # 0.02 L 0.02 L (0.04-0.35) X 10*3/uL Crossmatch See Detail Assessment and Plan Time with Patient: Less than 30
[2021-10-07] MEDS: FAMOTIDINE 20 MG TAB PO SCH (20:20)
[2021-10-07] MEDS: METOPROLOL TARTRATE 12.5 MG TAB PO SCH (20:20)
[2021-10-08] MEDS: SODIUM CHLORIDE 0.9% 1,000 ML IV SCH ×2 (04:28→14:04)
[2021-10-08] MEDS: CEFEPIME 2 GM in SODIUM CHLORIDE 0.9% 100 ML IVPB SCH ×2 (04:51→16:56)
[2021-10-08] MEDS: LEVOTHYROXINE 75 MCG TAB PO SCH (05:51)
[2021-10-08 08:48] LABS: Basophils # (A) 0.02 X 10*3/uL (0.00-0.10); Basophils % (A) 0.2 %; Eosinophils # (A) 0.08 X 10*3/uL (0.04-0.35); Eosinophils % (A) 0.9 %; HCT 21.8 % (37.2-46.3); HGB 7.1 g/dL (12.0-15.0); Immature Grans, Automated 0.3 %; Lymphocytes # (A) 0.93 X 10*3/uL (0.90-5.00); Lymphocytes % (A) 10.7 %; MCH 30.1 pg (27.0-32.0); MCHC 32.6 g/dL (32.0-37.0); MCV 92.4 fL (80.0-97.0); Mean Platelet Volume 12.4 fL (9.5-12.2); Monocytes # (A) 0.88 X 10*3/uL (0.20-1.00); Monocytes % (A) 10.1 %; NRBC Per 100 WBC 0 /100 WBCS (0.0-0.0); Neutrophils # (A) 6.77 X 10*3/uL (1.80-7.70); Neutrophils % (A) 77.8 %; Platelet Count 147 X 10*3/uL (140-440); RBC 2.36 X 10*6/uL (4.10-5.20); RDW 14.8 % (11.5-14.5); WBC 8.71 X 10*3/uL (4.50-10.00)
--- NOTE | 2021-10-08 09:18 | P.PN ---
Subjective Progress Note Date: 10/08/21 Principal diagnosis: 1. Left intertrochanteric hip fracture with subtrochanteric extension 2. s/p ffs Patient seen and examined at bedside. Patient was resting in bed, seems more emotional today. Encouraged her to call family members to come in and visit her. She states her pain is managed at this time. She states she worked with PT yesterday and was sitting up in chair. Patient denies any numbness tingling to bilateral lower extremities. Patient did receive 1u PRBCs yesterday 10/07/21 due to Hgb 6.2, current Hgb as of 10/08/21 is 7.1. Surgical dressings applied this morning, CDI. She denies any fever/chills, nausea/vomiting, or chest pain. Objective - Vital Signs Vital signs: Vital Signs Temp 98.2 F 10/08/21 05:00 Pulse 82 10/08/21 05:00 Resp 18 10/08/21 05:00 BP 96/57 10/08/21 05:00 Pulse Ox 91 L 10/08/21 05:00 FiO2 Intake & Output 10/07/21 10/08/21 10/08/21 18:59 06:59 18:59 Intake Total 276 250 Output Total 450 600 Balance -174 -350 Weight 58.967 kg Intake: Oral 250 Blood Product 276 Rc Pheresis 2 As3 Unit 276 [id number] Output: Urine 450 600 Uretheral (Abbott) 450 Other: Voiding Method Indwelling Catheter Indwelling Catheter # Bowel Movements 1 - Exam Physical Examination General: The patient is awake and alert, in no acute distress Skin: Skin is warm and dry with no obvious rashes or lesions. Hairy patches absent, no dorsal skin dimples, no cafe au lait spots. Surgical Incision to the left hip x3. Abrasion/Skin tear to left shoulder. Eye: Pupils are equal, round and reactive to light, extra-ocular movements are intact; there is normal conjunctiva bilaterally. Neck: The neck is supple, there is no tenderness and ROM intact. Cardiovascular: There is a regular rate and rhythm. No murmur, rub or gallop is appreciated. Respiratory: Lungs are clear to auscultation, respirations are non-labored, breath sounds are equal. Gastrointestinal: Soft, non-distended, non-tender abdomen . Back: There is no tenderness to palpation in the midline, paralumbar, parathoracic or buttocks region. There is no obvious deformity . Musculoskeletal: ROM limited of the Left Hip secondary to pain and stiffness from surgical procedure. Shoulder abduction 5/5, elbow flexors 5/5, wrist dorsiflexors 5/5. finger abductor 5/5, hydraulic plumber 5/5, hip flexor 4/5, knee flexor 4/5, ankle dorsiflexor 4/5, ankle plantarflexion 4/5 and extensor hallucis 4/5. Neurological: CN 2-12 intact. There are no obvious motor or sensory deficits. Movement and coordination equal and intact. Sensory exam to light touch intact C5-T1 and intact from L2-S1. Reflexes 2/4 in bilateral upper and lower extremiti es. Negative Hoffmans, babinski, and clonus signs. Psychiatric: Cooperative, appropriate mood & affect, normal judgment. - Labs CBC & Chem 7: 10/08/21 05:54 10/06/21 05:35 Labs: Abnormal Lab Results - Last 24 Hours (Table) 10/04/21 10/07/21 10/08/21 Range/Units 13:50 05:00 05:54 RBC 2.08 L 2.36 L (4.10-5.20) X 10*6/uL Hgb 6.2 L* 7.1 L (12.0-15.0) g/dL Hct 19.3 L* 21.8 L (37.2-46.3) % RDW 14.7 H 14.8 H (11.5-14.5) % Plt Count 131 L (140-440) X 10*3/uL MPV 12.3 H 12.4 H (9.5-12.2) fL Eosinophils # 0.02 L (0.04-0.35) X 10*3/uL Crossmatch See Detail Assessment and Plan Assessment: Post-Op day 3 Left hip open reduction and intramedullary nail fixation Plan: Plan: -Appreciate specialty sales consultant and team management. -Activity: Ambulate QID, OOB all meals, up and about. Use walker or cane if needed for stability. -Daily PT/OT, increase ambulation strength and balance. -Pain control: Adequate at this time -Meds: reviewed -GI ppx: senna, Miralax -DC abbott when up and about, bedside commode if needed -DVT PPX: Heparin -Hygiene: Shower today. Maintain dressing clean and dry. Change dressing daily or as needed. -Encourage IS 10x/hr -Dispo: Anticipate discharge within 48hrs *I reviewed and discussed this case with my attending Dr. Phelan, whom has reviewed this chart and films and is in agreement with assessment and plan of care as outlined above. I have personally seen and examined the patient, performed the documentation and the assessment and plan as written. Number of minutes spent on the visit: 20m.
[2021-10-08] MEDS: SENNOSIDES-DOCUSATE SODIUM 1 EACH TAB PO SCH (09:28)
[2021-10-08] MEDS: HEPARIN SODIUM,PORCINE/PF 5,000 UNIT/0.5 ML SYRINGE SQ SCH ×2 (09:28→20:08)
[2021-10-08] MEDS: METOPROLOL TARTRATE 12.5 MG TAB PO SCH ×2 (09:28→20:05)
[2021-10-08] MEDS: BACITRACIN/POLYMYX 500-10,000 UNIT/GM OINT 14 GM TUBE TOPICAL SCH (09:30)
[2021-10-08] MEDS: HYDROcodone/APAP 5-325MG 1 EACH TAB PO PRN (11:16)
[2021-10-08 11:56] LABS: African American GFR (CKD) 49.8 (60.0-200.0); Anion Gap 9.6 mmol/L (10.00-18.00); BUN/Creat Ratio 28.58 Ratio (12.00-20.00); Blood Urea Nitrogen 34.3 mg/dL (9.0-27.0); Calcium 8.6 mg/dL (8.7-10.3); Carbon Dioxide 22.4 mmol/L (20.0-27.5); Magnesium 1.3 mg/dL (1.5-2.4); Non-African American GFR(CKD) 42.9 (60.0-200.0); Potassium 4.4 mmol/L (3.5-5.5)
--- NOTE | 2021-10-08 12:23 | XR ---
EXAMINATION TYPE: XR chest 2V DATE OF EXAM: 10/08/2021 12:19 PM COMPARISON: Chest radiographs from 10/04/2021 TECHNIQUE: XR chest 2V Frontal and lateral views of the chest. CLINICAL INDICATION:Female, 80 years old with history of hypoxia; FINDINGS: Lungs/Pleura: There is no evidence of pleural effusion or pneumothorax. Bibasilar linear atelectasis. Pulmonary vascularity: Unremarkable. Heart/mediastinum: Cardiomediastinal silhouette is unremarkable. Atherosclerotic calcifications are seen in the aorta. Musculoskeletal: Chronic appearing anterior wedge compression deformities of the midthoracic spine. IMPRESSION: Bibasilar linear atelectasis.
[2021-10-08] MEDS ORDERED: Magnesium Replacement Protocol 1 EACH MISC MISCELLANE PRN (13:36)
--- NOTE | 2021-10-08 13:42 | P.PN ---
Subjective Progress Note Date: 10/08/21 This is a 80 year old female who presents with displaced left femoral fracture. Patient underwent cardiac evaluation postoperatively for systolic murmur, outpatient follow up recommended. Patient is evaluated postoperatively and currently denies pain. Left lateral dressing site does appear saturated this was communicated with RN who has ordered to reinforce per primary. Also there was oozing at surgical incision left lateral knee which was reinforced with david bandage per RN. Patient does report some discomfort to right shoulder. She has a skin tear/abrasion to left shoulder which dressing will be ordered. Labs today showing hemoglobin 8.8, BUN 29/7, creatinine 1.2. Urinalysis negative. Patient is afebrile, heart rate 79, blood pressure 90/54, 93% room air. 10/06/2021 Patient is evaluated today resting that she is postoperative day #2 surgical repair for left femur fracture. Labs today showing white count 7.32, hemoglobin 7.3. Her left lateral hip dressing is reinforced. No acute events overnight. Patient will follow-up with cardiology outpatient. She is afebrile, heart rate 102, blood pressure 90/57, 94% room air. Pending PT OT evaluation 10/07/2021 Patient evaluated today sitting up in chair. PT recommending subacute rehab. She is post op day #3. She reports feeling tired today. States she is passing some gas but has not had a BM yet. Will also order incentive spirometer. She continues with indwelling catheter. Labs today showing white count 7.69, hgb 6.2, platelet count 131. 1 unit of PRBC's is ordered and will repeat hgb tomorrow. No signs of active bleeding. She is afebrile, heart rate 80s, blood pressure 115/68, 96% oxygenation. Metoprolol dose adjusted as patient was having low blood pressures. Also fluids were kVO, continue with hydration over night at 75 mls per hour. 10/08/2021 Patient resting in bed today, reports feeling fatigued. She did receive 1 unit packed red blood cells yesterday, and hgb today is 7.1, will repeat levels tomorrow and also repeat in 2 days after discharge. Patient reports having a bowel movement overnight. Reports adequate pain control. No acute events overnight. Chest xray follow up today shows bilateral basilar atelectasis. She needs encouragement to use incentive spirometer. Increase acitivity level as well. Patient continues on IV cefepime postoperative for empiric antibiotic coverage. Sodium level today is 134. She is currently pending insurance authorization for rehab. Review of Systems Constitutional: Reports fatigue, denied any fever. Cardio vascular: denied any chest pain, palpitations Gastrointestinal: denied any nausea, vomiting, diarrhea. Pulmonary: Denied any shortness of breath cough Neurologic denied any new focal deficits All inpatient medications were reviewed and appropriate changes in these medications as dictated in the interval history and assessment and plan. PHYSICAL EXAMINATION: GENERAL: The patient is alert and oriented x3, not in any acute distress. Well developed, well nourished. Pale, fatigued. HEENT: Pupils are round and equally reacting to light. EOMI. No scleral icterus. No conjunctival pallor. Normocephalic, atraumatic. No pharyngeal erythema. No thyromegaly. CARDIOVASCULAR: S1 and S2 present. Systolic murmur. PULMONARY: Chest is clear to auscultation, no wheezing or crackles. ABDOMEN: Soft, nontender, nondistended, normoactive bowel sounds. No palpable organomegaly. Indwelling catheter in place MUSCULOSKELETAL: Post surgical left hip EXTREMITIES: No cyanosis, clubbing, or pedal edema. NEUROLOGICAL: Gross neurological examination did not reveal any focal deficits. SKIN: No rashes. abrasion left shoulder. dressing to left lateral hip intact. Assessment and Plan Assessment: Mechanical fall with subsequent left femur fracture, post surgical repair Mild acute renal injury mostly prerenal, improving Postoperative anemia, no signs of acute bleeding status post 1 unit of PRBC. Hgb today 7.1. Systolic murmur Hypertension currently blood pressure running in the low 100-90s systolic Hypomagnesemia 1.3 today Hyponatremia hypovolemic Hypothyroidism History of degenerative disc disease status post right hip arthroplasty GI prophylaxis DVT Prophylaxis as per primary continues on subcu heparin Full Code Plan: This is a pleasant 80 years old female with left femoral comminuted fracture after a fall post surgical repair Cardiology will follow up with patient after discharge Continue IV fluids, encourage oral intake Encourage incentive spirometer Repeat CBC/BMP Magnesium supplementation repeat mag in AM PT/OT consultation recommended subacute rehab on discharge Thank you for consulting us and we will follow up with you The impression and plan of care has been dictated by Kelley Johnson, Nurse Practitioner as directed. Dr. Estevan MD I have performed a history and physical examination and medical decision making of this patient, discussed the same with the dictator, and agree with the dictators assessment and plan as written, documented as a scribe. Based on total visit time, I have performed more than 50% of this visit. Objective - Vital Signs Vital signs: Vital Signs Temp 97.9 F 10/08/21 11:09 Pulse 84 10/08/21 11:09 Resp 18 10/08/21 11:09 BP 95/54 10/08/21 11:09 Pulse Ox 95 10/08/21 11:09 FiO2 Intake & Output 10/07/21 10/08/21 10/08/21 18:59 06:59 18:59 Intake Total 276 250 Output Total 450 600 Balance -174 -350 Weight 58.967 kg Intake: Oral 250 Blood Product 276 Rc Pheresis 2 As3 Unit 276 [id number] Output: Urine 450 600 Uretheral (Sutton) 450 Other: Voiding Method Indwelling Catheter Indwelling Catheter Indwelling Catheter # Bowel Movements 1 - Labs CBC & Chem 7: 10/08/21 05:54 10/08/21 05:54 Labs: Abnormal Lab Results - Last 24 Hours (Table) 10/04/21 10/08/21 10/08/21 Range/Units 13:50 05:54 05:54 RBC 2.36 L (4.10-5.20) X 10*6/uL Hgb 7.1 L (12.0-15.0) g/dL Hct 21.8 L (37.2-46.3) % RDW 14.8 H (11.5-14.5) % MPV 12.4 H (9.5-12.2) fL Sodium 134 L (135-145) mmol/L Anion Gap 9.60 L (10.00-18.00) mmol/L BUN 34.3 H (9.0-27.0) mg/dL Est GFR (CKD-EPI)AfAm 49.8 L (60.0-200.0) Est GFR (CKD-EPI)NonAf 42.9 L (60.0-200.0) BUN/Creatinine Ratio 28.58 H (12.00-20.00) Ratio Calcium 8.6 L (8.7-10.3) mg/dL Magnesium 1.3 L (1.5-2.4) mg/dL Crossmatch See Detail Assessment and Plan Time with Patient: Less than 30
[2021-10-08] MEDS: MAGNESIUM SULFATE-D5W PMX 1 GM in DEXTROSE/WATER 1 100ML.BAG IVPB SCH ×3 (14:07→21:59)
[2021-10-08] MEDS: FERROUS SULFATE 325 MG TAB PO SCH (20:05)
[2021-10-08] MEDS: FAMOTIDINE 20 MG TAB PO SCH (21:59)
[2021-10-09] MEDS: HYDROcodone/APAP 5-325MG 1 EACH TAB PO PRN ×3 (02:03→15:40)
[2021-10-09] MEDS: CEFEPIME 2 GM in SODIUM CHLORIDE 0.9% 100 ML IVPB SCH ×2 (03:27→15:49)
[2021-10-09] MEDS: SODIUM CHLORIDE 0.9% 1,000 ML IV SCH ×2 (03:27→18:13)
[2021-10-09] MEDS: LEVOTHYROXINE 75 MCG TAB PO SCH (05:31)
[2021-10-09] MEDS: METOPROLOL TARTRATE 12.5 MG TAB PO SCH ×2 (08:53→21:13)
[2021-10-09] MEDS: SENNOSIDES-DOCUSATE SODIUM 1 EACH TAB PO SCH (08:54)
[2021-10-09] MEDS: HEPARIN SODIUM,PORCINE/PF 5,000 UNIT/0.5 ML SYRINGE SQ SCH ×2 (08:54→21:13)
[2021-10-09] MEDS: BACITRACIN/POLYMYX 500-10,000 UNIT/GM OINT 14 GM TUBE TOPICAL SCH (08:55)
[2021-10-09] MEDS: FERROUS SULFATE 325 MG TAB PO SCH ×2 (08:55→18:01)
--- NOTE | 2021-10-09 09:08 | P.PN ---
Subjective Progress Note Date: 10/09/21 Principal diagnosis: 1. Left intertrochanteric hip fracture with subtrochanteric extension 2. s/p ffs Patient seen and examined at bedside. She states her pain is managed at this time. Patient denies any numbness tingling to bilateral lower extremities. Surgical dressings applied this morning, CDI. Pending her labs and authorization from insurance company patient will be discharged to subacute rehab ([facility]). Patient verbalizes understanding. She denies any fever/chills, nausea/vomiting, or chest pain. Objective - Vital Signs Vital signs: Vital Signs Temp 98.3 F 10/09/21 07:28 Pulse 83 10/09/21 07:28 Resp 16 10/09/21 07:28 BP 105/59 10/09/21 07:28 Pulse Ox 93 L 10/09/21 04:53 FiO2 Intake & Output 10/08/21 10/09/21 10/09/21 18:59 06:59 18:59 Intake Total 300 320 Output Total 700 550 Balance -400 -230 Intake: Intake, IV Titration 300 200 Amount Cefepime 2 gm In Sodium 100 100 Chloride 0.9% 100 ml @ 25 mls/hr IVPB Q12H [facility] Rx# :[id number] Magnesium Sulfate-D5w Pmx 200 100 1 gm In Dextrose/Water 1 100ml.bag @ 100 mls/hr IVPB Q1H [facility] Rx#: [id number] Oral 120 Output: Urine 700 550 Other: Voiding Method Indwelling Catheter Indwelling Catheter Indwelling Catheter - Exam Physical Examination General: The patient is awake and alert, in no acute distress Skin: Skin is warm and dry with no obvious rashes or lesions. Hairy patches absent, no dorsal skin dimples, no cafe au lait spots. Surgical Incision to the left hip x3. Abrasion/Skin tear to left shoulder. Eye: Pupils are equal, round and reactive to light, extra-ocular movements are intact; there is normal conjunctiva bilaterally. Neck: The neck is supple, there is no tenderness and ROM intact. Cardiovascular: There is a regular rate and rhythm. No murmur, rub or gallop is appreciated. Respiratory: Lungs are clear to auscultation, respirations are non-labored, breath sounds are equal. Gastrointestinal: Soft, non-distended, non-tender abdomen . Back: There is no tenderness to palpation in the midline, paralumbar, parathoracic or buttocks region. There is no obvious deformity . Musculoskeletal: ROM limited of the Left Hip secondary to pain and stiffness from surgical procedure. Shoulder abduction 5/5, elbow flexors 5/5, wrist dorsiflexors 5/5. finger abductor 5/5, manual equipment mechanic 5/5, hip flexor 4/5, knee flexor 4/5, ankle dorsiflexor 4/5, ankle plantarflexion 4/5 and extensor hallucis 4/5. Neurological: CN 2-12 intact. There are no obvious motor or sensory deficits. Movement and coordination equal and intact. Sensory exam to light touch intact C5-T1 and intact from L2-S1. Reflexes 2/4 in bilateral upper and lower extremities. Negative Hoffmans, babinski, and clonus signs. Psychiatric: Cooperative, appropriate mood & affect, normal judgment. - Labs CBC & Chem 7: 10/08/21 05:54 10/08/21 05:54 Labs: Abnormal Lab Results - Last 24 Hours (Table) 10/08/21 Range/Units 05:54 Sodium 134 L (135-145) mmol/L Anion Gap 9.60 L (10.00-18.00) mmol/L BUN 34.3 H (9.0-27.0) mg/dL Est GFR (CKD-EPI)AfAm 49.8 L (60.0-200.0) Est GFR (CKD-EPI)NonAf 42.9 L (60.0-200.0) BUN/Creatinine Ratio 28.58 H (12.00-20.00) Ratio Calcium 8.6 L (8.7-10.3) mg/dL Magnesium 1.3 L (1.5-2.4) mg/dL Assessment and Plan Assessment: Post-Op day 4 Left hip open reduction and intramedullary nail fixation Plan: Plan: -Appreciate senior internet sales consultant and team management. -Activity: Ambulate QID, OOB all meals, up and about. Use walker or cane if needed for stability. -Daily PT/OT, increase ambulation strength and balance. -Pain control: Adequate at this time -Meds: reviewed -GI ppx: senna, Miralax -DC abbott when up and about, bedside commode if needed -DVT PPX: Heparin -Hygiene: Shower today. Maintain dressing clean and dry. Change dressing daily or as needed. -Encourage IS 10x/hr -Dispo: Anticipate discharge within 24hrs to [facility] *I reviewed and discussed this case with my attending Dr. Phelan, whom has reviewed this chart and films and is in agreement with assessment and plan of care as outlined above. I have personally seen and examined the patient, performed the documentation and the assessment and plan as written. Number of minutes spent on the visit: 20m.
[2021-10-09 09:10] LABS: African American GFR (CKD) 62.1 (60.0-200.0); Anion Gap 8.1 mmol/L (10.00-18.00); BUN/Creat Ratio 29.3 Ratio (12.00-20.00); Blood Urea Nitrogen 29.3 mg/dL (9.0-27.0); Calcium 8.6 mg/dL (8.7-10.3); Carbon Dioxide 22.9 mmol/L (20.0-27.5); Non-African American GFR(CKD) 53.5 (60.0-200.0); Potassium 4.2 mmol/L (3.5-5.5)
[2021-10-09 09:14] LABS: HCT 22.1 % (37.2-46.3); MCH 29.5 pg (27.0-32.0); MCHC 31.7 g/dL (32.0-37.0); MCV 93.2 fL (80.0-97.0); Mean Platelet Volume 12.3 fL (9.5-12.2); NRBC Per 100 WBC 0 /100 WBCS (0.0-0.0); Platelet Count 173 X 10*3/uL (140-440); RBC 2.37 X 10*6/uL (4.10-5.20); RDW 14.6 % (11.5-14.5); WBC 7.12 X 10*3/uL (4.50-10.00)
--- NOTE | 2021-10-09 14:17 | CDI ---
Documentation Clarification Form Date: [id number] From: Desiree Dimas RN, CCDS Admit Date: 10/04/2021 12:11:00 PM Patient Name: Monica Sierra Visit Number: [id number] Discharge Date: ATTENTION: The Clinical Documentation Specialists (CDI) and [facility] Coding Staff appreciate your assistance in clarifying documentation. Please respond to the clarification below the line at the bottom and electronically sign. The CDI & [facility] Coding staff will review the response and follow-up if needed. Please note: Queries are made part of the Legal Health Record. If you have any questions, please contact the author of this message via ITS. Dr. López Phelan Post-operative anemia, no signs of acute bleeding is documented in the IM progress note on post op day #3, and patient had ORIF on 10/05/21. Additional clarification is requested regarding the relationship, if any, that exists between the diagnosis and the procedure. Patients Admitting Diagnosis: left intertrochanteric hip fracture with subtrochanteric extension Post-Operative Diagnosis: same Procedure performed: Left open reduction and intramedullary nail fixation History/Risk Factors: Clinical Indicators: 80-year-old female present with displaced left femoral fracture after fall. Post-operative anemia is documented. Some oozing at the surgical incision left lateral knee which was reinforced per primary. Operative note has estimated blood loss 200 (ml) 10/05 HGB 10.5, HCT 33.0 10/05 HGB 8.8, HCT 27.9 10/06 HGB 7.3, HCT 23.1 10/07 HGB 6.2, HCT 19.2 Treatment: Monitor CBC DAILY Transfuse 1 unit PRBC (10/07) What relationship, if any, exists between the diagnosis of post procedure anemia and the procedure? [ ] Post-operative anemia is a complication of surgical procedure [ ] Post-operative anemia is acute blood and, is an expected outcome of the surgical procedure [ ] Post-operative anemia is related to patients co-morbid condition(s) of [insert co-morbid dxs] & not a complication of the procedure [ ] Other please specify ____ [ ] Unable to determine (Template Last Revised: April 2020) Post-operative anemia is acute blood and, is an expected outcome of the surgical procedure [facility]
--- NOTE | 2021-10-09 15:04 | CDI ---
Documentation Clarification Form Date: 10/09/2021 From: Desiree Dimas RN, CCDS Admit Date: 10/04/2021 12:11:00 PM Patient Name: Monica Sierra Visit Number: [id number] Discharge Date: ATTENTION: The Clinical Documentation Specialists (CDI) and [facility] Coding Staff appreciate your assistance in clarifying documentation. Please respond to the clarification below the line at the bottom and electronically sign. The CDI & [facility] Coding staff will review the response and follow-up if needed. Please note: Queries are made part of the Legal Health Record. If you have any questions, please contact the author of this message via ITS. Dr. Marilynn España Postop hypertension is documented in your consult on 10/05/21 and patient left hip ORIF on 10/05/21. Additional clarification is requested regarding the relationship, if any, that exists between the diagnosis and the procedure. Patients Admitting Diagnosis: Left intertrochanteric hip fracture with subtrochanteric extension, closed, comminuted Post-Operative Diagnosis: Same Procedure performed: (10/05) Left hip open reduction and intramedullary nail fixation History/Risk Factors: Hypertension, Clinical Indicators: 80-year female present post fall with left femur fracture. She was taken for repair. 10/05 consult note: Vital signs has been relatively stable with some postop hypotension. She denies any shortness of breath. 10/05 Vital signs: 99/65 106 15 93 % RA 10/05 HGB 8.8, HCT 28.4 10/06 Vital signs: 90/57 102 97.8 84 % RA Treatment: Monitor Vs per protocol .9 ns @ 75 MLS HR 10/06-10/09 What relationship, if any, exists between the diagnosis postop hypotension and the procedure? [ ] Postop hypotension is a complication of surgical procedure [ ] [Postop hypotension is an expected outcome of the surgical procedure [ xx] Postop hypotension was not significant no treatment required. [ ] Other please specify ____ [ ] Unable to determine (Template Last Revised: April 2020) MTDD
--- NOTE | 2021-10-09 19:58 | P.PN ---
Subjective This is a 80 year old female who presents with displaced left femoral fracture. Patient underwent cardiac evaluation postoperatively for systolic murmur, outpatient follow up recommended. Patient is evaluated postoperatively and currently denies pain. Left lateral dressing site does appear saturated this was communicated with RN who has ordered to reinforce per primary. Also there was oozing at surgical incision left lateral knee which was reinforced with david bandage per RN. Patient does report some discomfort to right shoulder. She has a skin tear/abrasion to left shoulder which dressing will be ordered. Labs today showing hemoglobin 8.8, BUN 29/7, creatinine 1.2. Urinalysis negative. Patient is afebrile, heart rate 79, blood pressure 90/54, 93% room air. 10/06/2021 Patient is evaluated today resting that she is postoperative day #2 surgical repair for left femur fracture. Labs today showing white count 7.32, hemoglobin 7.3. Her left lateral hip dressing is reinforced. No acute events overnight. Patient will follow-up with cardiology outpatient. She is afebrile, heart rate 102, blood pressure 90/57, 94% room air. Pending PT OT evaluation 10/07/2021 Patient evaluated today sitting up in chair. PT recommending subacute rehab. She is post op day #3. She reports feeling tired today. States she is passing some gas but has not had a BM yet. Will also order incentive spirometer. She continues with indwelling catheter. Labs today showing white count 7.69, hgb 6.2, platelet count 131. 1 unit of PRBC's is ordered and will repeat hgb tomorrow. No signs of active bleeding. She is afebrile, heart rate 80s, blood pressure 115/68, 96% oxygenation. Metoprolol dose adjusted as patient was having low blood pressures. Also fluids were kVO, continue with hydration over night at 75 mls per hour. 10/08/2021 Patient resting in bed today, reports feeling fatigued. She did receive 1 unit packed red blood cells yesterday, and hgb today is 7.1, will repeat levels tomorrow and also repeat in 2 days after discharge. Patient reports having a bowel movement overnight. Reports adequate pain control. No acute events overnight. Chest xray follow up today shows bilateral basilar atelectasis. She needs encouragement to use incentive spirometer. Increase acitivity level as well. Patient continues on IV cefepime postoperative for empiric antibiotic coverage. Sodium level today is 134. She is currently pending insurance authorization for rehab. 10/09/2021 Patient still complaining from pain in her left thigh fracture, she is status post open fixation and internal nail fixation on 10/05. She is picking up her diet better today, she is eating 25-50% of her diet. She is pending placement to subacute rehab upon discharge. Labs and vitals are reviewed, blood pressure is 99/54, but improved through the day up to 124/80. IV fluids can be stopped. Patient tolerates diet. Creatinine is normal. Sodium is 1:30, hemoglobin 7.0. Patient is currently on cefepime 2 g twice a day by orthopedic team Patient has a Sutton with clear urine Check labs in the morning Objective - Vital Signs Vital signs: Vital Signs Temp 98.3 F 10/09/21 07:28 Pulse 83 10/09/21 07:28 Resp 16 10/09/21 07:28 BP 105/59 10/09/21 07:28 Pulse Ox 93 L 10/09/21 04:53 FiO2 Intake & Output 10/08/21 10/09/21 10/09/21 18:59 06:59 18:59 Intake Total 300 320 Output Total 700 550 Balance -400 -230 Intake: Intake, IV Titration 300 200 Amount Cefepime 2 gm In Sodium 100 100 Chloride 0.9% 100 ml @ 25 mls/hr IVPB Q12H [facility] Rx# :[id number] Magnesium Sulfate-D5w Pmx 200 100 1 gm In Dextrose/Water 1 100ml.bag @ 100 mls/hr IVPB Q1H [facility] Rx#: [id number] Oral 120 Output: Urine 700 550 Other: Voiding Method Indwelling Catheter Indwelling Catheter Indwelling Catheter - Exam GENERAL: The patient is alert and oriented x3, not in any acute distress. Well developed, well nourished. HEENT: Pupils are round and equally reacting to light. EOMI. No scleral icterus. No conjunctival pallor. Normocephalic, atraumatic. No pharyngeal erythema. No thyromegaly. CARDIOVASCULAR: S1 and S2 present. No murmurs, rubs, or gallops. PULMONARY: Chest is clear to auscultation, no wheezing or crackles. ABDOMEN: Soft, nontender, nondistended, normoactive bowel sounds. No palpable organomegaly. -MUSCULOSKELETAL: No joint swelling or deformity. Mild left thigh tenderness EXTREMITIES: No cyanosis, clubbing, or pedal edema. NEUROLOGICAL: Gross neurological examination did not reveal any focal deficits. SKIN: No rashes. no petechiae. - Labs CBC & Chem 7: 10/09/21 05:03 10/09/21 05:03 Labs: Abnormal Lab Results - Last 24 Hours (Table) 10/08/21 10/09/21 10/09/21 Range/Units 05:54 05:03 05:03 RBC 2.37 L (4.10-5.20) X 10*6/uL Hgb 7.0 L (12.0-15.0) g/dL Hct 22.1 L (37.2-46.3) % MCHC 31.7 L (32.0-37.0) g/dL RDW 14.6 H (11.5-14.5) % MPV 12.3 H (9.5-12.2) fL Sodium 134 L 130 L (135-145) mmol/L Anion Gap 9.60 L 8.10 L (10.00-18.00) mmol/L BUN 34.3 H 29.3 H (9.0-27.0) mg/dL Est GFR (CKD-EPI)AfAm 49.8 L (60.0-200.0) Est GFR (CKD-EPI)NonAf 42.9 L 53.5 L (60.0-200.0) BUN/Creatinine Ratio 28.58 H 29.30 H (12.00-20.00) Ratio Calcium 8.6 L 8.6 L (8.7-10.3) mg/dL Magnesium 1.3 L (1.5-2.4) mg/dL Assessment and Plan Assessment: Proximal left humeral fracture secondary to trauma, status post open reduction and internal fixation on 10/05 Fall after patient tripped without syncope Anemia Hypotension, improved Systolic murmur Hypertension, currently patient was hypotensive Hypothyroidism History of degenerative disc disease status post right hip arthroplasty Plan: this is a pleasant 80 years old female with left femoral comminuted fracture after a fall Orthopedic team on the case , continue with postop care Discontinue IV fluid, encourage oral intake and hydration Add ferrous sulfate Monitor hemoglobin and sodium level Labs and medication were reviewed.. Continue same treatment. Continue with symptomatic treatment. Resume home medication. Monitor lytes and vitals. DVT and GI prophylaxis. Further recommendations as per clinical course of the patient DVT prophylaxis: Subcutaneous heparin GI Prophylaxis: Pepcid Prognosis is guarded Thank you for consulting us and we will follow up with you
[2021-10-09] MEDS: FAMOTIDINE 20 MG TAB PO SCH (21:13)
[2021-10-10] MEDS: CEFEPIME 2 GM in SODIUM CHLORIDE 0.9% 100 ML IVPB SCH (03:18)
[2021-10-10] MEDS: HYDROcodone/APAP 5-325MG 1 EACH TAB PO PRN ×3 (03:29→15:07)
[2021-10-10] MEDS: LEVOTHYROXINE 75 MCG TAB PO SCH (06:10)
[2021-10-10] MEDS: SENNOSIDES-DOCUSATE SODIUM 1 EACH TAB PO SCH (08:00)
[2021-10-10] MEDS: METOPROLOL TARTRATE 12.5 MG TAB PO SCH (08:00)
[2021-10-10] MEDS: FERROUS SULFATE 325 MG TAB PO SCH (08:01)
[2021-10-10] MEDS: HEPARIN SODIUM,PORCINE/PF 5,000 UNIT/0.5 ML SYRINGE SQ SCH (08:01)
[2021-10-10 09:37] LABS: African American GFR (CKD) 61.3 (60.0-200.0); Anion Gap 9.6 mmol/L (10.00-18.00); BUN/Creat Ratio 28.02 Ratio (12.00-20.00); Blood Urea Nitrogen 28.3 mg/dL (9.0-27.0); Calcium 8.7 mg/dL (8.7-10.3); Carbon Dioxide 22.4 mmol/L (20.0-27.5); Magnesium 1.7 mg/dL (1.5-2.4); Non-African American GFR(CKD) 52.9 (60.0-200.0)
[2021-10-10 09:41] LABS: Basophils # (A) 0.03 X 10*3/uL (0.00-0.10); Basophils % (A) 0.5 %; Eosinophils # (A) 0.21 X 10*3/uL (0.04-0.35); Eosinophils % (A) 3.2 %; HCT 23.1 % (37.2-46.3); HGB 7.1 g/dL (12.0-15.0); Immature Grans, Automated 0.3 %; Lymphocytes # (A) 1.04 X 10*3/uL (0.90-5.00); MCH 29.5 pg (27.0-32.0); MCHC 30.7 g/dL (32.0-37.0); MCV 95.9 fL (80.0-97.0); Mean Platelet Volume 12.3 fL (9.5-12.2); Monocytes # (A) 0.79 X 10*3/uL (0.20-1.00); Monocytes % (A) 12.2 %; NRBC Per 100 WBC 0 /100 WBCS (0.0-0.0); Neutrophils # (A) 4.39 X 10*3/uL (1.80-7.70); Neutrophils % (A) 67.8 %; Platelet Count 214 X 10*3/uL (140-440); RBC 2.41 X 10*6/uL (4.10-5.20); RDW 14.6 % (11.5-14.5); WBC 6.48 X 10*3/uL (4.50-10.00)
--- NOTE | 2021-10-10 11:21 | P.PN ---
Subjective Progress Note Date: 10/10/21 Principal diagnosis: Status post ORIF left intertrochanteric femur fracture Patient was evaluated today at bedside, she is resting comfortably in her hospital bed. Her pain is well-controlled currently. Prior authorization has been obtained for subacute rehab, anticipation of discharge today. She currently denies any chest pain or shortness of breath. Objective - Vital Signs Vital signs: Vital Signs Temp 97.8 F 10/10/21 04:14 Pulse 83 10/10/21 04:14 Resp 13 10/10/21 04:14 BP 100/62 10/10/21 04:14 Pulse Ox 96 10/10/21 04:14 FiO2 Intake & Output 10/09/21 10/10/21 10/10/21 18:59 06:59 18:59 Intake Total 100 Balance 100 Intake: Intake, IV Titration 100 Amount Cefepime 2 gm In Sodium 100 Chloride 0.9% 100 ml @ 25 mls/hr IVPB Q12H [facility] Rx# :[id number] Other: Voiding Method Indwelling Catheter # Voids 1 1 - Exam Left lower extremity: Postoperative bandages are in good position and condition, no active drainage. There is minimal soft tissue swelling and ecchymosis surrounding the medial and lateral aspects of the incision. Calf is soft, no tenderness with palpation. Plantar flexion, dorsiflexion, EHL, FHL are intact. Sensory exam to light touch throughout the extremity is intact, dorsal pedis pulses 2+. - Labs CBC & Chem 7: 10/10/21 03:35 10/10/21 03:35 Labs: Abnormal Lab Results - Last 24 Hours (Table) 10/10/21 10/10/21 Range/Units 03:35 03:35 RBC 2.41 L (4.10-5.20) X 10*6/uL Hgb 7.1 L (12.0-15.0) g/dL Hct 23.1 L (37.2-46.3) % MCHC 30.7 L (32.0-37.0) g/dL RDW 14.6 H (11.5-14.5) % MPV 12.3 H (9.5-12.2) fL Sodium 131 L (135-145) mmol/L Anion Gap 9.60 L (10.00-18.00) mmol/L BUN 28.3 H (9.0-27.0) mg/dL Est GFR (CKD-EPI)NonAf 52.9 L (60.0-200.0) BUN/Creatinine Ratio 28.02 H (12.00-20.00) Ratio Assessment and Plan Assessment: Postoperative day #5 status post ORIF left intertrochanteric femur fracture Other medical comorbidities Plan: Pain control, plan for discharge home on [place] 5 mg/325 mg DVT prophylaxis, patient will continue heparin every 12 hours, instructions are placed on prescription for one to discontinue Wound care, daily dressing changes, okay to shower directly over the incisions at this time Weight-bear as tolerated, recommend walker at all times Continue this at subacute rehab Other medical specialty recommendations Discharge planning: Discharge to subacute rehab today Time with Patient: Less than 30
--- NOTE | 2021-10-10 11:25 | P.DS ---
Providers Date of admission: 10/04/21 12:11 Expected date of discharge: 10/10/21 Attending physician: López Phelan DO Consults: 10/04/21 12:11 Consult Physician Routine Consulting Provider: López Phelan Consult Reason/Comments: left femur fx Do you want consulting provider notified?: Already Contacted Primary care physician: Chavez [facility] Course: Date of admission: 10/04/2021 Date of discharge: 10/10/2021 Admission diagnosis: Displaced and comminuted left intertrochanteric femur fracture with subtrochanteric extension Discharge diagnosis: Status post ORIF left intertrochanteric femur fracture Attending physician: Dr. Phelan Surgical procedures: Open reduction internal fixation left intertrochanteric femur fracture Brief history: Patient is a 80-year-old female who presented to [facility] on 10/04/2021 after sustaining a fall from standing and injuring her left lower extremity. Upon arrival to the hospital, was determined the patient had a displaced and comminuted left intertrochanteric femur fracture with subtrochanteric extension. Our orthopedic team was notified, she was admitted under our care with plan for surgical intervention. Appropriate consults were placed for a clearance and medical management Hospital course: Details of patient's surgery can be found in operative report. Patient tolerated the procedure well and was subsequently transported to orthopedic floor. Patient's orthopeidc and medical care was provided daily. Patient had daily laboratory tests performed for evaluation of overall blood counts. Patient had daily physical therapy to include strengthening range of motion as well as education with walker ambulation. Patient was treated with heparin for their postoperative DVT prophylaxis during their inpatient stay. Patient was noted to have a relatively uneventful postoperative course. Patient reported satisfactory pain control with oral pain medications by postoperative day 0. Patient showed satisfactory progress with physical therapy. Patient moved steadily through the program and had no difficulty meeting the goals by postoperative day 3. Given patient's otherwise satisfactory course and having met physical therapy goals, plan is to discharge patient subacute rehab on postoperative day 5. Discharge condition/disposition: Patient will be discharged subacute rehab in stable condition. Discharge medications: Instructions are given on resumption of patient's normal daily medications per primary care recommendation, in addition patient will be prescribed [place] 5 mg/325 mg, ferrous sulfate 325 mg, Senokot-S, heparin 5000 units, Pepcid 20 mg, metoprolol 12.5 mg, bacitracin ointment. Discharge instructions: 1. Wound care and infection precautions, keep incision dry and covered while showering, no lotions, creams, moisturizers. No soaking, tubs, pools, hottubs. Do not scrub over the incision. 2. Weight-bear as tolerated with walker / cane until follow-up. 3. Ice and elevate when necessary. Do not exceed 20 minutes per hour with ice pack. 4. Utilize compression sleeve until seen at first follow up appointment. 5. Visiting nursing care. 6. Home physical therapy 7. Pain meds and anticoagulants per prescription. 8. Pain medication has potential to cause constipation. Increase oral fluid and fiber intake. Contact primary care provider if you have not had a bowel movement within 48 hours after discharge 9. No anti-inflammatory medication until discussed at first post operative visit, this including Motrin, Aleve, Mobic, Diclofenac 10. Follow up in office at 2 weeks postop with Kahlil Saucedo PA-C/Tj Garcia 11. Follow up with your primary care doctor 7-10 days after discharge. 12. Contact [facility] with any questions, . Procedures: Open reduction internal fixation left intertrochanteric femur fracture with subtrochanteric extension Patient Condition at Discharge: Stable Plan - Discharge Summary Discharge Rx Participant: No New Discharge Prescriptions: New Famotidine [Pepcid] 20 mg PO HS tab Sennosides-Docusate Sodium [Senokot-S] 1 each PO DAILY tab Metoprolol Tartrate [Lopressor] 12.5 mg PO BID tab Bacitracin/Polymyx Oint [Polysporin Oint] 1 applic TOPICAL DAILY each Ferrous Sulfate [Iron (65 MG Elemental)] 325 mg PO BID #60 tab Heparin Sodium,Porcine [Heparin Sodium] 5,000 unit SQ Q12HR #30 each Sennosides/Docusate Sodium [Senna-S 8.6-50 mg Tablet] 1 each PO DAILY PRN #30 tablet PRN Reason: Constipation HYDROcodone/APAP 5-325MG [[place] 5-325] 1 tab PO Q6HR PRN #18 tab PRN Reason: Pain Continue Naloxone HCl 4 mg NS DIRECTED PRN PRN Reason: overdose Levothyroxine Sodium [Synthroid] 150 mcg PO DAILY Discontinued Baclofen 10 mg PO BID PRN PRN Reason: Pain Metoprolol Tartrate [Lopressor] 50 mg PO BID No Action HYDROcodone/APAP 5-325MG [[place] 5-325] 1 tab PO DAILY PRN PRN Reason: Pain Discharge Medication List HYDROcodone/APAP 5-325MG [[place] 5-325] 1 tab PO DAILY PRN 07/24/21 [History] Levothyroxine Sodium [Synthroid] 150 mcg PO DAILY 07/24/21 [History] Naloxone HCl 4 mg NS DIRECTED PRN 10/04/21 [History] Bacitracin/Polymyx Oint [Polysporin Oint] 1 applic TOPICAL DAILY each 10/08/21 [Rx] Famotidine [Pepcid] 20 mg PO HS tab 10/08/21 [Rx] Metoprolol Tartrate [Lopressor] 12.5 mg PO BID tab 10/08/21 [Rx] Sennosides-Docusate Sodium [Senokot-S] 1 each PO DAILY tab 10/08/21 [Rx] Ferrous Sulfate [Iron (65 MG Elemental)] 325 mg PO BID #60 tab 10/09/21 [Rx] HYDROcodone/APAP 5-325MG [[place] 5-325] 1 tab PO Q6HR PRN #18 tab 10/09/21 [Rx] Heparin Sodium,Porcine [Heparin Sodium] 5,000 unit SQ Q12HR #30 each 10/09/21 [Rx] Sennosides/Docusate Sodium [Senna-S 8.6-50 mg Tablet] 1 each PO DAILY PRN #30 tablet 10/09/21 [Rx] Follow up Appointment(s)/Referral(s): Marilynn España MD [STAFF PHYSICIAN] - 2 Weeks Leonora Byrne MD [Primary Care Provider] - 1-2 days López Phelan DO [Doctor of Osteopathic Medicine] - 2 Weeks Activity/Diet/Wound Care/Special Instructions: Continue with bacitracin to left shoulder if needed Orthopedic Discharge Instructions: 1. Wound care and infection precautions, keep incision dry and covered while showering, no lotions, creams, moisturizers. No soaking, pools, hot tubs. Do not scrub over incision. 2. Weight-bear as tolerated with walker / cane until follow-up. 3. Ice and elevate when necessary. Do not exceed 20 minutes per hour with ice pack. 4. Utilize compression sleeve until seen at first follow up appointment. 5. Pain meds and anticoagulants per prescription. 6. Pain medication has potential to cause constipation. Increase oral fluid and fiber intake. Contact primary care provider if you have not had a bowel movement within 48 hours after discharge. 7. No anti-inflammatory medication until discussed at first post operative visit, this including Motrin, Aleve, Mobic, Diclofenac. 8. Follow up in office at 2 weeks postop with Kahlil Saucedo PA-C/Tj Craig PA-C 9. Follow up with your primary care doctor 7-10 days after discharge. 10. Contact [facility] with any questions, . Wound care instructions: 1. Okay to remove jason on 10/19/2021 2. Keep incisions covered and dry while showering Heart healthy diet activity is as tolerated Discharge Disposition: TRANSFER TO SNF/ECF
[2021-10-10 13:28] VITALS: BP 93/54; PULSE 78; RESP 16; TEMP 98.7
[2021-10-10] MEDS: BACITRACIN/POLYMYX 500-10,000 UNIT/GM OINT 14 GM TUBE TOPICAL SCH (15:09)
--- NOTE | 2021-10-10 20:05 | P.PN ---
Subjective This is a 80 year old female who presents with displaced left femoral fracture. Patient underwent cardiac evaluation postoperatively for systolic murmur, outpatient follow up recommended. Patient is evaluated postoperatively and currently denies pain. Left lateral dressing site does appear saturated this was communicated with RN who has ordered to reinforce per primary. Also there was oozing at surgical incision left lateral knee which was reinforced with david bandage per RN. Patient does report some discomfort to right shoulder. She has a skin tear/abrasion to left shoulder which dressing will be ordered. Labs today showing hemoglobin 8.8, BUN 29/7, creatinine 1.2. Urinalysis negative. Patient is afebrile, heart rate 79, blood pressure 90/54, 93% room air. 10/06/2021 Patient is evaluated today resting that she is postoperative day #2 surgical repair for left femur fracture. Labs today showing white count 7.32, hemoglobin 7.3. Her left lateral hip dressing is reinforced. No acute events overnight. Patient will follow-up with cardiology outpatient. She is afebrile, heart rate 102, blood pressure 90/57, 94% room air. Pending PT OT evaluation 10/07/2021 Patient evaluated today sitting up in chair. PT recommending subacute rehab. She is post op day #3. She reports feeling tired today. States she is passing some gas but has not had a BM yet. Will also order incentive spirometer. She continues with indwelling catheter. Labs today showing white count 7.69, hgb 6.2, platelet count 131. 1 unit of PRBC's is ordered and will repeat hgb tomorrow. No signs of active bleeding. She is afebrile, heart rate 80s, blood pressure 115/68, 96% oxygenation. Metoprolol dose adjusted as patient was having low blood pressures. Also fluids were kVO, continue with hydration over night at 75 mls per hour. 10/08/2021 Patient resting in bed today, reports feeling fatigued. She did receive 1 unit packed red blood cells yesterday, and hgb today is 7.1, will repeat levels tomorrow and also repeat in 2 days after discharge. Patient reports having a bowel movement overnight. Reports adequate pain control. No acute events overnight. Chest xray follow up today shows bilateral basilar atelectasis. She needs encouragement to use incentive spirometer. Increase acitivity level as well. Patient continues on IV cefepime postoperative for empiric antibiotic coverage. Sodium level today is 134. She is currently pending insurance authorization for rehab. 10/09/2021 Patient still complaining from pain in her left thigh fracture, she is status post open fixation and internal nail fixation on 10/05. She is picking up her diet better today, she is eating 25-50% of her diet. She is pending placement to subacute rehab upon discharge. Labs and vitals are reviewed, blood pressure is 99/54, but improved through the day up to 124/80. IV fluids can be stopped. Patient tolerates diet. Creatinine is normal. Sodium is 1:30, hemoglobin 7.0. Patient is currently on cefepime 2 g twice a day by orthopedic team Patient has a Sutton with clear urine Check labs in the morning 10/10/2021 Patient much improved today, she is sitting up in bed, she is pleasant and smiling. Her pain is controlled and she denies any pain in her left thigh. Vital signs stable Labs are stable. Hemoglobin is stable at 7.1 over several days. Sodium is stable at 131 and magnesium 1.7. Blood pressure is low normal with looks like her baseline while she is lying in bed. Patient is asymptomatic. Blood pressure is 93/54. Patient continued on cefepime per orthopedic team, the decision for discharge antibiotics is deferred as per surgery primary team. However patient with no fever or leukocytosis. Patient tolerating that well and she is off IV fluids. She is on metoprolol 12.5 mg and iron pill. Patient is medically stable. Sutton catheter was discontinued. Patient is symptomatic no dysuria or urgency. Postvoid residual was 250 mL Objective - Vital Signs Vital signs: Vital Signs Temp 98.7 F 10/10/21 12:18 Pulse 78 10/10/21 12:18 Resp 16 10/10/21 12:18 BP 93/54 10/10/21 12:18 Pulse Ox 96 10/10/21 12:18 FiO2 Intake & Output 10/10/21 10/10/21 10/11/21 06:59 18:59 06:59 Weight 58.967 kg Other: # Voids 1 - Exam GENERAL: The patient is alert and oriented x3, not in any acute distress. Well developed, well nourished. HEENT: Pupils are round and equally reacting to light. EOMI. No scleral icterus. No conjunctival pallor. Normocephalic, atraumatic. No pharyngeal erythema. No thyromegaly. CARDIOVASCULAR: S1 and S2 present. No murmurs, rubs, or gallops. PULMONARY: Chest is clear to auscultation, no wheezing or crackles. ABDOMEN: Soft, nontender, nondistended, normoactive bowel sounds. No palpable organomegaly. -MUSCULOSKELETAL: No joint swelling or deformity. Mild left thigh tenderness EXTREMITIES: No cyanosis, clubbing, or pedal edema. NEUROLOGICAL: Gross neurological examination did not reveal any focal deficits. SKIN: No rashes. no petechiae. - Labs CBC & Chem 7: 10/10/21 03:35 10/10/21 03:35 Labs: Abnormal Lab Results - Last 24 Hours (Table) 10/10/21 10/10/21 Range/Units 03:35 03:35 RBC 2.41 L (4.10-5.20) X 10*6/uL Hgb 7.1 L (12.0-15.0) g/dL Hct 23.1 L (37.2-46.3) % MCHC 30.7 L (32.0-37.0) g/dL RDW 14.6 H (11.5-14.5) % MPV 12.3 H (9.5-12.2) fL Sodium 131 L (135-145) mmol/L Anion Gap 9.60 L (10.00-18.00) mmol/L BUN 28.3 H (9.0-27.0) mg/dL Est GFR (CKD-EPI)NonAf 52.9 L (60.0-200.0) BUN/Creatinine Ratio 28.02 H (12.00-20.00) Ratio Assessment and Plan Assessment: Proximal left humeral fracture secondary to trauma, status post open reduction and internal fixation on 10/05 Fall after patient tripped without syncope Anemia Hypotension, improved Systolic murmur Hypertension, currently patient was hypotensive Hypothyroidism History of degenerative disc disease status post right hip arthroplasty Plan: this is a pleasant 80 years old female with left femoral comminuted fracture after a fall Orthopedic team on the case , continue with postop care Discontinue IV fluid, encourage oral intake and hydration Continue with ferrous sulfate Postvoid residual is noted, no evidence of urinary retention Labs and medication were reviewed.. Continue same treatment. Continue with symptomatic treatment. Resume home medication. Monitor lytes and vitals. DVT and GI prophylaxis. Further recommendations as per clinical course of the patient DVT prophylaxis: Subcutaneous heparin GI Prophylaxis: Pepcid Patient is clinically stable Thank you for consulting us and we will follow up with you
== END 2021-10-10 17:30 | DRG 481 ==
LOC: EC 09:00 → 5NMEDONC 12:11
PROVIDERS: ADMIT Orthopaedic Surgery; ATTEND Orthopaedic Surgery
PROC: 0QS704Z Reposition Left Upper Femur with Internal Fixation Device, Open Approach (ICD-10-PCS; principal; 2021-10-05 08:00)
PROC: 30233N1 Transfusion of Nonautologous Red Blood Cells into Peripheral Vein, Percutaneous Approach (ICD-10-PCS; 2021-10-07)
DX: S72.142A Displaced intertrochanteric fracture of left femur, initial encounter for closed fracture (principal); D62 Acute posthemorrhagic anemia; N17.9 Acute kidney failure, unspecified; E87.1 Hypo-osmolality and hyponatremia; J98.11 Atelectasis; I95.9 Hypotension, unspecified; S72.22XA Displaced subtrochanteric fracture of left femur, initial encounter for closed fracture; S40.212A Abrasion of left shoulder, initial encounter; I10 Essential (primary) hypertension; E83.42 Hypomagnesemia; E86.1 Hypovolemia; D50.9 Iron deficiency anemia, unspecified; R01.1 Cardiac murmur, unspecified; E03.9 Hypothyroidism, unspecified; M19.90 Unspecified osteoarthritis, unspecified site; Z79.890 Hormone replacement therapy; Z79.899 Other long term (current) drug therapy; Z91.81 History of falling; Z96.641 Presence of right artificial hip joint; W01.198A Fall on same level from slipping, tripping and stumbling with subsequent striking against other object, initial encounter; Y92.003 Bedroom of unspecified non-institutional (private) residence as the place of occurrence of the external cause
CPT/HCPCS: 36415; 51701; 71045; 71046; 72170; 73502; 80048; 81003; 83735; 83880; 85025; 85027; 85610; 85730; 86850; 86900; 86901; 86920; 93005; 96361; 96374; 96376; 99285

== ENCOUNTER 2023-03-30 16:18 | Inpatient (IN) | payer MEDICARE ==
--- NOTE | 2023-03-30 16:47 | ED ---
General Adult HPI - General Stated complaint: AMS Time Seen by Provider: 03/30/23 16:19 Source: patient, EMS, RN notes reviewed Mode of arrival: EMS Limitations: altered mental status, physical limitation - History of Present Illness Initial comments: Patient is a pleasantly confused 82-year-old female present to the emergency department for change in mental status. Patient found in bed by family. Patient reportedly did have a fall 3 days ago without reported injury. No re ported head injury. Patient denies any pain. Patient has no specific complaints. Patient is a poor historian - Related Data Home Medications Medication Instructions Recorded Confirmed Levothyroxine Sodium [Synthroid] 150 mcg PO W/SUPPER 07/24/21 04/12/22 Metoprolol Tartrate [Lopressor] 25 mg PO W/SUPPER 03/23/22 04/12/22 Previous Rx's Medication Instructions Recorded Acetaminophen Tab [Tylenol] 650 mg PO Q6HR PRN tab 04/15/22 Amoxic-Pot Clav 875-125Mg 1 tab PO BID 7 Days #14 tab 04/15/22 [Augmentin 875-125] Ascorbic Acid [Vitamin C] 500 mg PO DAILY tab 04/15/22 Benzonatate [Tessalon Perles] 100 mg PO TID PRN cap 04/15/22 Cholecalciferol [Vitamin D3 (25 50 mcg PO DAILY tab 04/15/22 Mcg = 1000 Iu)] Famotidine [Pepcid] 20 mg PO BID #20 tablet 04/15/22 HYDROcodone/APAP 5-325MG [[place] 1 tab PO DAILY PRN #3 tab 04/15/22 5-325] Zinc Sulfate [Orazinc] 220 mg PO DAILY cap 04/15/22 guaiFENesin SYRUP 100MG/5ML 200 mg PO Q6HR PRN ml 04/15/22 [Robitussin] Allergies Allergy/AdvReac Type Severity Reaction Status Date / Time No Known Allergies Allergy Verified 06/10/22 11:10 Review of Systems ROS Statement: Those systems with pertinent positive or pertinent negative responses have been documented in the HPI. ROS Other: All systems not noted in ROS Statement are negative. Limitations: ROS unobtainable due to patients medical condition Past Medical History Past Medical History: Osteoarthritis (OA), Thyroid Disorder Additional Past Medical History / Comment(s): arthritis History of Any Multi-Drug Resistant Organisms: None Reported Past Surgical History: Appendectomy, Back Surgery Additional Past Surgical History / Comment(s): 07/2021 R hip IM nail for fracture, left hip maykel. Past Anesthesia/Blood Transfusion Reactions: No Reported Reaction Additional Past Anesthesia/Blood Transfusion Reaction / Comment(s): Pt has clausterphobia Past Psychological History: No Psychological Hx Reported Smoking Status: Never smoker Past Alcohol Use History: Occasional Past Drug Use History: None Reported - Past Family History Father Family Medical History: No Reported History Additional Family Medical History / Comment(s): father was healthy Mother Family Medical History: Unable to Obtain Additional Family Medical History / Comment(s): Pt unable to recall mother's medical history General Exam Limitations: altered mental status, physical limitation General appearance: alert, in no apparent distress Head exam: Present: atraumatic Eye exam: Present: normal appearance, PERRL ENT exam: Present: normal oropharynx Neck exam: Present: normal inspection. Absent: tenderness, meningismus Respiratory exam: Present: normal lung sounds bilaterally Cardiovascular Exam: Present: regular rate, normal rhythm GI/Abdominal exam: Present: soft. Absent: tenderness Extremities exam: Present: tenderness (Mild tenderness left shoulder) Back exam: Present: normal inspection Neurological exam: Present: alert, altered, CN II-XII intact. Absent: motor sensory deficit Expanded Neurological exam: Present: inattentive, protecting the airway Patient oriented to: Present: person. Absent: place, time Motor strength exam: RUE: 5, LUE: 5, RLE: 5, LLE: 5 Eye Response: (4) open spontaneously Motor Response: (5) localizes to pain Verbal Response: (3) inappropriate words Psychiatric exam: Present: normal affect, normal mood Skin exam: Present: normal color Course Vital Signs 03/30/23 03/30/23 03/30/23 16:36 16:50 17:38 Temperature 100.5 F H 97.7 F 101.2 F H Pulse Rate 103 H 111 H Respiratory 20 20 20 Rate Blood Pressure 157/91 157/91 152/97 O2 Sat by Pulse 94 L 94 L Oximetry 03/30/23 03/30/23 18:52 19:54 Temperature 100.3 F H Pulse Rate 95 94 Respiratory 18 17 Rate Blood Pressure 102/53 109/61 O2 Sat by Pulse 98 95 Oximetry EKG Findings - EKG Results: EKG: interpreted by ERMD, sinus rhythm, normal axis, normal QRS, normal ST/T EKG shows: tachycardia Medical Decision Making - Medical Decision Making Was pt. sent in by a medical professional or institution (LISA Pang, [employer], urgent care, hospital, or senior care...) When possible be specific @ - Did you speak to anyone other than the patient for history (EMS, parent, family, police, friend...)? What history was obtained from this source @ -No Did you review nursing and triage notes (agree or disagree)? Why? @ -I reviewed and agree with nursing and triage notes Were old charts reviewed (outside hosp., previous admission, EMS record, old EKG, old radiological studies, urgent care reports/EKG's, senior care records)? Report findings @ -Previous admissions reviewed Differential Diagnosis (chest pain, altered mental status, abdominal pain women, abdominal pain men, vaginal bleeding, weakness, fever, dyspnea, syncope, headache, dizziness, GI bleed, back pain, seizure, CVA, palpatations, mental health, musculoskeletal)? @ -Differential Altered Mental Status: Hypoglycemia, DKA, hypercapnia, ETOH, overdose, CO poisoning, trauma, myxedema coma, HTN encephalopathy, infection, encephalitis, psychosis, intercranial hemorrhage, hepatic encephalopathy, meningitis, CVA, this is not meant to be an all-inclusive list EKG interpreted by me (3pts min.). @ -As above X-rays interpreted by me (1pt min.). @ -Chest x-ray shows no acute process. Shoulder x-ray shows no acute process pelvis x-ray shows no acute process. CT interpreted by me (1pt min.). @ -Brain and C-spine without acute abnormality U/S interpreted by me (1pt. min.). @ -None done What testing was considered but not performed or refused? (CT, X-rays, U/S, labs)? Why? @ -None What meds were considered but not given or refused? Why? @ -None Did you discuss the management of the patient with other professionals (professionals i.e. LISA Pang, [employer], lab, RT, psych nurse, social services designee, wood heel fitter machine, teacher, ground intelligence officer, medical case manager)? Give summary @ -Case discussed with Dr. Mims who will admit covering hospital call Was smoking cessation discussed for >3mins.? @ -No Was critical care preformed (if so, how long)? @ -No Were there social determinants of health that impacted care today? How? (Homelessness, low income, unemployed, alcoholism, drug addiction, transportation, low edu. Level, literacy, decrease access to med. care, long-term, rehab)? @ -No Was there de-escalation of care discussed even if they declined (Discuss DNR or withdrawal of care, Hospice)? DNR status @ -No What co-morbidities impacted this encounter? (DM, HTN, Smoking, COPD, CAD, Cancer, CVA, ARF, Chemo, Hep., AIDS, mental health diagnosis, sleep apnea, morbid obesity)? @ -None Was patient admitted / discharged? Hospital course, mention meds given and route, prescriptions, significant lab abnormalities, going to OR and other pertinent info. @ -Patient reevaluated and somewhat improved. Patient was updated on results and plan. Patient will be admitted. Admission orders written. Source of fever is unclear at this time. Undiagnosed new problem with uncertain prognosis? @ -No Drug Therapy requiring intensive monitoring for toxicity (Heparin, Nitro, Insulin, Cardizem)? @ -No Were any procedures done? @ -No Diagnosis/symptom? @ -Altered mental status Acute, or Chronic, or Acute on Chronic? @ -Acute Uncomplicated (without systemic symptoms) or Complicated (systemic symptoms)? @ -Default Side effects of treatment? @ -No Exacerbation, Progression, or Severe Exacerbation? @ -No Poses a threat to life or bodily function? How? (Chest pain, [place], [place], pneumonia, PE, COPD, DKA, ARF, appy, cholecystitis, CVA, Diverticulitis, Homicidal, Suicidal, threat to staff... and all critical care pts) @ -No - Lab Data Result diagrams: 03/30/23 17:13 03/30/23 17:13 Lab Results 03/30/23 03/30/23 03/30/23 Range/Units 17:13 17:13 17:13 WBC 10.4 (3.8-10.6) k/uL RBC 4.29 (3.80-5.40) m/uL Hgb 13.8 (11.4-16.0) gm/dL Hct 42.2 (34.0-46.0) % MCV 98.5 (80.0-100.0) fL MCH 32.2 (25.0-35.0) pg MCHC 32.7 (31.0-37.0) g/dL RDW 12.5 (11.5-15.5) % Plt Count 209 (150-450) k/uL MPV 8.3 Neutrophils % 81 % Lymphocytes % 11 % Monocytes % 6 % Eosinophils % 1 % Basophils % 0 % Neutrophils # 8.5 H (1.3-7.7) k/uL Lymphocytes # 1.2 (1.0-4.8) k/uL Monocytes # 0.6 (0-1.0) k/uL Eosinophils # 0.1 (0-0.7) k/uL Basophils # 0.0 (0-0.2) k/uL PT 10.5 (10.0-12.5) sec INR 1.0 (<1.2) APTT 20.6 L (22.0-30.0) sec Sodium 141 (137-145) mmol/L Potassium 4.8 (3.5-5.1) mmol/L Chloride 103 (98-107) mmol/L Carbon Dioxide 27 (22-30) mmol/L Anion Gap 11 mmol/L BUN 26 H (7-17) mg/dL Creatinine 1.28 H (0.52-1.04) mg/dL Est GFR (CKD-EPI)AfAm 46 (>60 ml/min/1.73 sqM) Est GFR (CKD-EPI)NonAf 40 (>60 ml/min/1.73 sqM) Glucose 111 H (74-99) mg/dL Lactic Ac Sepsis Rflx Plasma Lactic Acid [place] (0.7-2.0) mmol/L Calcium 10.3 H (8.4-10.2) mg/dL Total Bilirubin 1.2 (0.2-1.3) mg/dL AST 26 (14-36) U/L ALT 14 (4-34) U/L Alkaline Phosphatase 148 H (38-126) U/L Total Protein 7.7 (6.3-8.2) g/dL Albumin 4.2 (3.5-5.0) g/dL Urine Color Urine Appearance (Clear) Urine pH (5.0-8.0) Ur Specific [place] (1.001-1.035) Urine Protein (Negative) Urine Glucose (UA) (Negative) Urine Ketones (Negative) Urine Blood (Negative) Urine Nitrite (Negative) Urine Bilirubin (Negative) Urine Urobilinogen (<2.0) mg/dL Ur Leukocyte Esterase (Negative) Urine RBC (0-5) /hpf Urine WBC (0-5) /hpf Ur Squamous Epith Cells (0-4) /hpf Urine Mucus (None) /hpf Influenza Type A (PCR) (Not Detectd) Influenza Type B (PCR) (Not Detectd) RSV (PCR) (Not Detectd) SARS-CoV-2 (PCR) (Not Detectd) 03/30/23 03/30/23 03/30/23 Range/Units 17:13 17:13 17:13 WBC (3.8-10.6) k/uL RBC (3.80-5.40) m/uL Hgb (11.4-16.0) gm/dL Hct (34.0-46.0) % MCV (80.0-100.0) fL MCH (25.0-35.0) pg MCHC (31.0-37.0) g/dL RDW (11.5-15.5) % Plt Count (150-450) k/uL MPV Neutrophils % % Lymphocytes % % Monocytes % % Eosinophils % % Basophils % % Neutrophils # (1.3-7.7) k/uL Lymphocytes # (1.0-4.8) k/uL Monocytes # (0-1.0) k/uL Eosinophils # (0-0.7) k/uL Basophils # (0-0.2) k/uL PT (10.0-12.5) sec INR (<1.2) APTT (22.0-30.0) sec Sodium (137-145) mmol/L Potassium (3.5-5.1) mmol/L Chloride (98-107) mmol/L Carbon Dioxide (22-30) mmol/L Anion Gap mmol/L BUN (7-17) mg/dL Creatinine (0.52-1.04) mg/dL Est GFR (CKD-EPI)AfAm (>60 ml/min/1.73 sqM) Est GFR (CKD-EPI)NonAf (>60 ml/min/1.73 sqM) Glucose (74-99) mg/dL Lactic Ac Sepsis Rflx Plasma Lactic Acid [place] 3.1 H* (0.7-2.0) mmol/L Calcium (8.4-10.2) mg/dL Total Bilirubin (0.2-1.3) mg/dL AST (14-36) U/L ALT (4-34) U/L Alkaline Phosphatase (38-126) U/L Total Protein (6.3-8.2) g/dL Albumin (3.5-5.0) g/dL Urine Color Light Yellow Urine Appearance Clear (Clear) Urine pH 5.5 (5.0-8.0) Ur Specific [place] 1.017 (1.001-1.035) Urine Protein Trace H (Negative) Urine Glucose (UA) Negative (Negative) Urine Ketones 1+ H (Negative) Urine Blood Trace H (Negative) Urine Nitrite Negative (Negative) Urine Bilirubin Negative (Negative) Urine Urobilinogen <2.0 (<2.0) mg/dL Ur Leukocyte Esterase Negative (Negative) Urine RBC 1 (0-5) /hpf Urine WBC 1 (0-5) /hpf Ur Squamous Epith Cells 1 (0-4) /hpf Urine Mucus Rare H (None) /hpf Influenza Type A (PCR) Not Detected (Not Detectd) Influenza Type B (PCR) Not Detected (Not Detectd) RSV (PCR) Not Detected (Not Detectd) SARS-CoV-2 (PCR) Not Detected (Not Detectd) 03/30/23 03/30/23 Range/Units 18:26 20:41 WBC (3.8-10.6) k/uL RBC (3.80-5.40) m/uL Hgb (11.4-16.0) gm/dL Hct (34.0-46.0) % MCV (80.0-100.0) fL MCH (25.0-35.0) pg MCHC (31.0-37.0) g/dL RDW (11.5-15.5) % Plt Count (150-450) k/uL MPV Neutrophils % % Lymphocytes % % Monocytes % % Eosinophils % % Basophils % % Neutrophils # (1.3-7.7) k/uL Lymphocytes # (1.0-4.8) k/uL Monocytes # (0-1.0) k/uL Eosinophils # (0-0.7) k/uL Basophils # (0-0.2) k/uL PT (10.0-12.5) sec INR (<1.2) APTT (22.0-30.0) sec Sodium (137-145) mmol/L Potassium (3.5-5.1) mmol/L Chloride (98-107) mmol/L Carbon Dioxide (22-30) mmol/L Anion Gap mmol/L BUN (7-17) mg/dL Creatinine (0.52-1.04) mg/dL Est GFR (CKD-EPI)AfAm (>60 ml/min/1.73 sqM) Est GFR (CKD-EPI)NonAf (>60 ml/min/1.73 sqM) Glucose (74-99) mg/dL Lactic Ac Sepsis Rflx Y Plasma Lactic Acid [place] 1.2 (0.7-2.0) mmol/L Calcium (8.4-10.2) mg/dL Total Bilirubin (0.2-1.3) mg/dL AST (14-36) U/L ALT (4-34) U/L Alkaline Phosphatase (38-126) U/L Total Protein (6.3-8.2) g/dL Albumin (3.5-5.0) g/dL Urine Color Urine Appearance (Clear) Urine pH (5.0-8.0) Ur Specific [place] (1.001-1.035) Urine Protein (Negative) Urine Glucose (UA) (Negative) Urine Ketones (Negative) Urine Blood (Negative) Urine Nitrite (Negative) Urine Bilirubin (Negative) Urine Urobilinogen (<2.0) mg/dL Ur Leukocyte Esterase (Negative) Urine RBC (0-5) /hpf Urine WBC (0-5) /hpf Ur Squamous Epith Cells (0-4) /hpf Urine Mucus (None) /hpf Influenza Type A (PCR) (Not Detectd) Influenza Type B (PCR) (Not Detectd) RSV (PCR) (Not Detectd) SARS-CoV-2 (PCR) (Not Detectd) Disposition Clinical Impression: Altered mental status Disposition: ADMITTED IP TO THIS HOSP Is patient prescribed a controlled substance at d/c from ED?: No Referrals: None,Stated [Primary Care Provider] - 1-2 days Time of Disposition: 21:27
[2023-03-30] MEDS: ACETAMINOPHEN IV (For NPO) 1,000 MG in EMPTY BAG 1 BAG IVPB STA (17:46)
[2023-03-30] MEDS: SODIUM CHLORIDE 0.9% 1,000 ML IV SCH ×2 (17:47→22:27)
[2023-03-30 17:48] LABS: Basophils % (A) 0 %; Eosinophils # (A) 0.1 k/uL (0-0.7); Eosinophils % (A) 1 %; HCT 42.2 % (34.0-46.0); HGB 13.8 gm/dL (11.4-16.0); Lymphocytes # (A) 1.2 k/uL (1.0-4.8); Lymphocytes % (A) 11 %; MCH 32.2 pg (25.0-35.0); MCHC 32.7 g/dL (31.0-37.0); MCV 98.5 fL (80.0-100.0); Mean Platelet Volume 8.3; Monocytes # (A) 0.6 k/uL (0-1.0); Monocytes % (A) 6 %; Neutrophils # (A) 8.5 k/uL (1.3-7.7); Neutrophils % (A) 81 %; Platelet Count 209 k/uL (150-450); RBC 4.29 m/uL (3.80-5.40); RDW 12.5 % (11.5-15.5); WBC 10.4 k/uL (3.8-10.6)
[2023-03-30 18:09] LABS: ALT 14 U/L (4-34); AST 26 U/L (14-36); African American GFR (CKD) 46 (>60 ml/min/1.73 sqM); Albumin 4.2 g/dL (3.5-5.0); Alkaline Phosphatase 148 U/L (38-126); Anion Gap 11 mmol/L; Blood Urea Nitrogen 26 mg/dL (7-17); Calcium 10.3 mg/dL (8.4-10.2); Carbon Dioxide 27 mmol/L (22-30); Chloride 103 mmol/L (98-107); Glucose 111 mg/dL (74-99); Non-African American GFR(CKD) 40 (>60 ml/min/1.73 sqM); Potassium 4.8 mmol/L (3.5-5.1); Sodium 141 mmol/L (137-145); Total Bilirubin 1.2 mg/dL (0.2-1.3); Total Protein 7.7 g/dL (6.3-8.2)
[2023-03-30 18:17] LABS: Prothrombin Time 10.5 sec (10.0-12.5)
[2023-03-30 18:24] LABS: Partial Thromboplastin Time 20.6 sec (22.0-30.0)
--- NOTE | 2023-03-30 18:43 | CT ---
EXAMINATION TYPE: CT brain cspine wo con DATE OF EXAM: 03/30/2023 COMPARISON: 04/12/2022 HISTORY: AMS CT DLP: 1636.8 mGycm. Automated Exposure Control for Dose Reduction was Utilized. TECHNIQUE: CT scan of the head and cervical spine are performed without contrast. FINDINGS: There is no acute intracranial hemorrhage, mass effect, or midline shift identified. No de finite acute attenuation defect. The ventricles are enlarged, out of proportion to the sulcal pattern /basal cisterns, which can correlate with a clinical diagnosis of normal pressure hydrocephalus. The globes are intact and the paranasal sinuses, middle ear cavities, and mastoid sinus air cells are bee ar. Cervical spine is visualized in its entirety from C1 through upper thoracic levels and demonstrates s atisfactory alignment without evidence of acute fracture or dislocation. Multilevel advanced cervical spondylosis changes noted. Prevertebral soft tissue appears within normal limits. The C1-C2 articula tion is unremarkable. IMPRESSION: 1. There is no acute fracture or dislocation evident in the cervical spine. 2. No acute cranial/intracranial process. Incidental: stable CT findings which can correlate with a c linical diagnosis of NPH.
[2023-03-30 19:25] LABS: Appearance,Urine Clear (Clear); Bilirubin,Urine Negative (Negative); Blood,Urine Trace (Negative); Color,Urine Light Yellow; Glucose,Urine (UA) Negative (Negative); Ketones,Urine 1+ (Negative); Leukocyte Esterase,Urine Negative (Negative); Mucus,Urine Rare /hpf; Nitrite,Urine Negative (Negative); PH, Urine 5.5 (5.0-8.0); Protein,Urine Trace (Negative); RBC,Urine 1 /hpf (0-5); Specific Gravity,Urine 1.017 (1.001-1.035); Squamous Epithelial Cell,Urine 1 /hpf (0-4); Urobilinogen,Urine <2.0 mg/dL (<2.0); WBC,Urine 1 /hpf (0-5)
--- NOTE | 2023-03-30 19:39 | XR ---
PROCEDURE: XR pelvis AP view DATE AND TIME: 03/30/2023 6:41 PM CLINICAL INDICATION: PHH; fall TECHNIQUE: AP view. COMPARISON: 10/06/2021 FINDINGS/IMPRESSION: There is no definite displaced fracture or malalignment on this single AP pelvis radiograph. Visuali zed bilateral prostheses are intact.
--- NOTE | 2023-03-30 19:41 | XR ---
PROCEDURE: XR shoulder complete LT - 3V DATE AND TIME: 03/30/2023 6:41 PM CLINICAL INDICATION: PH[facility]; fall TECHNIQUE: Department protocol COMPARISON: None FINDINGS/IMPRESSION: There is no fracture or malalignment. No focal skeletal lesion. Moderate osteoarthrosis changes noted at the acromioclavicular and glenohumeral joints.
--- NOTE | 2023-03-30 19:45 | XR ---
EXAMINATION: XR chest 1V portable DATE AND TIME: 03/30/2023 6:41 PM CLINICAL INDICATION: [facility]; fall TECHNIQUE: AP supine portable COMPARISON: 04/12/2022 FINDINGS/IMPRESSION: The lungs are negative for acute pulmonary process is seen. The pleural spaces are negative. The cardiac silhouette is not enlarged. The remainder of the mediastinal silhouette is unremarkable. The skeletal structures and soft tissues are negative for acute findings. Limitation of the study: Supine radiography cannot exclude pneumothorax or other abnormal gas collections.
[2023-03-30] MEDS ORDERED: NALOXONE 0.4 MG/ML 1 ML VIAL IV PRN (21:27)
--- NOTE | 2023-03-31 04:30 | P.HPIM ---
History of Present Illness H&P Date: 03/30/23 Chief Complaint: Altered mental status 82-year-old female with osteoarthritis Patient was found altered at home by her family for which she was brought to the hospital for evaluation. She is unable to provide any meaningful history at this time family not present History obtained by discussing the case with ED doctor and patient nurse who reports a fall about 3 days ago no reported injuries loss of consciousness no reported head injury. No further information is available at this time Patient is pleasantly confused in bed resist care, mumbles random words moving all 4 extremities spontaneously and purposefully review of systems Unable to obtain due to mental status on exam Constitutional: Confused mumbles incoherent words Eyes: Resists opening her eyes ENMT: NC/AT Resist opening her mouth Neck: Resist neck exam no masses, or JVD No carotid bruits No thyromegaly Lungs: Poor effort, clear to auscultation Clear to percussion Normal respiratory effort, no accessory muscle use Cardiovascular: Heart regular in rate and rhythm, No murmurs, gallops, or rubs No peripheral edema Abdominal: Soft Nontender, no guarding, rebound or rigidity Abdomen moving with respiration Normoactive bowel sounds Extremities: No digital cyanosis No clubbing Pedal pulses intact and symmetrical Radial pulses intact and symmetrical No calf tenderness Psychiatric: Confused does not cooperate with exam Neuro resists exam, however she is moving all 4 extremities purposefully spontaneously Past Medical History Past Medical History: Osteoarthritis (OA), Thyroid Disorder Additional Past Medical History / Comment(s): arthritis History of Any Multi-Drug Resistant Organisms: None Reported Past Surgical History: Appendectomy, Back Surgery Additional Past Surgical History / Comment(s): 07/2021 R hip IM nail for fracture, left hip maykel. Past Anesthesia/Blood Transfusion Reactions: No Reported Reaction Additional Past Anesthesia/Blood Transfusion Reaction / Comment(s): Pt has clausterphobia Past Psychological History: No Psychological Hx Reported Smoking Status: Never smoker Past Alcohol Use History: Occasional Past Drug Use History: None Reported - Past Family History Father Family Medical History: No Reported History Additional Family Medical History / Comment(s): father was healthy Mother Family Medical History: Unable to Obtain Additional Family Medical History / Comment(s): Pt unable to recall mother's medical history Medications and Allergies Home Medications Medication Instructions Recorded Confirmed Type Levothyroxine Sodium [Synthroid] 150 mcg PO DAILY 07/24/21 03/30/23 History Famotidine [Pepcid] 20 mg PO BID #20 tablet 04/15/22 03/30/23 Rx Aspirin EC [Ecotrin Low Dose] 81 mg PO DAILY 03/30/23 03/30/23 History HYDROcodone/APAP 5-325MG [[place] 1 tab PO BID PRN 03/30/23 03/30/23 History 5-325] Metoprolol Succinate (ER) [Toprol 50 mg PO BID 03/30/23 03/30/23 History Xl] QUEtiapine [SEROquel] 100 mg PO HS 03/30/23 03/30/23 History Allergies Allergy/AdvReac Type Severity Reaction Status Date / Time No Known Allergies Allergy Verified 06/10/22 11:10 Physical Exam Vitals: Vital Signs Temp Pulse Resp BP Pulse Ox 03/31/23 00:07 94 17 105/69 92 L 03/30/23 19:54 94 17 109/61 95 03/30/23 18:52 100.3 F H 95 18 102/53 98 03/30/23 17:38 101.2 F H 111 H 20 152/97 94 L 03/30/23 16:50 97.7 F 103 H 20 157/91 94 L 03/30/23 16:36 100.5 F H 20 157/91 Intake and Output 03/30/23 03/30/23 03/31/23 14:59 22:59 06:59 Output Total 250 Balance -250 Output: Urine 250 Straight 250 Other: Weight 81.647 kg Results CBC & Chem 7: 03/30/23 17:13 03/30/23 17:13 Labs: Abnormal Lab Results - Last 24 Hours (Table) 03/30/23 03/30/23 03/30/23 Range/Units 17:13 17:13 17:13 Neutrophils # 8.5 H (1.3-7.7) k/uL APTT 20.6 L (22.0-30.0) sec BUN 26 H (7-17) mg/dL Creatinine 1.28 H (0.52-1.04) mg/dL Glucose 111 H (74-99) mg/dL Plasma Lactic Acid [place] (0.7-2.0) mmol/L Calcium 10.3 H (8.4-10.2) mg/dL Alkaline Phosphatase 148 H (38-126) U/L Urine Protein (Negative) Urine Ketones (Negative) Urine Blood (Negative) Urine Mucus (None) /hpf 03/30/23 03/30/23 Range/Units 17:13 17:13 Neutrophils # (1.3-7.7) k/uL APTT (22.0-30.0) sec BUN (7-17) mg/dL Creatinine (0.52-1.04) mg/dL Glucose (74-99) mg/dL Plasma Lactic Acid [place] 3.1 H* (0.7-2.0) mmol/L Calcium (8.4-10.2) mg/dL Alkaline Phosphatase (38-126) U/L Urine Protein Trace H (Negative) Urine Ketones 1+ H (Negative) Urine Blood Trace H (Negative) Urine Mucus Rare H (None) /hpf Assessment and Plan Assessment: 82-year-old female coming from home after being found down with altered mental status there is a report of fall a fall 3 days ago with no head injury I discussed the case with ED doctor and accepted the admission for close monitoring neuro evaluation with anticipated length of stay less than 2 midnights Acute metabolic encephalopathy unknown underlying cause Frequent falling at home CT scan of the head and neck no acute intracranial pathology, no acute fractures Chest x-ray no acute cardiopulmonary process Pelvic x-ray shows no acute fractures Shoulder x-ray showed no acute fractures Supportive care Fall precautions PT/OT evaluation Neuro evaluation Monitor vital signs Gentle IV fluid hydration normal saline 75 cc/h Blood work reviewed showing White count 10 hemoglobin 13.8 Sodium 141 potassium 4.8 BUN 36 creatinine 1.28 Lactic acid 3.1 improved to 1.2 with hydration Acute respiratory viral panel negative for COVID influenza and RSV Full code DVT prophylaxis mechanical
[2023-03-31] MEDS ORDERED: VANCOMYCIN IV PER PHARMACY 1 EACH MISC MISCELLANE PRN (04:37)
[2023-03-31] MEDS: AMPICILLIN 2,000 MG in SODIUM CHLORIDE 0.9% 100 ML IVPB STA (05:25)
[2023-03-31] MEDS: LEVOTHYROXINE 75 MCG TAB PO SCH (06:41)
[2023-03-31] MEDS: VANCOMYCIN 1,500 MG in SODIUM CHLORIDE 0.9% 500 ML 500 ML IVPB STA (08:11)
--- NOTE | 2023-03-31 08:13 | XR ---
EXAMINATION TYPE: XR chest 1V portable DATE OF EXAM: 03/31/2023 COMPARISON: 03/30/2023 HISTORY: Fever TECHNIQUE: Single frontal view of the chest is obtained. FINDINGS: Bilateral linear subsegmental areas of consolidation. Atherosclerotic changes of aorta. Li mited inspiration no sizable pneumothorax or pleural effusion. Heart size normal. These osteopenia, a rthropathy of the shoulders and degenerative changes. Secondary mild prominence of the left hilum. Re commend standard PA and lateral views chest are evaluated IMPRESSION: 1. Bilateral areas of consolidation or this represents atelectasis. See above.
[2023-03-31] MEDS: METOPROLOL SUCCINATE (ER) 50 MG TAB.ER.24H PO SCH (08:34)
[2023-03-31] MEDS: ASPIRIN 81 MG PO SCH (08:34)
[2023-03-31] MEDS: PANTOPRAZOLE 40 MG/10 ML VIAL IV SCH (08:34)
[2023-03-31] MEDS: AMPICILLIN 2,000 MG in SODIUM CHLORIDE 0.9% 100 ML IVPB SCH (11:48)
[2023-03-31 12:37] LABS: Basophils % (A) 0 %; Eosinophils # (A) 0.1 k/uL (0-0.7); Eosinophils % (A) 1 %; HGB 12.6 gm/dL (11.4-16.0); Lymphocytes % (A) 11 %; MCH 32.1 pg (25.0-35.0); MCHC 32.3 g/dL (31.0-37.0); MCV 99.4 fL (80.0-100.0); Mean Platelet Volume 8.1; Monocytes # (A) 0.6 k/uL (0-1.0); Monocytes % (A) 6 %; Neutrophils # (A) 7.7 k/uL (1.3-7.7); Neutrophils % (A) 81 %; Platelet Count 187 k/uL (150-450); RBC 3.92 m/uL (3.80-5.40); RDW 12.4 % (11.5-15.5); WBC 9.5 k/uL (3.8-10.6)
[2023-03-31 12:50] LABS: ALT 9 U/L (4-34); AST 20 U/L (14-36); African American GFR (CKD) 60 (>60 ml/min/1.73 sqM); Albumin 3.5 g/dL (3.5-5.0); Alkaline Phosphatase 125 U/L (38-126); Anion Gap 9 mmol/L; Blood Urea Nitrogen 23 mg/dL (7-17); Calcium 9.3 mg/dL (8.4-10.2); Carbon Dioxide 22 mmol/L (22-30); Chloride 110 mmol/L (98-107); Glucose 91 mg/dL (74-99); Non-African American GFR(CKD) 52 (>60 ml/min/1.73 sqM); Potassium 4.6 mmol/L (3.5-5.1); Sodium 141 mmol/L (137-145); Total Bilirubin 0.9 mg/dL (0.2-1.3); Total Protein 6.6 g/dL (6.3-8.2)
--- NOTE | 2023-03-31 15:57 | P.CNNES ---
History of Present Illness Consult date: 03/31/23 Requesting physician: Rodney Gonzalez Reason for Consult: Altered mental status History of Present Illness: Patient is a 82-year-old female came to the hospital by ambulance yesterday at 4:18 PM for altered mental status. Patient is extremely confused, not able to provide any history. The nursing staff does not know any more details. As per EMS flowsheet when they arrived, patient was in care of the family. Per family report, patient experienced a fall 3 days ago. No loss of consciousness noted previous to the fall. Patient does not take any blood thinners, no injuries were noted related to the fall. Today patient was found with altered mental status, unable to follow commands. Family also noticed that patient has increasingly dark urine. Patient was alert to painful stimuli but speaking incoherently. Patient was warm to touch. Patient unable to answer questions or follow commands. Patient would scream in pain when touched and becomes agitated. Patient was unable to follow commands in route to the hospital. Patient's vitals at the scene was blood pressure 127/80 pulse rate 100 respiration 20 saturation 97% and blood sugar 138. Axillary temperature 101.1. Vitals on arrival Tmax 101.2. Blood pressure 157/91, pulse rate 103. Saturation 94%. Blood test shows normal CBC PT PTT, normal electrolytes, BUN 26 creatinine 1.28. Lactate 3.1. AST and ALT are normal. UA negative. Influenz a, RSV and coronavirus PCR negative. EKG shows sinus tachycardia. CT head revealed no acute intracranial process. The ventricles are enlarged, out of proportion to the sulcal pattern/basal cisterns, which can correlate with clinical diagnosis of NPH. I personally reviewed CT head, agree with the findings. The amount of ventricular dilation is slightly more than the amount of cortical atrophy. CT of the cervical spine showed no acute fracture or dislocation evident in the cervical spine. Multilevel advanced cervical spondylosis changes are noted. Pelvic x-ray showed no definite displaced fracture or malalignment on the single AP pelvic radiograph. Visualized bilateral prostheses are intact. EKG shows sinus tachycardia. X-ray of the shoulder, left revealed moderate osteoarthrosis changes noted in the acromioclavicular and glenohumeral joints. No acute fracture or malalignment. Chest x-ray cannot exclude pneumothorax or other abnormal gas collections. Repeat chest x-ray performed today revealed bilateral areas of consolidation, or this represents atelectasis. Home medications include levothyroxine, Pepcid, aspirin 81 mg, metoprolol, Seroquel 100 mg at bedtime and Oark. Patient at present denies any headache, but then later said he has "little bit". Patient is hallucinating, very confused as per examination below. Patient has been started on ampicillin, vancomycin and Rocephin. Per nurse report, she lives with her kids. Patient admits to having no diabetes. Review of Systems ROS unobtainable: due to mental status (Thank) Past Medical History Past Medical History: Osteoarthritis (OA), Thyroid Disorder Additional Past Medical History / Comment(s): arthritis History of Any Multi-Drug Resistant Organisms: None Reported Past Surgical History: Appendectomy, Back Surgery Additional Past Surgical History / Comment(s): 07/2021 R hip IM nail for fracture, left hip maykel. Past Anesthesia/Blood Transfusion Reactions: No Reported Reaction Additional Past Anesthesia/Blood Transfusion Reaction / Comment(s): Pt has clausterphobia Past Psychological History: No Psychological Hx Reported Smoking Status: Never smoker Past Alcohol Use History: Occasional Past Drug Use History: None Reported - Past Family History Father Family Medical History: No Reported History Additional Family Medical History / Comment(s): father was healthy Mother Family Medical History: Unable to Obtain Additional Family Medical History / Comment(s): Pt unable to recall mother's medical history Medications and Allergies Home Medications Medication Instructions Recorded Confirmed Type Levothyroxine Sodium [Synthroid] 150 mcg PO DAILY 07/24/21 03/30/23 History Famotidine [Pepcid] 20 mg PO BID #20 tablet 04/15/22 03/30/23 Rx Aspirin EC [Ecotrin Low Dose] 81 mg PO DAILY 03/30/23 03/30/23 History HYDROcodone/APAP 5-325MG [Oark 1 tab PO BID PRN 03/30/23 03/30/23 History 5-325] Metoprolol Succinate (ER) [Toprol 50 mg PO BID 03/30/23 03/30/23 History Xl] QUEtiapine [SEROquel] 100 mg PO HS 03/30/23 03/30/23 History Allergies Allergy/AdvReac Type Severity Reaction Status Date / Time No Known Allergies Allergy Verified 06/10/22 11:10 Physical Examination - Vital Signs Vital Signs: Vital Signs Temp Pulse Resp BP Pulse Ox 03/31/23 11:00 95 20 137/85 95 03/31/23 08:38 98 F 108 H 20 139/87 96 03/31/23 06:00 97 17 114/84 95 03/31/23 05:33 98.6 F 03/31/23 05:22 92 18 126/69 92 L 03/31/23 00:07 94 17 105/69 92 L 03/30/23 19:54 94 17 109/61 95 03/30/23 18:52 100.3 F H 95 18 102/53 98 03/30/23 17:38 101.2 F H 111 H 20 152/97 94 L 03/30/23 16:50 97.7 F 103 H 20 157/91 94 L 03/30/23 16:36 100.5 F H 20 157/91 Intake and Output 03/30/23 03/31/23 03/31/23 22:59 06:59 14:59 Output Total 250 Balance -250 Output: Urine 250 Straight 250 Other: Weight 81.647 kg Patient is an elderly female, who is alert and awake, but acutely delirious, very confused. Patient is smiling, laughing, with dry chapped lips. She is hallucinating, saying random sentences like "I do not have money right now". "My dad was going to pick me up but he did not. That is where I stand now". Her speech is clear, with no obvious aphasia. Patient knows her full name, but could not tell me her date of or her age. She thinks it is "21". She could not tell the city of although she knows that she is in [facility]. Not tell name of the current president. Speech and language functions are normal. Patient can name "eyeglasses and knuckles" and repeat very well. No aphasia or dysarthria. Attention, concentration is severely impaired and fund of knowledge also very limited because of mentation. On cranial nerve examination, pupils are equal, round and reacting to light, visual ron could not be assessed reliably. Patient was able to see right side of the vision a little bit better than the left. However she was very inattentive. Face is symmetric, tongue protrudes to the midline. Palatal elevation and sensation normal, hearing appears to be somewhat decreased and shoulder shrug normal, facial sensation response not reliable. On muscle strength testing, there is no pronator drift. Patient has very minimal myoclonic jerk if at all. 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 Her deltoids are strong, but the left side is slightly weaker likely from arthritis. Patient able to lift her legs off the bed with resistance of at least 4+ bilaterally. She did not cooperate with ankle dorsiflexion although she is wiggling her feet bilaterally. Deep tendon reflexes are symmetric hypoactive, 1+ plantars withdrawal bilaterally. Sensory to touch cannot be assessed although patient does respond to painful stimuli equally.. Cerebellar function patient did not cooperate with the testing. Tone and bulk of muscles normal. Gait deferred.. On general examination, there is no carotid bruit or murmur, S1-S2 audible. Chest is clear on consultation. Abdomen is soft nontender. No organomegaly, bowel sounds present. Peripheral pulses are present. No peripheral edema. Results - Laboratory Findings CBC and BMP: 04/01/23 06:21 04/01/23 06:21 Abnormal Lab Findings: Abnormal Labs 03/30/23 03/30/23 03/30/23 17:13 17:13 17:13 Neutrophils # 8.5 H APTT 20.6 L BUN 26 H Creatinine 1.28 H Glucose 111 H Plasma Lactic Acid [place] Calcium 10.3 H Alkaline Phosphatase 148 H Urine Protein Urine Ketones Urine Blood Urine Mucus 03/30/23 03/30/23 17:13 17:13 Neutrophils # APTT BUN Creatinine Glucose Plasma Lactic Acid [place] 3.1 H* Calcium Alkaline Phosphatase Urine Protein Trace H Urine Ketones 1+ H Urine Blood Trace H Urine Mucus Rare H Assessment and Plan Assessment: * Altered mental status, possible toxic metabolic encephalopathy. Patient is delirious, hallucinating. * Possible pneumonia * Abnormal CT head, with evidence of prominence of ventricles, concerning for NPH. * Osteoarthritis * History of back surgery Plan: * EEG was performed today, which was abnormal due to background slowing of mild degree, suggestive of encephalopathy. No epileptiform activity was seen. * Patient probably has acute pneumonia. Patient currently on ampicillin, vancomycin and ceftriaxone. * Continue aspirin. * Patient has abnormal CT head, raising concern for possible NPH. * We will obtain collateral history from patient's family, to obtain history about any features of NPH. * Patient's B12 379 on 08/14/2021. We will repeat. * Neurology will follow. Thank you for the consult.
--- NOTE | 2023-03-31 16:53 | P.PN ---
Subjective Progress Note Date: 03/31/23 Hospital Course: 82-year-old female with history of hypertension, hypothyroidism presented for altered mentation and fall. Per EMS report, family had claimed the patient had a fall 3 days ago, and was becoming more encephalopathic, not eating and drinking very well, also has dark urine. Patient wanted further evaluation in the hospital. Unclear what the baseline is. Patient is a very poor historian. She was febrile up to 101.2, tachycardic 111, blood pressure stable, respiratory status stable, saturating well on room air. CBC unremarkable, creatinine elevated to 1.28, lactate 3.1, down trended to 1.2, calcium 10.3 down trended to 9.3, respiratory viral panel negative, UA showed negative nitrates and negative leukocyte esterase. X-rays did not show any fractures, CT head and cervical spine did not show any fractures or acute processes. She does have stable CT findings which could correlate with clinical diagnosis of NPH due to fevers, and no localizing source of infection, patient may have encephalitis/meningitis. Was started on IV antibiotics. Neurology was also consulted. Subjective: Patient seen and examined at bedside. No acute events overnight. Remains encephalopathic. Pertinent positives and negatives as discussed above, a complete review of systems was performed and all other systems are negative. Vitals Signs Reviewed. General: Nontoxic, no distress, appears at stated age Derm: Warm, dry Head: Atraumatic, normocephalic, symmetric Eyes: EOMI, no lid lag, anicteric sclera Mouth: No lip lesion, mucus membranes moist Cardiovascular: S1S2 reg, no murmur Lungs: CTA bilateral, no rhonchi, no rales, no accessory muscle use Abdominal: Soft, nontender to palpation, no guarding, no appreciable organomegaly Ext: No gross muscle atrophy, no edema, no contractures Neuro: Moving all extremities, no nuchal rigidity Psych: Alert, oriented x 1, not following commands Data Reviewed Today: Pertinent Labs: WBC 9.5, hemoglobin 12.6, platelet 187, potassium 4.6, c reatinine 1.09, glucose 91, lactate 1.2, calcium 9.3 Imaging: Chest x-ray independently interpreted from this morning, no focal opacities Assessment and Plan: Active: Sepsis, unclear source Possible meningitis versus encephalitis Acute encephalopathy, unclear baseline Possible NPH -Neurology note reviewed, EEG did not show any epileptiform discharges Blood cultures pending Patient already started on ampicillin 2 g IV every 6 hours, ceftriaxone 2 g IV every 24 hours, IV vancomycin, monitor for renal toxicity ID consulted Neurochecks Needs further clarification from family with regards to baseline mental status May need an LP and with opening pressure, will stop aspirin Resolved: Lactic acidosis Acute kidney injury Hypercalcemia Chronic: Hypothyroidism Hypertension DVT ppx: SCDs Code status: Full code Anticipated discharge place: Pending clinical course Anticipated discharge time: Pending clinical course Objective - Vital Signs Vital signs: Vital Signs Temp 98.9 F 03/31/23 14:45 Pulse 95 03/31/23 14:45 Resp 20 03/31/23 14:45 BP 126/78 03/31/23 14:45 Pulse Ox 94 L 03/31/23 14:45 FiO2 Intake & Output 03/30/23 03/31/23 03/31/23 18:59 06:59 18:59 Intake Total 300 Output Total 250 Balance -250 300 Weight 81.647 kg Intake: IV 300 Sodium Chloride 0.9% 1, 300 000 ml @ 75 mls/hr IV . [id number] [facility] Rx#:[id number] Output: Urine 250 Straight 250 Other: Voiding Method External Catheter - Labs CBC & Chem 7: 03/31/23 11:34 03/31/23 11:34 Labs: Abnormal Lab Results - Last 24 Hours (Table) 03/30/23 03/30/23 03/30/23 Range/Units 17:13 17:13 17:13 Neutrophils # 8.5 H (1.3-7.7) k/uL APTT 20.6 L (22.0-30.0) sec Chloride (98-107) mmol/L BUN 26 H (7-17) mg/dL Creatinine 1.28 H (0.52-1.04) mg/dL Glucose 111 H (74-99) mg/dL Plasma Lactic Acid [place] (0.7-2.0) mmol/L Calcium 10.3 H (8.4-10.2) mg/dL Alkaline Phosphatase 148 H (38-126) U/L Urine Protein (Negative) Urine Ketones (Negative) Urine Blood (Negative) Urine Mucus (None) /hpf 03/30/23 03/30/23 03/31/23 Range/Units 17:13 17:13 11:34 Neutrophils # (1.3-7.7) k/uL APTT (22.0-30.0) sec Chloride 110 H (98-107) mmol/L BUN 23 H (7-17) mg/dL Creatinine (0.52-1.04) mg/dL Glucose (74-99) mg/dL Plasma Lactic Acid [place] 3.1 H* (0.7-2.0) mmol/L Calcium (8.4-10.2) mg/dL Alkaline Phosphatase (38-126) U/L Urine Protein Trace H (Negative) Urine Ketones 1+ H (Negative) Urine Blood Trace H (Negative) Urine Mucus Rare H (None) /hpf
--- NOTE | 2023-03-31 22:01 | EEG ---
ELECTROENCEPHALOGRAM REPORT PREAMBLE: This is an 82-year-old female with altered mental status. EEG FINDINGS: This is a 21-channel digital EEG recorded with video component, utilizing 10/20 international system with referential and bipolar montages. Background consists of well-developed, moderately well regulated, mixed frequencies of 7 hertz theta, with 8 hertz alpha activity seen in bihemispheric region. Background is posterior dominant and seems to be reactive to eye opening and closing. Some myogenic activity was seen in the frontal region with eye blink artifacts. Different stages of sleep were not seen. No focal or generalized epileptiform activity was seen. IMPRESSION: This is an abnormal EEG due to background slowing, suggestive of mild encephalopathy. No focal, lateralized or epileptiform activity was seen. MMODL / IJN: [id number] /
[2023-03-31] MEDS: ACETAMINOPHEN TAB 325 MG TAB PO PRN (23:42)
[2023-04-01] MEDS: VANCOMYCIN 1,500 MG in SODIUM CHLORIDE 0.9% 500 ML 500 ML IVPB SCH (06:24)
[2023-04-01 06:53] LABS: African American GFR (CKD) 63 (>60 ml/min/1.73 sqM); Anion Gap 4 mmol/L; Blood Urea Nitrogen 22 mg/dL (7-17); Calcium 8.8 mg/dL (8.4-10.2); Carbon Dioxide 24 mmol/L (22-30); Chloride 110 mmol/L (98-107); Glucose 118 mg/dL (74-99); Magnesium 1.1 mg/dL (1.6-2.3); Non-African American GFR(CKD) 54 (>60 ml/min/1.73 sqM); Sodium 138 mmol/L (137-145)
[2023-04-01 08:46] LABS: Basophils # (A) 0.04 X 10*3/uL (0.00-0.10); Basophils % (A) 0.4 %; Eosinophils # (A) 0.09 X 10*3/uL (0.04-0.35); HCT 34.4 % (37.2-46.3); Lymphocytes % (A) 12.9 %; MCH 32.3 pg (27.0-32.0); MCV 100.9 FL (80.0-97.0); Monocytes # (A) 1.23 X 10*3/uL (0.20-1.00); Monocytes % (A) 13.2 %; NRBC Per 100 WBC 0 X 10*3/uL (0.00-0.01); Neutrophils # (A) 6.72 X 10*3/uL (1.80-7.70); Platelet Count 165 X 10*3/uL (140-440); RBC 3.41 X 10*6/uL (4.10-5.20); RDW 12.7 % (11.5-14.5); WBC 9.33 X 10*3/uL (4.50-10.00)
[2023-04-01] MEDS: MAGNESIUM SULFATE-D5W PMX 1 GM in DEXTROSE/WATER 1 100ML.BAG IVPB SCH (10:50)
[2023-04-01] MEDS: IBUPROFEN 400 MG TAB PO PRN (10:54)
[2023-04-01] MEDS ORDERED: VANCOMYCIN IV PER PHARMACY 1 EACH MISC MISCELLANE PRN (12:02)
--- NOTE | 2023-04-01 12:06 | P.PN ---
Subjective Progress Note Date: 04/01/23 Hospital Course: 82-year-old female with history of hypertension, hypothyroidism presented for altered mentation and fall. Per EMS report, family had claimed the patient had a fall 3 days ago, and was becoming more encephalopathic, not eating and drinking very well, also has dark urine. Patient wanted further evaluation in the hospital. Unclear what the baseline is. Patient is a very poor historian. She was febrile up to 101.2, tachycardic 111, blood pressure stable, respiratory status stable, saturating well on room air. CBC unremarkable, creatinine elevated to 1.28, lactate 3.1, down trended to 1.2, calcium 10.3 down trended to 9.3, respiratory viral panel negative, UA showed negative nitrates and negative leukocyte esterase. X-rays did not show any fractures, CT head and cervical spine did not show any fractures or acute processes. She does have stable CT findings which could correlate with clinical diagnosis of NPH due to fevers, and no localizing source of infection, patient may have encephalitis/meningitis. Was started on IV antibiotics. Neurology was also consulted. Blood cultures positive for GPC's in clusters, growing strep epi in 2/2 bottles. Repeat blood cultures pending. Subjective: Patient seen and examined at bedside. No acute events overnight. Encephal opathy improved. Pertinent positives and negatives as discussed above, a complete review of systems was performed and all other systems are negative. Vitals Signs Reviewed. General: Nontoxic, no distress, appears at stated age Derm: Warm, dry Head: Atraumatic, normocephalic, symmetric Eyes: EOMI, no lid lag, anicteric sclera Mouth: No lip lesion, mucus membranes moist Cardiovascular: S1S2 reg, no murmur Lungs: CTA bilateral, no rhonchi, no rales, no accessory muscle use Abdominal: Soft, nontender to palpation, no guarding, no appreciable organomegaly Ext: No gross muscle atrophy, no edema, no contractures Neuro: Moving all extremities, no nuchal rigidity Psych: Alert, oriented x 1, not following commands Data Reviewed Today: Pertinent Labs: WBC 9.33, hemoglobin 11, creatinine 0.98, glucose 118, magnesium 1.1 Imaging: No new imaging Assessment and Plan: Patient is severely ill, needs close monitoring. Prognosis guarded Active: Sepsis, unclear source Strep epi bacteremia Possible meningitis versus encephalitis Acute encephalopathy, unclear baseline, seems to be resolving Possible NPH -Neurology note reviewed, EEG did not show any epileptiform discharges Repeat cultures pending Unsure if blood cultures are contaminant, continue IV ceftriaxone 2 g every 24 hours, IV vancomycin, monitor for renal toxicity ID consulted, pending recommendations Neurochecks Needs further clarification from family with regards to baseline mental status May need an LP and with opening pressure, will stop aspirin -Repeat CBC and BMP tomorrow Hypomagnesemia -4 g IV mag sulfate ordered -Repeat magnesium tomorrow Resolved: Lactic acidosis Acute kidney injury Hypercalcemia Chronic: Hypothyroidism Hypertension DVT ppx: SCDs Code status: Full code Anticipated discharge place: Pending clinical course Anticipated discharge time: Pending clinical course Objective - Vital Signs Vital signs: Vital Signs Temp 97.8 F 04/01/23 07:00 Pulse 74 04/01/23 07:00 Resp 18 04/01/23 08:00 BP 116/64 04/01/23 07:00 Pulse Ox 98 04/01/23 07:00 FiO2 Intake & Output 03/31/23 04/01/23 04/01/23 18:59 06:59 18:59 Intake Total 300 Output Total 700 Balance 300 -700 Weight 81.647 kg Intake: IV 300 Sodium Chloride 0.9% 1, 300 000 ml @ 75 mls/hr IV . [id number] [facility] Rx#:[id number] Output: Urine 700 Other: Voiding Method External Catheter External Catheter External Catheter # Voids 1 - Labs CBC & Chem 7: 04/01/23 06:21 04/01/23 06:21 Labs: Abnormal Lab Results - Last 24 Hours (Table) 03/31/23 04/01/23 04/01/23 Range/Units 11:34 06:21 06:21 RBC 3.41 L (4.10-5.20) X 10*6/uL Hgb 11.0 L (12.0-15.0) g/dL Hct 34.4 L (37.2-46.3) % MCV 100.9 H (80.0-97.0) FL MCH 32.3 H (27.0-32.0) pg Immature Gran # 0.05 H (0.00-0.04) X 10*3/uL Monocytes # 1.23 H (0.20-1.00) X 10*3/uL Chloride 110 H 110 H (98-107) mmol/L BUN 23 H 22 H (7-17) mg/dL Glucose 118 H (74-99) mg/dL Magnesium 1.1 L (1.6-2.3) mg/dL Microbiology - Last 24 Hours (Table) 03/30/23 17:15 Blood Culture Gram Stain - Preliminary Blood 03/30/23 17:30 Blood Culture Gram Stain - Preliminary Blood
[2023-04-01 13:25] LABS: C Reactive Protein 16.8 mg/dL (<1.0)
[2023-04-01] MEDS: LIDOCAINE 1% INJ 10MG/ML (20 ML MDV) IV STA (20:26)
[2023-04-01 21:56] LABS: Appearance,CSF Clear; CSF Tube Number 4
[2023-04-01 22:10] LABS: Glucose,CSF 77 mg/dL (40-70); Total Protein,CSF 55 mg/dL (12-60)
[2023-04-01 22:11] LABS: Nucleated Cells, CSF 1 u/L (0-5); Red Blood Cell,CSF 1 u/L (0-10)
[2023-04-02 08:33] LABS: Basophils # (A) 0.03 X 10*3/uL (0.00-0.10); Basophils % (A) 0.4 %; Eosinophils # (A) 0.23 X 10*3/uL (0.04-0.35); Eosinophils % (A) 2.9 %; HCT 31.6 % (37.2-46.3); HGB 10.3 g/dL (12.0-15.0); Lymphocytes # (A) 1.06 X 10*3/uL (0.90-5.00); Lymphocytes % (A) 13.4 %; MCH 31.7 pg (27.0-32.0); MCHC 32.6 g/dL (32.0-37.0); MCV 97.2 FL (80.0-97.0); Mean Platelet Volume 11.1 FL (9.5-12.2); Monocytes # (A) 0.87 X 10*3/uL (0.20-1.00); NRBC Per 100 WBC 0 X 10*3/uL (0.00-0.01); Neutrophils # (A) 5.71 X 10*3/uL (1.80-7.70); Platelet Count 161 X 10*3/uL (140-440); RBC 3.25 X 10*6/uL (4.10-5.20); RDW 12.8 % (11.5-14.5); WBC 7.92 X 10*3/uL (4.50-10.00)
--- NOTE | 2023-04-02 08:41 | P.CONS ---
History of Present Illness - Reason for Consult Consult date: 04/01/23 - History of Present Illness Patient is a 82-year-old female with a past medical history significant for osteoarthritis hypothyroidism patient was brought to the hospital 2 days ago for evaluation of mental status changes patient was found in the bed by the family and apparently did have a fall 3 days prior to the patient was brought to the hospital with no reported injury patient on presentation to the hospital did have a fever 100.5 F and subsequently did have temperature of 101.2 F on 03/30/2023 no fever on the last 48 hours patient was not tachycardic or hypotensive she was hypoxic currently on a 3 L nasal cannula oxygen patient did have a white count of 9.5 BUN mildly elevated creatinine was normal liver enzymes are normal urine has been negative influenza RSV COVID testing was negative patient did have a chest x-ray General x-ray pneumothorax oral abnormal gas collection repeat chest x-ray bilateral areas of consolidation on this represent atelectasis patient has been on ceftriaxone blood cultures came back positive with 2 out of 2 staph epi with MAC genes detected vancomycin was added infectious he was consulted for further management of antibiotic therapy, most information has been extended from review the chart as the patient herself is not a very good historian and specifically what any headache. Denied she was not aware of where she is denies having any URI symptoms no chest pain or shortness of breath did have some cough no vomiting or diarrhea has been reported Past Medical History Past Medical History: Osteoarthritis (OA), Thyroid Disorder Additional Past Medical History / Comment(s): arthritis History of Any Multi-Drug Resistant Organisms: None Reported Past Surgical History: Appendectomy, Back Surgery Additional Past Surgical History / Comment(s): 07/2021 R hip IM nail for fracture, left hip maykel. Past Anesthesia/Blood Transfusion Reactions: No Reported Reaction Additional Past Anesthesia/Blood Transfusion Reaction / Comm: Pt has clausterphobia Past Psychological History: No Psychological Hx Reported Additional Psychological History / Comment(s): Pt resides with her son and [id number]. Pt's daughter in law states that pt hasn't walked since 03/23. Smoking Status: Unknown if ever smoked Past Alcohol Use History: Occasional Past Drug Use History: None Reported - Past Family History Father Family Medical History: No Reported History Additional Family Medical History / Comment(s): father was healthy Mother Family Medical History: Unable to Obtain Additional Family Medical History / Comment(s): Pt unable to recall mother's medical history Medications and Allergies Home Medications Medication Instructions Recorded Confirmed Type Levothyroxine Sodium [Synthroid] 150 mcg PO DAILY 07/24/21 03/30/23 History Famotidine [Pepcid] 20 mg PO BID #20 tablet 04/15/22 03/30/23 Rx Aspirin EC [Ecotrin Low Dose] 81 mg PO DAILY 03/30/23 03/30/23 History HYDROcodone/APAP 5-325MG [Stilwell 1 tab PO BID PRN 03/30/23 03/30/23 History 5-325] Metoprolol Succinate (ER) [Toprol 50 mg PO BID 03/30/23 03/30/23 History Xl] QUEtiapine [SEROquel] 100 mg PO HS 03/30/23 03/30/23 History Allergies Allergy/AdvReac Type Severity Reaction Status Date / Time No Known Allergies Allergy Verified 06/10/22 11:10 Physical Exam Vitals: Vital Signs Temp Pulse Pulse Pulse Resp BP BP 04/01/23 07:00 97.8 F 74 18 116/64 04/01/23 02:00 98.3 F 83 18 144/76 03/31/23 22:00 99.0 F 104 H 16 166/81 03/31/23 21:00 105 H 19 115/77 03/31/23 20:00 105 H 24 115/77 03/31/23 14:45 98.9 F 95 20 126/78 03/31/23 11:00 95 20 137/85 Pulse Ox 04/01/23 07:00 98 04/01/23 02:00 97 03/31/23 22:00 98 03/31/23 21:00 100 03/31/23 20:00 92 L 03/31/23 14:45 94 L 03/31/23 11:00 95 Intake and Output 03/31/23 04/01/23 04/01/23 22:59 06:59 14:59 Output Total 700 Balance -700 Output: Urine 700 Other: Voiding Method External Catheter # Voids 1 Weight 81.647 kg Results CBC & Chem 7: 04/02/23 05:42 04/01/23 06:21 Labs: Abnormal Lab Results - Last 24 Hours (Table) 03/31/23 04/01/2304/01/24 Range/Units 11:34 06:21 06:21 RBC 3.41 L (4.10-5.20) X 10*6/uL Hgb 11.0 L (12.0-15.0) g/dL Hct 34.4 L (37.2-46.3) % MCV 100.9 H (80.0-97.0) FL MCH 32.3 H (27.0-32.0) pg Immature Gran # 0.05 H (0.00-0.04) X 10*3/uL Monocytes # 1.23 H (0.20-1.00) X 10*3/uL Chloride 110 H 110 H (98-107) mmol/L BUN 23 H 22 H (7-17) mg/dL Glucose 118 H (74-99) mg/dL Magnesium 1.1 L (1.6-2.3) mg/dL Microbiology - Last 24 Hours (Table) 03/30/23 17:15 Blood Culture Gram Stain - Preliminary Blood 03/30/23 17:30 Blood Culture Gram Stain - Preliminary Blood Assessment and Plan Plan: 1patient is in the hospital mental status changes patient also have a fever on presentation to the hospital patient initial workup has been negative chest x- ray has been suggestive of some basilar consolidation and a question of possible atelectasis abdominal soft on clinical examination, patient benefit from LP to rule out BROILER CHEF OR COOK infection this has been discussed with the neurologist 2-patient also have a positive blood culture 2 out of 2 with staph epi with a question of possible skin contamination as the patient has no clinical disease to go along with it 3-blood cultures will be document clearance of bacteremia check inflammatory markers 4-continue with Rocephin and vancomycin while waiting for the workup to be com pleted We will follow on clinical condition and cultures to further adjust medication if needed Thank you for this consultation we will follow the patient along with you Dictation was produced using [employer] dictation software. please excuse any grammatical, word or spelling errors. Time with Patient: Greater than 30
[2023-04-02 08:49] LABS: ALT 6 U/L (8-44); AST 13 U/L (13-35); Albumin 3.2 g/dL (3.8-4.9); Albumin/Globulin Ratio 1.39 Ratio (1.60-3.17); Alkaline Phosphatase 102 U/L (41-126); Blood Urea Nitrogen 21.9 mg/dL (9.0-27.0); Calcium 9.1 mg/dL (8.7-10.3); Carbon Dioxide 22.3 mmol/L (21.6-31.8); Chloride 106 mmol/L (96-109); Globulin 2.3 g/dL (1.6-3.3); Glucose 105 mg/dL (70-110); Potassium 3.9 mmol/L (3.5-5.5); Sodium 141 mmol/L (135-145); Total Bilirubin 0.3 mg/dL (0.3-1.2); Total Protein 5.5 g/dL (6.2-8.2)
--- NOTE | 2023-04-02 09:40 | P.PN ---
Subjective Progress Note Date: 04/01/23 Patient was seen for a follow-up. Patient denies headache. She is slightly confused, as she believes that Mr. Grajeda invited her. She had time rambles, but other times speaks sensical. Objective - Vital Signs Vital signs: Vital Signs Temp 97.8 F 04/01/23 07:00 Pulse 74 04/01/23 07:00 Resp 18 04/01/23 08:00 BP 116/64 04/01/23 07:00 Pulse Ox 98 04/01/23 07:00 FiO2 Intake & Output 03/31/23 04/01/23 04/01/23 18:59 06:59 18:59 Intake Total 300 Output Total 700 Balance 300 -700 Weight 81.647 kg Intake: IV 300 Sodium Chloride 0.9% 1, 300 000 ml @ 75 mls/hr IV . [id number] [facility] Rx#:[id number] Output: Urine 700 Other: Voiding Method External Catheter External Catheter External Catheter # Voids 1 - Exam Examination remains unchanged. Patient is sitting comfortably in the bed. - Labs CBC & Chem 7: 04/02/23 05:42 04/02/23 05:42 Labs: Abnormal Lab Results - Last 24 Hours (Table) 03/31/23 04/01/23 04/01/23 Range/Units 11:34 06:21 06:21 RBC 3.41 L (4.10-5.20) X 10*6/uL Hgb 11.0 L (12.0-15.0) g/dL Hct 34.4 L (37.2-46.3) % MCV 100.9 H (80.0-97.0) FL MCH 32.3 H (27.0-32.0) pg Immature Gran # 0.05 H (0.00-0.04) X 10*3/uL Monocytes # 1.23 H (0.20-1.00) X 10*3/uL Chloride 110 H 110 H (98-107) mmol/L BUN 23 H 22 H (7-17) mg/dL Glucose 118 H (74-99) mg/dL Magnesium 1.1 L (1.6-2.3) mg/dL Microbiology - Last 24 Hours (Table) 03/30/23 17:15 Blood Culture Gram Stain - Preliminary Blood 03/30/23 17:30 Blood Culture Gram Stain - Preliminary Blood Assessment and Plan Assessment: * Altered mental status, possible toxic metabolic encephalopathy. Patient is delirious, hallucinating. Rule out encephalitis. * Possible pneumonia * Normal pressure hydrocephalus * Osteoarthritis * History of back surgery Plan: * I spoke to patient's daughter on the phone. She mentioned that patient was diagnosed with normal pressure hydrocephalus 2 years ago when she was age 80. Patient follows up with Dr. Neal. He referred patient to a neurosurgeon, who did not recommend ventriculoperitoneal shunting because of her age. It appears her NPH may have got worse. Patient is healthy otherwise. Patient's daughter mentioned that on Thursday night, she was using a walker and fell. She was able to get up and had dinner and then went to bed. On Thursday (day of admission), she was "loopy" and later appeared "out of it". Patient's daughter believed it was a UTI, although she states the same thing happened when she had hydrocephalus 2 years ago. * After discussing with patient's daughter, she consented for diagnostic and therapeutic lumbar puncture. Risk and benefits were informed to the patient's daughter. * EEG 03/31/2023 was abnormal due to background slowing of mild degree, suggestive of encephalopathy. No epileptiform activity was seen. * Patient probably has acute pneumonia. Patient currently on ampicillin, vancomycin and ceftriaxone. * Continue aspirin. * Patient has abnormal CT head, raising concern for possible NPH. * B12 1012, folate 14.40, TSH is 0.024 with free T4 normal 2.0. Will defer to IM to address abnormal thyroid functions.
[2023-04-02] MEDS: ENOXAPARIN 40 MG/0.4 ML SYRINGE SQ SCH (10:01)
--- NOTE | 2023-04-02 15:18 | P.PN ---
Subjective Progress Note Date: 04/02/23 Principal diagnosis: Reason for follow-up is fever likely pneumonia and positive blood culture Patient is a 82-year-old female with a past medical history significant for osteoarthritis hypothyroidism patient was brought to the hospital for evaluation of mental status changes patient also noticed to be febrile there was concern for some bibasilar infiltrate patient also have LP completed on 04/01/2023 that was negative. On today's evaluation that is 04/02/2023,the patient is afebrile, patient more awake and alert today and is breathing comfortably on 3 L nasal cannula oxygen denies any chest pain no worsening cough no vomiting or diarrhea has been reported. Patient did have white count of 7.92, creatinine is 1.0, blood culture with 2 out of 2 coagulase-negative staph Objective - Vital Signs Vital signs: Vital Signs Temp 98 F 04/02/23 15:00 Pulse 73 04/02/23 15:00 Resp 15 04/02/23 15:00 BP 150/74 04/02/23 15:00 Pulse Ox 90 L 04/02/23 15:00 FiO2 Intake & Output 04/01/23 04/02/23 04/02/23 18:59 06:59 18:59 Intake Total 550 420 Output Total 900 Balance 550 -900 420 Intake: Oral 550 420 Output: Urine 900 Straight 900 Other: Voiding Method External Catheter External Catheter # Bowel Movements 0 - Exam GENERAL DESCRIPTION: An elderly female lying in bed in no distress RESPIRATORY SYSTEM: Unlabored breathing , decreased breath sounds at bases HEART: S1 S2 regular rate and rhythm , ABDOMEN: Soft , no tenderness EXTREMITIES: No edema feet - Labs CBC & Chem 7: 04/02/23 05:42 04/02/23 05:42 Labs: Abnormal Lab Results - Last 24 Hours (Table) 04/01/23 04/01/23 04/02/23 Range/Units 06:21 20:28 05:42 RBC 3.25 L (4.10-5.20) X 10*6/uL Hgb 10.3 L (12.0-15.0) g/dL Hct 31.6 L (37.2-46.3) % MCV 97.2 H (80.0-97.0) FL Anion Gap (4.00-12.00) mmol/L Est GFR (CKD-EPI) (>=60) BUN/Creatinine Ratio (12.00-20.00) Ratio ALT (8-44) U/L Total Protein (6.2-8.2) g/dL Albumin (3.8-4.9) g/dL Albumin/Globulin Ratio (1.60-3.17) Ratio Vitamin B12 1012.0 H (200.0-944.0) pg/mL CSF Glucose 77 H (40-70) mg/dL 04/02/23 Range/Units 05:42 RBC (4.10-5.20) X 10*6/uL Hgb (12.0-15.0) g/dL Hct (37.2-46.3) % MCV (80.0-97.0) FL Anion Gap 12.70 H (4.00-12.00) mmol/L Est GFR (CKD-EPI) 57 L (>=60) BUN/Creatinine Ratio 21.90 H (12.00-20.00) Ratio ALT 6 L (8-44) U/L Total Protein 5.5 L (6.2-8.2) g/dL Albumin 3.2 L (3.8-4.9) g/dL Albumin/Globulin Ratio 1.39 L (1.60-3.17) Ratio Vitamin B12 (200.0-944.0) pg/mL CSF Glucose (40-70) mg/dL Microbiology - Last 24 Hours (Table) 03/30/23 17:30 Blood Culture Gram Stain - Final Blood Blood Culture - Final Coagulase Negative Staph Coagulase Negative Staph#2 03/30/23 17:15 Blood Culture Gram Stain - Final Blood Blood Culture - Final Coagulase Negative Staph Coagulase Negative Staph#2 04/01/23 20:28 CSF Gram Stain - Preliminary Cerebral Spinal Fluid 03/30/23 17:10 Urine Culture - Final Urine,Voided Assessment and Plan (1) Fever Current Visit: Yes Status: Acute Code(s): R50.9 - FEVER, UNSPECIFIED SN OMED Code(s): 839025182 (2) Pneumonia Current Visit: Yes Status: Acute Code(s): J18.9 - PNEUMONIA, UNSPECIFIED ORGANISM SNOMED Code(s): 819618238 (3) Positive blood culture Current Visit: Yes Status: Acute Code(s): R78.81 - BACTEREMIA SNOMED Code(s): 962416308 Plan: 1patient is in the hospital mental status changes patient also have a fever on presentation to the hospital patient initial workup has been negative chest x- ray has been suggestive of some basilar consolidation and a question of possible atelectasis abdominal soft on clinical examination, patient did have FAMILY CONSULTANT there was negative 2-patient also have a positive blood culture 2 out of 2 with staph epi likely skin contamination 3-blood cultures has been repeated clearance of bacteremia 4-patient to continue with Rocephin however will discontinue vancomycin Dictation was produced using [employer] dictation software. please excuse any grammatical, word or spelling errors. Time with Patient: Less than 30
--- NOTE | 2023-04-02 17:11 | P.PN ---
Subjective Progress Note Date: 04/02/23 Hospital Course: 82-year-old female with history of hypertension, hypothyroidism presented for altered mentation and fall. Per EMS report, family had claimed the patient had a fall 3 days ago, and was becoming more encephalopathic, not eating and drinking very well, also has dark urine. Patient wanted further evaluation in the hospital. Unclear what the baseline is. Patient is a very poor historian. She was febrile up to 101.2, tachycardic 111, blood pressure stable, respiratory status stable, saturating well on room air. CBC unremarkable, creatinine elevated to 1.28, lactate 3.1, down trended to 1.2, calcium 10.3 down trended to 9.3, respiratory viral panel negative, UA showed negative nitrates and negative leukocyte esterase. X-rays did not show any fractures, CT head and cervical spine did not show any fractures or acute processes. She does have stable CT findings which could correlate with clinical diagnosis of NPH due to fevers, and no localizing source of infection, patient may have encephalitis/meningitis. Was started on IV antibiotics. Neurology was also consulted. Blood cultures positive for GPC's in clusters, growing strep epi in 2/2 bottles. Repeat blood cultures pending. Subjective: No new complaints today. Pt remains quite encephalopathic. BCx growing two species of staph epi Vitals Signs Reviewed. General: Nontoxic, no distress, appears at stated age Derm: Warm, dry Head: Atraumatic, normocephalic, symmetric Eyes: EOMI, no lid lag, anicteric sclera Mouth: No lip lesion, mucus membranes moist Cardiovascular: S1S2 reg, no murmur Lungs: CTA bilateral, no rhonchi, no rales, no accessory muscle use Abdominal: Soft, nontender to palpation, no guarding, no appreciable organomegaly Ext: No gross muscle atrophy, no edema, no contractures Neuro: Moving all extremities, no nuchal rigidity Psych: Alert, oriented x 1, not following commands Data Reviewed Today: Pertinent Labs: WBC 9.33, hemoglobin 11, creatinine 0.98, glucose 118, magnesium 1.1 Imaging: No new imaging Assessment and Plan: Patient is severely ill, needs close monitoring. Prognosis guarded Active: Sepsis, unclear source Strep epi bacteremia Possible meningitis versus encephalitis Acute encephalopathy, unclear baseline, seems to be resolving Possible NPH -Neurology note reviewed, EEG did not show any epileptiform discharges Repeat cultures pending Unsure if blood cultures are contaminant, continue IV ceftriaxone 2 g every 24 hours, IV vancomycin, monitor for renal toxicity ID consulted, pending recommendations Neurochecks Needs further clarification from family with regards to baseline mental status May need an LP and with opening pressure, will stop aspirin -Repeat CBC and BMP tomorrow Hypomagnesemia -4 g IV mag sulfate ordered -Repeat magnesium tomorrow Resolved: Lactic acidosis Acute kidney injury Hypercalcemia Chronic: Hypothyroidism Hypertension DVT ppx: SCDs Code status: Full code Anticipated discharge place: Pending clinical course Anticipated discharge time: Pending clinical course Objective - Vital Signs Vital signs: Vital Signs Temp 98 F 04/02/23 15:00 Pulse 73 04/02/23 15:00 Resp 15 04/02/23 15:00 BP 150/74 04/02/23 15:00 Pulse Ox 90 L 04/02/23 15:00 FiO2 Intake & Output 04/01/23 04/02/23 04/02/23 18:59 06:59 18:59 Intake Total 550 420 Output Total 900 468 Balance 550 -900 -48 Intake: Oral 550 420 Output: Urine 900 Straight 900 Post Void Residual 468 Other: Voiding Method External Catheter External Catheter # Voids 0 # Bowel Movements 0 - Labs CBC & Chem 7: 04/02/23 05:42 04/02/23 05:42 Labs: Abnormal Lab Results - Last 24 Hours (Table) 04/01/23 04/01/23 04/02/23 Range/Units 06:21 20:28 05:42 RBC 3.25 L (4.10-5.20) X 10*6/uL Hgb 10.3 L (12.0-15.0) g/dL Hct 31.6 L (37.2-46.3) % MCV 97.2 H (80.0-97.0) FL Anion Gap (4.00-12.00) mmol/L Est GFR (CKD-EPI) (>=60) BUN/Creatinine Ratio (12.00-20.00) Ratio ALT (8-44) U/L Total Protein (6.2-8.2) g/dL Albumin (3.8-4.9) g/dL Albumin/Globulin Ratio (1.60-3.17) Ratio Vitamin B12 1012.0 H (200.0-944.0) pg/mL CSF Glucose 77 H (40-70) mg/dL 04/02/23 Range/Units 05:42 RBC (4.10-5.20) X 10*6/uL Hgb (12.0-15.0) g/dL Hct (37.2-46.3) % MCV (80.0-97.0) FL Anion Gap 12.70 H (4.00-12.00) mmol/L Est GFR (CKD-EPI) 57 L (>=60) BUN/Creatinine Ratio 21.90 H (12.00-20.00) Ratio ALT 6 L (8-44) U/L Total Protein 5.5 L (6.2-8.2) g/dL Albumin 3.2 L (3.8-4.9) g/dL Albumin/Globulin Ratio 1.39 L (1.60-3.17) Ratio Vitamin B12 (200.0-944.0) pg/mL CSF Glucose (40-70) mg/dL Microbiology - Last 24 Hours (Table) 04/01/23 12:21 Blood Culture - Preliminary Blood 04/01/23 20:28 CSF Gram Stain - Preliminary Cerebral Spinal Fluid 03/30/23 17:30 Blood Culture Gram Stain - Final Blood Blood Culture - Final Coagulase Negative Staph Coagulase Negative Staph#2 03/30/23 17:15 Blood Culture Gram Stain - Final Blood Blood Culture - Final Coagulase Negative Staph Coagulase Negative Staph#2 03/30/23 17:10 Urine Culture - Final Urine,Voided
[2023-04-03] MEDS: VANCOMYCIN TROUGH DUE 1 EACH MISC MISCELLANE ONE (05:40)
[2023-04-03 06:13] LABS: African American GFR (CKD) 57 (>60 ml/min/1.73 sqM); Anion Gap 1 mmol/L; Blood Urea Nitrogen 19 mg/dL (7-17); Calcium 8.8 mg/dL (8.4-10.2); Carbon Dioxide 25 mmol/L (22-30); Chloride 113 mmol/L (98-107); Glucose 84 mg/dL (74-99); Magnesium 1.5 mg/dL (1.6-2.3); Non-African American GFR(CKD) 49 (>60 ml/min/1.73 sqM); Potassium 3.9 mmol/L (3.5-5.1); Sodium 139 mmol/L (137-145)
[2023-04-03 06:31] LABS: C Reactive Protein 16.1 mg/dL (<1.0)
[2023-04-03 08:33] LABS: HCT 28.8 % (37.2-46.3); HGB 9.3 g/dL (12.0-15.0); MCH 31.7 pg (27.0-32.0); MCHC 32.3 g/dL (32.0-37.0); MCV 98.3 FL (80.0-97.0); Mean Platelet Volume 10.9 FL (9.5-12.2); NRBC Per 100 WBC 0 X 10*3/uL (0.00-0.01); Platelet Count 187 X 10*3/uL (140-440); RBC 2.93 X 10*6/uL (4.10-5.20); RDW 12.8 % (11.5-14.5); WBC 6.19 X 10*3/uL (4.50-10.00)
[2023-04-03 08:34] LABS: Basophils # (A) 0.04 X 10*3/uL (0.00-0.10); Basophils % (A) 0.6 %; Eosinophils # (A) 0.32 X 10*3/uL (0.04-0.35); Eosinophils % (A) 5.2 %; Lymphocytes # (A) 1.34 X 10*3/uL (0.90-5.00); Lymphocytes % (A) 21.6 %; Monocytes # (A) 0.65 X 10*3/uL (0.20-1.00); Monocytes % (A) 10.5 %; Neutrophils # (A) 3.82 X 10*3/uL (1.80-7.70); Neutrophils % (A) 61.8 %
--- NOTE | 2023-04-03 09:50 | P.PN ---
Subjective Progress Note Date: 04/02/23 Patient was seen for a follow-up. Patient is sitting comfortably in the recliner. Patient's daughter Cara was also present today. She believes patient is remarkably improved since she underwent lumbar puncture. Cara believes that patient is little more quadrant and feels she is about 90% back to baseline. Patient admits to having headache which she claims is quite severe. It is suspect post spinal headache. Patient has slow mentation. Objective - Vital Signs Vital signs: Vital Signs Temp 97.8 F 04/02/23 07:00 Pulse 86 04/02/23 07:00 Resp 16 04/02/23 07:00 BP 126/77 04/02/23 07:00 Pulse Ox 94 L 04/02/23 07:00 FiO2 Intake & Output 04/01/23 04/02/23 04/02/23 18:59 06:59 18:59 Intake Total 550 240 Output Total 900 Balance 550 -900 240 Intake: Oral 550 240 Output: Urine 900 Straight 900 Other: Voiding Method External Catheter External Catheter # Bowel Movements 0 - Exam Patient is alert and awake in no distress. Speech and language functions appears normal. Patient knows that it is [facility] but does not know the city. Could not tell the month or year, but patient's daughter believes that the family do not care about the month or the year and they do not keep track of it. Patient does not know name of the current president, only when she was prompted. - Labs CBC & Chem 7: 04/03/23 05:33 04/03/23 05:33 Labs: Abnormal Lab Results - Last 24 Hours (Table) 04/01/23 04/01/23 04/02/23 Range/Units 06:21 20:28 05:42 RBC 3.25 L (4.10-5.20) X 10*6/uL Hgb 10.3 L (12.0-15.0) g/dL Hct 31.6 L (37.2-46.3) % MCV 97.2 H (80.0-97.0) FL Anion Gap (4.00-12.00) mmol/L Est GFR (CKD-EPI) (>=60) BUN/Creatinine Ratio (12.00-20.00) Ratio ALT (8-44) U/L Total Protein (6.2-8.2) g/dL Albumin (3.8-4.9) g/dL Albumin/Globulin Ratio (1.60-3.17) Ratio Vitamin B12 1012.0 H (200.0-944.0) pg/mL CSF Glucose 77 H (40-70) mg/dL 04/02/23 Range/Units 05:42 RBC (4.10-5.20) X 10*6/uL Hgb (12.0-15.0) g/dL Hct (37.2-46.3) % MCV (80.0-97.0) FL Anion Gap 12.70 H (4.00-12.00) mmol/L Est GFR (CKD-EPI) 57 L (>=60) BUN/Creatinine Ratio 21.90 H (12.00-20.00) Ratio ALT 6 L (8-44) U/L Total Protein 5.5 L (6.2-8.2) g/dL Albumin 3.2 L (3.8-4.9) g/dL Albumin/Globulin Ratio 1.39 L (1.60-3.17) Ratio Vitamin B12 (200.0-944.0) pg/mL CSF Glucose (40-70) mg/dL Microbiology - Last 24 Hours (Table) 03/30/23 17:30 Blood Culture Gram Stain - Final Blood Blood Culture - Final Coagulase Negative Staph Coagulase Negative Staph#2 03/30/23 17:15 Blood Culture Gram Stain - Final Blood Blood Culture - Final Coagulase Negative Staph Coagulase Negative Staph#2 04/01/23 20:28 CSF Gram Stain - Preliminary Cerebral Spinal Fluid 03/30/23 17:10 Urine Culture - Final Urine,Voided Assessment and Plan Assessment: * Altered mental status, possible toxic metabolic encephalopathy. Patient had delirium, which seems to have improved. * Possible pneumonia * Positive blood cultures, which were felt to be contamination by ID * Normal pressure hydrocephalus * Osteoarthritis * History of back surgery Plan: * I spoke to patient's daughter on the phone. She mentioned that patient was diagnosed with normal pressure hydrocephalus 2 years ago when she was age 80. Patient follows up with Dr. Neal. He referred patient to a neurosurgeon (?Dr. Barbosa at [facility] [place]), who did not recommend ventriculoperitoneal shunting because of her age. It appears her NPH may have got worse. Patient is healthy otherwise. Patient's daughter mentioned that on Thursday night, she was using a walker and fell. She was able to get up and had dinner and then went to bed. On Thursday (day of admission), she was "loopy" and later appeared "out of it". Patient's daughter believed it was a UTI, although she states the same thing happened when she had hydrocephalus 2 years ago. Patient had never undergone lumbar puncture in the past. * Cerebrospinal fluid revealed RBC 1, WBC 1, glucose 77, proteins 55, all normal. Await viral panel. * EEG 03/31/2023 was abnormal due to background slowing of mild degree, suggestive of encephalopathy. No epileptiform activity was seen. * Patient probably has acute pneumonia. Patient currently on ceftriaxone. Vancomycin discontinued by ID. * Continue aspirin. * B12 1012, folate 14.40, TSH is 0.024 with free T4 normal 2.0. Will defer to IM to address abnormal thyroid functions.
[2023-04-03 11:06] LABS: Glucose,Whole Blood 82 mg/dL (70-110)
--- NOTE | 2023-04-03 12:04 | CT ---
EXAMINATION TYPE: CT brain wo con CT DLP: 1153 mGycm, Automated exposure control for dose reduction was used. DATE OF EXAM: 04/03/2023 11:51 AM COMPARISON: 03/30/2023. CLINICAL INDICATION:Female, 82 years old with history of head lac, Fall TECHNIQUE: Brain: Axial CT images of the brain were obtained with coronal and sagittal reformats created and rev iewed. Contrast used: None. Oral contrast used: None. FINDINGS: Brain: Extra-axial spaces: No abnormal extra-axial fluid collections. Ventricular system: Dilatation in proportion to cerebral atrophy. Cerebral parenchyma: Cerebral atrophy. No acute intraparenchymal hemorrhage or mass effect. The santos -white junction is well differentiated. Scattered hypoattenuating areas are seen within the white mat ter. Cerebellum: Unremarkable. Mass effect: No evidence of midline shift. Intracranial vasculature: Atherosclerotic calcifications of the intracranial vessels. Soft tissues: Right frontal scalp edema. Calvarium/osseous structures: No depressed skull fracture. Paranasal sinuses and mastoid air cells: Mild scattered paranasal sinus disease. Visualized orbits: Bilateral aphakia IMPRESSION: 1. No acute intracranial process. 2. Nonspecific white matter changes, likely secondary to chronic small vessel ischemic disease. 3. Right frontal scalp edema.
--- NOTE | 2023-04-03 12:06 | XR ---
EXAMINATION TYPE: XR Hip Bilateral Complete DATE OF EXAM: 04/03/2023 COMPARISON: NONE HISTORY: Pain TECHNIQUE: 2 views submitted FINDINGS: Right hip: Diffuse osteopenia with arthropathy of the hip joint and postsurgical changes. Marked defo rmity of the hip limits assessment. No obvious acute fracture. Left hip: Right hip: Diffuse osteopenia with arthropathy of the hip joint and postsurgical changes. Marked defo rmity of the hip limits assessment. No obvious acute fracture. Bilateral SI joint arthropathy. IMPRESSION: 1. No evidence of acute fracture or dislocation. Exam is limited due to osteopenia and chronic deform ities, therefore, if clinical suspicion is high or there is difficulty with weightbearing would recom mend CT scanning.
--- NOTE | 2023-04-03 12:35 | P.PCN ---
Date of Procedure: 04/01/23 Preoperative Diagnosis: Normal pressure hydrocephalus, altered mental status, rule out encephalitis meningitis Postoperative Diagnosis: Normal pressure hydrocephalus, rule out encephalitis meningitis Procedure(s) Performed: Lumbar puncture Anesthesia: local Surgeon: Nica Burton Estimated Blood Loss (ml): 0 Pathology: none sent Condition: stable Disposition: floor Indications for Procedure: Normal pressure hydrocephalus, therapeutic large-volume spinal tap. Rule out meningitis encephalitis Description of Procedure: Informed consent was obtained from patient's daughter. Very detailed risks and benefits of the procedure, and the indication of procedure was explained to the patient's daughter in detail. Patient was informed of the risk of infection, bleeding, numbness, back pain, and the features of post spinal headache and the treatment. The nurse spoke to the patient's daughter separately for the consent. Patient was placed in the sitting position on the side of the bed. The procedure was performed under strict aseptic conditions. L4 lumbar space was identified and marked. Low back region was sterilized with ChloraPrep and then with Betadine, and anesthetized with 1% lidocaine. A spinal needle 21-gauge, 3.5 inch inserted at L4 lumbar space. I was able to enter subarachnoid space after couple attempts. The spinal fluid was atraumatic, colorless and clear. The flow of spinal fluid was very good. About 24 mL of spinal fluid was collected in 4 tubes. Stylette was reintroduced, spinal needle withdrawn. Band-Aid applied. Patient was recommended to lay flat for half an hour. Patient tolerated the procedure very well.
--- NOTE | 2023-04-03 13:58 | P.PN ---
Subjective Progress Note Date: 04/03/23 Hospital Course: 82-year-old female with history of hypertension, hypothyroidism presented for altered mentation and fall. Per EMS report, family had claimed the patient had a fall 3 days ago, and was becoming more encephalopathic, not eating and drinking very well, also has dark urine. Patient wanted further evaluation in the hospital. Unclear what the baseline is. Patient is a very poor historian. She was febrile up to 101.2, tachycardic 111, blood pressure stable, respiratory status stable, saturating well on room air. CBC unremarkable, creatinine elevated to 1.28, lactate 3.1, down trended to 1.2, calcium 10.3 down trended to 9.3, respiratory viral panel negative, UA showed negative nitrates and negative leukocyte esterase. X-rays did not show any fractures, CT head and cervical spine did not show any fractures or acute processes. She does have stable CT findings which could correlate with clinical diagnosis of NPH due to fevers, and no localizing source of infection, patient may have encephalitis/meningitis. Was started on IV antibiotics. Neurology was also consulted. Blood cultures positive for GPC's in clusters, growing strep epi in 2/2 bottles. Repeat blood cultures pending. Subjective: Staph epi is felt to be contaminant after discussion with ID. Pt was stable for discharge today, but had a fall resulting in head lac. Vitals Signs Reviewed. General: Nontoxic, no distress, appears at stated age Derm: Warm, dry Head: Atraumatic, normocephalic, symmetric Eyes: EOMI, no lid lag, anicteric sclera Mouth: No lip lesion, mucus membranes moist Cardiovascular: S1S2 reg, no murmur Lungs: CTA bilateral, no rhonchi, no rales, no accessory muscle use Abdominal: Soft, nontender to palpation, no guarding, no appreciable organomegaly Ext: No gross muscle atrophy, no edema, no contractures Neuro: Moving all extremities, no nuchal rigidity Psych: Alert, oriented x 1, not following commands Data Reviewed Today: Pertinent Labs: WBC 9.33, hemoglobin 11, creatinine 0.98, glucose 118, magnesium 1.1 Imaging: No new imaging Assessment and Plan: Patient is severely ill, needs close monitoring. Prognosis guarded Active: Sepsis, unclear source Strep epi bacteremia Possible meningitis versus encephalitis Acute encephalopathy, unclear baseline, seems to be resolving Possible NPH -Neurology note reviewed, EEG did not show any epileptiform discharges Repeat cultures pending Unsure if blood cultures are contaminant, continue IV ceftriaxone 2 g every 24 hours, vanco discontinued ID consulted, appreciate recommendations Neurochecks Needs further clarification from family with regards to baseline mental status May need an LP and with opening pressure, will stop aspirin -Repeat CBC and BMP tomorrow Syncope Head laceration - CTH stat - b/l hip XR stat - telemetry - orthostatics Hypomagnesemia -4 g IV mag sulfate ordered -Repeat magnesium tomorrow Resolved: Lactic acidosis Acute kidney injury Hypercalcemia Chronic: Hypothyroidism Hypertension DVT ppx: SCDs Code status: Full code Anticipated discharge place: Pending clinical course Anticipated discharge time: Pending clinical course Objective - Vital Signs Vital signs: Vital Signs Temp 97.8 F 04/03/23 07:00 Pulse 75 04/03/23 07:00 Resp 15 04/03/23 07:00 BP 128/80 04/03/23 07:00 Pulse Ox 98 04/03/23 07:00 FiO2 Intake & Output 04/02/23 04/03/23 04/03/23 18:59 06:59 18:59 Intake Total 420 100 Output Total 1468 Balance -1048 100 Intake: Oral 420 100 Output: Urine 1000 Straight 500 Post Void Residual 468 Other: Voiding Method External Catheter External Catheter Bedpan # Voids 0 2 # Bowel Movements 0 - Labs CBC & Chem 7: 04/03/23 05:33 04/03/23 05:33 Labs: Abnormal Lab Results - Last 24 Hours (Table) 04/03/23 04/03/23 04/03/23 Range/Units 05:33 05:33 05:33 RBC 2.93 L (4.10-5.20) X 10*6/uL Hgb 9.3 L (12.0-15.0) g/dL Hct 28.8 L (37.2-46.3) % MCV 98.3 H (80.0-97.0) FL Chloride 113 H (98-107) mmol/L BUN 19 H (7-17) mg/dL Creatinine 1.07 H (0.52-1.04) mg/dL Magnesium 1.5 L (1.6-2.3) mg/dL C-Reactive Protein 16.1 H (<1.0) mg/dL Procalcitonin 0.11 H (0.02-0.09) ng/mL Microbiology - Last 24 Hours (Table) 04/01/23 20:28 CSF Gram Stain - Preliminary Cerebral Spinal Fluid CSF Culture - Preliminary 04/01/23 15:33 Blood Culture - Preliminary Blood 04/01/23 12:21 Blood Culture - Preliminary Blood 03/30/23 17:30 Blood Culture Gram Stain - Final Blood Blood Culture - Final Coagulase Negative Staph Coagulase Negative Staph#2 03/30/23 17:15 Blood Culture Gram Stain - Final Blood Blood Culture - Final Coagulase Negative Staph Coagulase Negative Staph#2
--- NOTE | 2023-04-03 15:07 | P.PN ---
Subjective Progress Note Date: 04/03/23 Principal diagnosis: Reason for follow-up is fever likely pneumonia and positive blood culture Patient is a 82-year-old female with a past medical history significant for osteoarthritis hypothyroidism patient was brought to the hospital for evaluation of mental status changes patient also noticed to be febrile there was concern for some bibasilar infiltrate patient also have LP completed on 04/01/2023 that was negative. On today's evaluation that is 04/03/2023,the patient remains to be afebrile, patient is on 2 L nasal cannula supplemental oxygen and denies any shortness of breath no chest pain or cough.Patient denies having any nausea or vomiting, no abdominal pain and no diarrhea has been reported, feeling better. Patient white count of 6.19, creatinine 1.07, Pro-Tanmay is 0.11 Objective - Vital Signs Vital signs: Vital Signs Temp 97.8 F 04/03/23 07:00 Pulse 75 04/03/23 07:00 Resp 15 04/03/23 07:00 BP 128/80 04/03/23 07:00 Pulse Ox 98 04/03/23 07:00 FiO2 Intake & Output 04/02/23 04/03/23 04/03/23 18:59 06:59 18:59 Intake Total 420 100 Output Total 1468 Balance -1048 100 Intake: Oral 420 100 Output: Urine 1000 Straight 500 Post Void Residual 468 Other: Voiding Method External Catheter External Catheter Bedpan # Voids 0 2 # Bowel Movements 0 - Exam GENERAL DESCRIPTION: An elderly female lying in bed in no distress RESPIRATORY SYSTEM: Unlabored breathing , decreased breath sounds at bases HEART: S1 S2 regular rate and rhythm , ABDOMEN: Soft , no tenderness EXTREMITIES: No edema feet - Labs CBC & Chem 7: 04/03/23 05:33 04/03/23 05:33 Labs: Abnormal Lab Results - Last 24 Hours (Table) 04/03/23 04/03/23 04/03/23 Range/Units 05:33 05:33 05:33 RBC 2.93 L (4.10-5.20) X 10*6/uL Hgb 9.3 L (12.0-15.0) g/dL Hct 28.8 L (37.2-46.3) % MCV 98.3 H (80.0-97.0) FL Chloride 113 H (98-107) mmol/L BUN 19 H (7-17) mg/dL Creatinine 1.07 H (0.52-1.04) mg/dL Magnesium 1.5 L (1.6-2.3) mg/dL C-Reactive Protein 16.1 H (<1.0) mg/dL Procalcitonin 0.11 H (0.02-0.09) ng/mL Microbiology - Last 24 Hours (Table) 04/01/23 20:28 CSF Gram Stain - Preliminary Cerebral Spinal Fluid CSF Culture - Preliminary 04/01/23 15:33 Blood Culture - Preliminary Blood 04/01/23 12:21 Blood Culture - Preliminary Blood 03/30/23 17:30 Blood Culture Gram Stain - Final Blood Blood Culture - Final Coagulase Negative Staph Coagulase Negative Staph#2 03/30/23 17:15 Blood Culture Gram Stain - Final Blood Blood Culture - Final Coagulase Negative Staph Coagulase Negative Staph#2 Assessment and Plan (1) Fever Current Visit: Yes Status: Acute Code(s): R50.9 - FEVER, UNSPECIFIED SNOMED Code(s): 796733105 (2) Pneumonia Current Visit: Yes Status: Acute Code(s): J18.9 - PNEUMONIA, UNSPECIFIED ORGANISM SNOMED Code(s): 823249321 (3) Positive blood culture Current Visit: Yes Status: Acute Code(s): R78.81 - BACTEREMIA SNOMED Code(s): 858320774 Plan: 1patient is in the hospital mental status changes patient also have a fever on presentation to the hospital patient initial workup has been negative chest x- ray has been suggestive of some basilar consolidation and a question of possible atelectasis abdominal soft on clinical examination, patient did have DRINK WAITER there was negative 2-patient also have a positive blood culture 2 out of 2 with staph epi likely skin contamination, blood culture repeat so far pending vancomycin has been discontinued 3-patient to continue with Rocephin with a plan to finish outpatient course of oral Ceftin discussed with the admitting team Dictation was produced using [employer] dictation software. please excuse any grammatical, word or spelling errors. Time with Patient: Less than 30
[2023-04-03] MEDS ORDERED: HALOPERIDOL LACTATE 5 MG/ML 1 ML VIAL IVP PRN (18:15)
[2023-04-03] MEDS: HALOPERIDOL LACTATE 5 MG/ML 1 ML VIAL IM PRN (18:28)
--- NOTE | 2023-04-03 20:10 | P.PN ---
Subjective Progress Note Date: 04/03/23 Patient was seen for a follow-up at around 11 AM. Multiple nurses were present around, as patient has apparently just fell off the recliner. She has some bleeding from the bridge of the nose, as she hit her face/nose on the base of the food tray. Patient had contusion to the forehead and laceration to the nose. Patient complaining of bilateral hip pain. Nurses are trying to help the patient. Objective - Vital Signs Vital signs: Vital Signs Temp 98.5 F 04/03/23 15:00 Pulse 74 04/03/23 15:00 Resp 18 04/03/23 15:00 BP 115/61 04/03/23 15:00 Pulse Ox 98 04/03/23 15:00 FiO2 Intake & Output 04/03/23 04/03/23 04/04/23 06:59 18:59 06:59 Intake Total 520 Balance 520 Intake: Oral 520 Other: Voiding Method External Catheter Bedpan # Voids 2 1 # Bowel Movements 0 - Exam Patient has just suffered from a fall. Nurses are trying to help her up. - Labs CBC & Chem 7: 04/03/23 05:33 04/03/23 05:33 Labs: Abnormal Lab Results - Last 24 Hours (Table) 04/03/23 04/03/23 04/03/23 Range/Units 05:33 05:33 05:33 RBC 2.93 L (4.10-5.20) X 10*6/uL Hgb 9.3 L (12.0-15.0) g/dL Hct 28.8 L (37.2-46.3) % MCV 98.3 H (80.0-97.0) FL Chloride 113 H (98-107) mmol/L BUN 19 H (7-17) mg/dL Creatinine 1.07 H (0.52-1.04) mg/dL Magnesium 1.5 L (1.6-2.3) mg/dL C-Reactive Protein 16.1 H (<1.0) mg/dL Procalcitonin 0.11 H (0.02-0.09) ng/mL Microbiology - Last 24 Hours (Table) 04/01/23 12:21 Blood Culture - Preliminary Blood 04/01/23 20:28 CSF Gram Stain - Preliminary Cerebral Spinal Fluid CSF Culture - Preliminary 04/01/23 15:33 Blood Culture - Preliminary Blood Assessment and Plan Assessment: * Status post in-house fall of the recliner, falling face forward. * Bilateral hip pain. * Altered mental status, possible toxic metabolic encephalopathy. Patient had delirium, which seems to have improved. * Normal pressure hydrocephalus status post therapeutic tap. * Possible pneumonia * Positive blood cultures, which were felt to be contamination by ID * Osteoarthritis * History of back surgery Plan: * Patient has just suffered from the fall while she was sitting in the recliner, apparently trying to get up. * CT head revealed no acute intracranial process. Nonspecific white matter changes, likely secondary to chronic small vessel ischemic disease. Right frontal scalp edema. I personally reviewed CT head, agree with the findings. No acute process. * X-ray of the hips revealed no evidence of acute fracture or dislocation. Exam is limited due to osteopenia and chronic deformities. Therefore if clinical suspicion is high or there is difficulty with weightbearing, would recommend CT scanning. We will defer to IM. * I spoke to patient's daughter yesterday on the phone. She mentioned that patient was diagnosed with normal pressure hydrocephalus 2 years ago when she was age 80. Patient follows up with Dr. Neal. He referred patient to a neurosurgeon (?Dr. Barbosa at [facility]), who did not recommend ventriculoperitoneal shunting because of her age. It appears her NPH may have got worse. Patient is healthy otherwise. Patient's daughter mentioned that on Thursday night, she was using a walker and fell. She was able to get up and had dinner and then went to bed. On Thursday (day of admission), she was "loopy" and later appeared "out of it". Patient's daughter believed it was a UTI, although she states the same thing happened when she had hydrocephalus 2 years ago. Patient had never undergone lumbar puncture in the past. * Cerebrospinal fluid revealed RBC 1, WBC 1, glucose 77, proteins 55, all normal. Await viral panel. * EEG 03/31/2023 was abnormal due to background slowing of mild degree, suggestive of encephalopathy. No epileptiform activity was seen. * Patient probably has acute pneumonia. Patient currently on ceftriaxone. Vancomycin discontinued by ID. * Continue aspirin. * B12 1012, folate 14.40, TSH is 0.024 with free T4 normal 2.0. Will defer to IM to address abnormal thyroid functions. * Dr. Eaton covering neurology service over the weekend.
--- NOTE | 2023-04-04 09:57 | CT ---
EXAMINATION TYPE: CT facial bones wo con CT DLP: 628.20 mGycm, Automated exposure control for dose reduction was used. DATE OF EXAM: 04/04/2023 8:29 AM COMPARISON: CT head from yesterday. CLINICAL INDICATION:Female, 82 years old with history of Fall, rule out nasal bone fracture; PHH, fal l, rule out nasal fracture TECHNIQUE: Multiple unenhanced axial CT images were obtained of the facial bones soft tissue and bone windows. Coronal, axial and sagittal reformatted images were also provided in soft tissue and bone windows and submitted for interpretation. Additional 3-D reformatted images were obtained on a [employer] workstation. FINDINGS: Bones appear somewhat osteopenic. There is evidence of bilateral nasal bone fractures, mildly comminu candice and mildly depressed on the right more than left. There is mild chronic nasal septal deviation to wards the right. No additional facial bone fractures are identified. TMJs appear normally articulated. Mild mucosal th ickening throughout the paranasal sinuses without significant fluid accumulation seen. Portions of le ft mastoid air cells are excluded from the [id number]; visualized mastoid air cells are clear. The re is debris in the left more than right external auditory canal, likely cerumen. Small right frontal scalp hematoma. Intraorbital contents appear intact. There has likely been prior lens surgery. An ac sunni orbital fracture is not identified. IMPRESSION: Bilateral nasal bone fractures, mildly comminuted and mildly depressed on the right more than left.
--- NOTE | 2023-04-04 15:57 | P.PN ---
Subjective Progress Note Date: 04/04/23 The patient is an 82-year-old female who was seen in neurologic follow-up on April 04, 2023, in cross coverage for Dr. Burton, in collaboration with Kia Mc, via teleneurology. The chart has been reviewed. The patient is seen by neurology because of encephalopathy. Apparently yesterday, the patient fell out of the recliner, onto her face. CT scan of the face was performed. There is reported bilateral nasal bone fractures. Patient continues to be confused today. Objective - Vital Signs Vital signs: Vital Signs Temp 98.2 F 04/04/23 07:25 Pulse 72 04/04/23 07:25 Resp 15 04/04/23 07:25 BP 103/51 04/04/23 07:25 Pulse Ox 94 L 04/04/23 09:39 FiO2 Intake & Output 04/03/23 04/04/23 04/04/23 18:59 06:59 18:59 Intake Total 520 118 Balance 520 118 Intake: Oral 520 118 Other: Voiding Method Bedpan Bedpan Bedpan # Voids 1 3 # Bowel Movements 0 - Exam General: Patient is seated in the recliner at the bedside. She is in no acute distress. HEENT: There is evidence of ecchymosis across the forehead, right lateral aspect of the nose with abrasion on the right side of the nose and bruising on the left cheek. Neurological examination Mental status: The patient is able to tell me her first and last name. She is not oriented to her age or date of . She is not oriented to her current location. Patient's speech is clear. Cranial nerves: 2-12 grossly intact Motor: Patient is able to move all 4 extremities. Formal strength testing was not carried out. - Labs CBC & Chem 7: 04/03/23 05:33 04/03/23 05:33 Labs: Microbiology - Last 24 Hours (Table) 04/01/23 20:28 CSF Gram Stain - Preliminary Cerebral Spinal Fluid CSF Culture - Preliminary 04/01/23 15:33 Blood Culture - Preliminary Blood 04/01/23 12:21 Blood Culture - Preliminary Blood Assessment and Plan Assessment: Status post in-house fall of the recliner, falling face forward-CT scan positive for bilateral nasal bone fractures * Bilateral hip pain. * Altered mental status, possible toxic metabolic encephalopathy. Patient had delirium, which seems to have improved. * Normal pressure hydrocephalus status post therapeutic tap-CSF is normal at this point, continue to await viral panel * Possible pneumonia * Positive blood cultures, which were felt to be contamination by ID * Osteoarthritis * History of back surgery Plan: 1. Awaiting viral panel regarding CSF 2. Physical therapy evaluation regarding balance and strengthening Time with Patient: Greater than 30 (35 minutes were spent caring for this patient today including, obtaining history, examining the patient, reviewing imaging, chart documentation, labs and creating this note)
--- NOTE | 2023-04-04 16:06 | P.PN ---
Subjective Progress Note Date: 04/04/23 Hospital Course: 82-year-old female with history of hypertension, hypothyroidism presented for altered mentation and fall. Per EMS report, family had claimed the patient had a fall 3 days ago, and was becoming more encephalopathic, not eating and drinking very well, also has dark urine. Patient wanted further evaluation in the hospital. Unclear what the baseline is. Patient is a very poor historian. She was febrile up to 101.2, tachycardic 111, blood pressure stable, respiratory status stable, saturating well on room air. CBC unremarkable, creatinine elevated to 1.28, lactate 3.1, down trended to 1.2, calcium 10.3 down trended to 9.3, respiratory viral panel negative, UA showed negative nitrates and negative leukocyte esterase. X-rays did not show any fractures, CT head and cervical spine did not show any fractures or acute processes. She does have stable CT findings which could correlate with clinical diagnosis of NPH due to fevers, and no localizing source of infection, patient may have encephalitis/meningitis. Was started on IV antibiotics. Neurology was also consulted. Blood cultures positive for GPC's in clusters, growing strep epi in 2/2 bottles. Repeat blood cultures pending. Subjective: Staph epi is felt to be contaminant after discussion with ID. Pt was stable for discharge today, but had a fall resulting in head lac. Vitals Signs Reviewed. General: Nontoxic, no distress, appears at stated age Derm: Warm, dry Head: Atraumatic, normocephalic, symmetric Eyes: EOMI, no lid lag, anicteric sclera Mouth: No lip lesion, mucus membranes moist Cardiovascular: S1S2 reg, no murmur Lungs: CTA bilateral, no rhonchi, no rales, no accessory muscle use Abdominal: Soft, nontender to palpation, no guarding, no appreciable organomegaly Ext: No gross muscle atrophy, no edema, no contractures Neuro: Moving all extremities, no nuchal rigidity Psych: Alert, oriented x 1, not following commands Data Reviewed Today: Pertinent Labs: WBC 9.33, hemoglobin 11, creatinine 0.98, glucose 118, magnesium 1.1 Imaging: No new imaging Assessment and Plan: Patient is severely ill, needs close monitoring. Prognosis guarded Active: Sepsis, unclear source Strep epi bacteremia Possible meningitis versus encephalitis Acute encephalopathy, unclear baseline, seems to be resolving Possible NPH -Neurology note reviewed, EEG did not show any epileptiform discharges Repeat cultures pending Unsure if blood cultures are contaminant, continue IV ceftriaxone 2 g every 24 hours, vanco discontinued ID consulted, appreciate recommendations Neurochecks Needs further clarification from family with regards to baseline mental status May need an LP and with opening pressure, will stop aspirin -Repeat CBC and BMP tomorrow Syncope Head laceration Nasal fractures - CTH was negative for bleed -CT face demonstrated nasal bone fractures - telemetry - orthostatics Hypomagnesemia -4 g IV mag sulfate ordered -Repeat magnesium tomorrow Resolved: Lactic acidosis Acute kidney injury Hypercalcemia Chronic: Hypothyroidism Hypertension DVT ppx: SCDs Code status: Full code Anticipated discharge place: Pending clinical course Anticipated discharge time: Pending clinical course Objective - Vital Signs Vital signs: Vital Signs Temp 97.2 F L 04/04/23 14:20 Pulse 72 04/04/23 07:25 Resp 16 04/04/23 14:20 BP 116/65 04/04/23 14:20 Pulse Ox 95 04/04/23 14:20 FiO2 Intake & Output 04/03/23 04/04/23 04/04/23 18:59 06:59 18:59 Intake Total 520 218 Balance 520 218 Intake: Oral 520 218 Other: Voiding Method Bedpan Bedpan Bedpan # Voids 1 3 1 # Bowel Movements 0 - Labs CBC & Chem 7: 04/03/23 05:33 04/03/23 05:33 Labs: Microbiology - Last 24 Hours (Table) 04/01/23 20:28 CSF Gram Stain - Preliminary Cerebral Spinal Fluid CSF Culture - Preliminary 04/01/23 15:33 Blood Culture - Preliminary Blood 04/01/23 12:21 Blood Culture - Preliminary Blood
--- NOTE | 2023-04-04 22:17 | P.PN ---
Subjective Progress Note Date: 04/04/23 Principal diagnosis: Reason for follow-up is fever likely pneumonia and positive blood culture Patient is a 82-year-old female with a past medical history significant for osteoarthritis hypothyroidism patient was brought to the hospital for evaluation of mental status changes patient also noticed to be febrile there was concern for some bibasilar infiltrate patient also have LP completed on 04/01/2023 that was negative. On today's evaluation that is 04/04/2023, the patient continues to be afebrile, the patient is on room air and breathing comfortably, the Pt denies having any chest pain or cough, the patient denies having any abdominal pain no vomiting or any diarrhea has been reported by the nursing staff complaining of some pain to the right flank area though. No new labs has been obtained today blood culture repeat so far negative Objective - Vital Signs Vital signs: Vital Signs Temp 98.2 F 04/04/23 07:25 Pulse 72 04/04/23 07:25 Resp 15 04/04/23 07:25 BP 103/51 04/04/23 07:25 Pulse Ox 94 L 04/04/23 09:39 FiO2 Intake & Output 04/03/23 04/04/23 04/04/23 18:59 06:59 18:59 Intake Total 520 118 Balance 520 118 Intake: Oral 520 118 Other: Voiding Method Bedpan Bedpan Bedpan # Voids 1 3 # Bowel Movements 0 - Exam GENERAL DESCRIPTION: An elderly female lying in bed in no distress RESPIRATORY SYSTEM: Unlabored breathing , decreased breath sounds at bases HEART: S1 S2 regular rate and rhythm , ABDOMEN: Soft , no tenderness EXTREMITIES: No edema feet - Labs CBC & Chem 7: 04/03/23 05:33 04/03/23 05:33 Labs: Microbiology - Last 24 Hours (Table) 04/01/23 20:28 CSF Gram Stain - Preliminary Cerebral Spinal Fluid CSF Culture - Preliminary 04/01/23 15:33 Blood Culture - Preliminary Blood 04/01/23 12:21 Blood Culture - Preliminary Blood Assessment and Plan (1) Fever Current Visit: Yes Status: Acute Code(s): R50.9 - FEVER, UNSPECIFIED SNOMED Code(s): 282904759 (2) Pneumonia Current Visit: Yes Status: Acute Code(s): J18.9 - PNEUMONIA, UNSPECIFIED ORGANISM SNOMED Code(s): 175190750 (3) Positive blood culture Current Visit: Yes Status: Acute Code(s): R78.81 - BACTEREMIA SNOMED Code(s): 357106497 Plan: 1patient is in the hospital mental status changes patient also have a fever on presentation to the hospital patient initial workup has been negative chest x- ray has been suggestive of some basilar consolidation and a question of possible atelectasis abdominal soft on clinical examination, 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 please excuse any grammatical, word or spelling errors. Time with Patient: Less than 30
[2023-04-05 09:19] LABS: Basophils # (A) 0.03 X 10*3/uL (0.00-0.10); Basophils % (A) 0.5 %; Eosinophils # (A) 0.22 X 10*3/uL (0.04-0.35); HCT 29.3 % (37.2-46.3); HGB 9.4 g/dL (12.0-15.0); Lymphocytes # (A) 1.29 X 10*3/uL (0.90-5.00); Lymphocytes % (A) 23.2 %; MCH 31.9 pg (27.0-32.0); MCHC 32.1 g/dL (32.0-37.0); MCV 99.3 FL (80.0-97.0); Mean Platelet Volume 11.2 FL (9.5-12.2); Monocytes % (A) 12.6 %; NRBC Per 100 WBC 0 X 10*3/uL (0.00-0.01); Neutrophils % (A) 59.5 %; Platelet Count 181 X 10*3/uL (140-440); RBC 2.95 X 10*6/uL (4.10-5.20); RDW 12.6 % (11.5-14.5); WBC 5.55 X 10*3/uL (4.50-10.00)
[2023-04-05 11:07] LABS: Blood Urea Nitrogen 15.4 mg/dL (9.0-27.0); Calcium 8.8 mg/dL (8.7-10.3); Carbon Dioxide 24.2 mmol/L (21.6-31.8); Chloride 109 mmol/L (96-109); Glucose 96 mg/dL (70-110); Magnesium 1.4 mg/dL (1.5-2.4); Potassium 3.8 mmol/L (3.5-5.5); Sodium 141 mmol/L (135-145)
--- NOTE | 2023-04-05 12:53 | P.PN ---
Subjective Progress Note Date: 04/05/23 Hospital Course: 82-year-old female with history of hypertension, hypothyroidism presented for altered mentation and fall. Per EMS report, family had claimed the patient had a fall 3 days ago, and was becoming more encephalopathic, not eating and drinking very well, also has dark urine. Patient wanted further evaluation in the hospital. Unclear what the baseline is. Patient is a very poor historian. She was febrile up to 101.2, tachycardic 111, blood pressure stable, respiratory status stable, saturating well on room air. CBC unremarkable, creatinine elevated to 1.28, lactate 3.1, down trended to 1.2, calcium 10.3 down trended to 9.3, respiratory viral panel negative, UA showed negative nitrates and negative leukocyte esterase. X-rays did not show any fractures, CT head and cervical spine did not show any fractures or acute processes. She does have stable CT findings which could correlate with clinical diagnosis of NPH due to fevers, and no localizing source of infection, patient may have encephalitis/meningitis. Was started on IV antibiotics. Neurology was also consulted. Blood cultures positive for GPC's in clusters, growing strep epi in 2/2 bottles. Repeat blood cultures pending. Subjective: Patient has no new complaints today. Pending discharge to rehab tomorrow. Vitals Signs Reviewed. General: Nontoxic, no distress, appears at stated age Derm: Warm, dry Head: Atraumatic, normocephalic, symmetric Eyes: EOMI, no lid lag, anicteric sclera Mouth: No lip lesion, mucus membranes moist Cardiovascular: S1S2 reg, no murmur Lungs: CTA bilateral, no rhonchi, no rales, no accessory muscle use Abdominal: Soft, nontender to palpation, no guarding, no appreciable org anomegaly Ext: No gross muscle atrophy, no edema, no contractures Neuro: Moving all extremities, no nuchal rigidity Psych: Alert, oriented x 1, not following commands Data Reviewed Today: Pertinent Labs: WBC 9.33, hemoglobin 11, creatinine 0.98, glucose 118, magnesium 1.1 Imaging: No new imaging Assessment and Plan: Patient is severely ill, needs close monitoring. Prognosis guarded Active: Sepsis, unclear source Strep epi bacteremia, contaminant Acute encephalopathy, unclear baseline, seems to be resolving Possible NPH -Neurology note reviewed, EEG did not show any epileptiform discharges Repeat cultures show no growth to date Unsure if blood cultures are contaminant, continue IV ceftriaxone 2 g every 24 hours, vanco discontinued ID consulted, appreciate recommendations Neurochecks Needs further clarification from family with regards to baseline mental status -Repeat CBC and BMP tomorrow Syncope Head laceration Nasal fractures - CTH was negative for bleed -CT face demonstrated nasal bone fractures - telemetry - orthostatics Hypomagnesemia -4 g IV mag sulfate ordered -Repeat magnesium tomorrow Resolved: Lactic acidosis Acute kidney injury Hypercalcemia Chronic: Hypothyroidism Hypertension DVT ppx: SCDs Code status: Full code Anticipated discharge place: Pending clinical course Anticipated discharge time: Pending clinical course Objective - Vital Signs Vital signs: Vital Signs Temp 97.2 F L 04/05/23 08:00 Pulse 71 04/05/23 08:00 Resp 17 04/05/23 08:00 BP 123/74 04/05/23 08:00 Pulse Ox 97 04/05/23 09:21 FiO2 Intake & Output 04/04/23 04/05/23 04/05/23 18:59 06:59 18:59 Intake Total 268 100 Output Total 475 Balance 268 -475 100 Intake: Oral 268 100 Output: Urine 475 Other: Voiding Method Bedpan # Voids 1 0 # Bowel Movements 0 - Labs CBC & Chem 7: 04/05/23 05:46 04/05/23 05:46 Labs: Abnormal Lab Results - Last 24 Hours (Table) 04/05/23 04/05/23 Range/Units 05:46 05:46 RBC 2.95 L (4.10-5.20) X 10*6/uL Hgb 9.4 L (12.0-15.0) g/dL Hct 29.3 L (37.2-46.3) % MCV 99.3 H (80.0-97.0) FL Est GFR (CKD-EPI) 50 L (>=60) Magnesium 1.4 L (1.5-2.4) mg/dL Microbiology - Last 24 Hours (Table) 04/01/23 20:28 CSF Gram Stain - Preliminary Cerebral Spinal Fluid CSF Culture - Preliminary 04/01/23 15:33 Blood Culture - Preliminary Blood 04/01/23 12:21 Blood Culture - Preliminary Blood
--- NOTE | 2023-04-05 14:07 | P.PN ---
Subjective Progress Note Date: 04/05/23 Principal diagnosis: Reason for follow-up is fever likely pneumonia and positive blood culture Patient is a 82-year-old female with a past medical history significant for osteoarthritis hypothyroidism patient was brought to the hospital for evaluation of mental status changes patient also noticed to be febrile there was concern for some bibasilar infiltrate patient also have LP completed on 04/01/2023 that was negative. On today's evaluation that is 04/05/2023, Patient is afebrile ,patient is currently on room air and denies having any shortness of breath, the patient denies any chest pain or cough, the patient denies any nausea vomiting did not have any abdominal pain and no diarrhea. Patient white count is 5.55, creatinine is 1.1 blood culture repeat so far negative Objective - Vital Signs Vital signs: Vital Signs Temp 97.2 F L 04/05/23 08:00 Pulse 71 04/05/23 08:00 Resp 17 04/05/23 08:00 BP 123/74 04/05/23 08:00 Pulse Ox 97 04/05/23 09:21 FiO2 Intake & Output 04/04/23 04/05/23 04/05/23 18:59 06:59 18:59 Intake Total 268 100 Output Total 475 Balance 268 -475 100 Intake: Oral 268 100 Output: Urine 475 Other: Voiding Method Bedpan # Voids 1 0 # Bowel Movements 0 - Exam GENERAL DESCRIPTION: An elderly female lying in bed in no distress RESPIRATORY SYSTEM: Unlabored breathing , decreased breath sounds at bases HEART: S1 S2 regular rate and rhythm , ABDOMEN: Soft , no tenderness EXTREMITIES: No edema feet - Labs CBC & Chem 7: 04/05/23 05:46 04/05/23 05:46 Labs: Abnormal Lab Results - Last 24 Hours (Table) 04/05/23 04/05/23 Range/Units 05:46 05:46 RBC 2.95 L (4.10-5.20) X 10*6/uL Hgb 9.4 L (12.0-15.0) g/dL Hct 29.3 L (37.2-46.3) % MCV 99.3 H (80.0-97.0) FL Est GFR (CKD-EPI) 50 L (>=60) Magnesium 1.4 L (1.5-2.4) mg/dL Microbiology - Last 24 Hours (Table) 04/01/23 20:28 CSF Gram Stain - Preliminary Cerebral Spinal Fluid CSF Culture - Preliminary 04/01/23 15:33 Blood Culture - Preliminary Blood 04/01/23 12:21 Blood Culture - Preliminary Blood Assessment and Plan (1) Fever Current Visit: Yes Status: Acute Code(s): R50.9 - FEVER, UNSPECIFIED SNOMED Code(s): 414528909 (2) Pneumonia Current Visit: Yes Status: Acute Code(s): J18.9 - PNEUMONIA, UNSPECIFIED ORGANISM SNOMED Code(s): 242912751 (3) Positive blood culture Current Visit: Yes Status: Acute Code(s): R78.81 - BACTEREMIA SNOMED Code(s): 409298099 Plan: 1patient is in the hospital mental status changes patient also have a fever on presentation to the hospital patient initial workup has been negative chest x- ray has been suggestive of some basilar consolidation and a question of possible atelectasis abdominal soft on clinical examination, 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 please excuse any grammatical, word or spelling errors. Time with Patient: Less than 30
[2023-04-05] MEDS: MAGNESIUM SULFATE-D5W PMX 1 GM in DEXTROSE/WATER 1 100ML.BAG IVPB SCH (17:27)
[2023-04-05 21:26] VITALS: RESP 16
[2023-04-06 10:38] VITALS: BP 124/57; PULSE 70; TEMP 98.4
--- NOTE | 2023-04-06 11:21 | P.DS ---
Providers Date of admission: 03/30/23 21:28 Expected date of discharge: 04/06/23 Attending physician: Rodney Gonzalez MD Consults: 03/31/23 04:33 Consult Physician Routine Consulting Provider: Nica Burton Consult Reason/Comments: AMS Do you want consulting provider notified?: Yes, Notify in am 03/31/23 16:43 Consult Physician Routine Consulting Provider: Isabel Martínez Consult Reason/Comments: sepsis, unclear source Do you want consulting provider notified?: Yes Primary care physician: Stated None Hospital Course: Sepsis, unclear source Strep epi bacteremia, contaminant Acute encephalopathy, unclear baseline, seems to be resolving NPH Syncope Head laceration Nasal fractures Hypomagnesemia Lactic acidosis Acute kidney injury Hypercalcemia Hypothyroidism Hypertension Hospital Course: 82-year-old female with history of hypertension, hypothyroidism presented for altered mentation and fall. Per EMS report, family had claimed the patient had a fall 3 days ago, and was becoming more encephalopathic, not eating and drinking very well, also has dark urine. Patient wanted further evaluation in the hospital. Unclear what the baseline is. Patient is a very poor historian. She was febrile up to 101.2, tachycardic 111, blood pressure stable, respiratory status stable, saturating well on room air. CBC unremarkable, creatinine elevated to 1.28, lactate 3.1, down trended to 1.2, calcium 10.3 down trended to 9.3, respiratory viral panel negative, UA showed negative nitrates and negative leukocyte esterase. X-rays did not show any fractures, CT head and cervical spine did not show any fractures or acute processes. She does have stable CT findings which could correlate with clinical diagnosis of NPH due to fevers, and no localizing source of infection, encephalitis/meningitis was considered, however, LP ruled this out while also providing therapeutic benefit for NPH. Neurology facilitated management. Blood cultures positive for GPC's in clusters , growing strep epi in 2/2 bottles. Repeat blood cultures NGTD and this was felt to be contaminant by ID. Pt was cleared for discharge, but had a syncopal episode on day of discharge which resulted in nasal fractures as seen on Face CT. Telemetry was negative for arrhythmia. Pt subsequently cleared for SOFIE. I spent 40 minutes coordinating this discharge on 04/06 Subjective: Patient has no new complaints today. Pending discharge to rehab tomorrow. Vitals Signs Reviewed. General: Nontoxic, no distress, appears at stated age Derm: Warm, dry Head: nasal fractures, head contusion, normocephalic, symmetric Eyes: EOMI, no lid lag, anicteric sclera Mouth: No lip lesion, mucus membranes moist Cardiovascular: S1S2 reg, no murmur Lungs: CTA bilateral, no rhonchi, no rales, no accessory muscle use Abdominal: Soft, nontender to palpation, no guarding, no appreciable organomegaly Ext: No gross muscle atrophy, no edema, no contractures Neuro: Moving all extremities, no nuchal rigidity Psych: Alert, oriented x 1, not following commands Patient Condition at Discharge: Good Plan - Discharge Summary New Discharge Prescriptions: New cefUROXime axetiL [Ceftin] 500 mg PO BID 10 Days #20 tab Ibuprofen [Motrin] 400 mg PO Q6HR PRN tab PRN Reason: Mild Pain Or Fever > 100.5 Acetaminophen Tab [Tylenol] 650 mg PO Q6HR PRN tab PRN Reason: Mild Pain Or Fever > 100.5 Continue Famotidine [Pepcid] 20 mg PO BID #20 tablet Metoprolol Succinate (ER) [Toprol XL] 50 mg PO BID QUEtiapine [SEROquel] 100 mg PO HS Levothyroxine Sodium [Synthroid] 150 mcg PO DAILY Discontinued Aspirin EC [Ecotrin Low Dose] 81 mg PO DAILY HYDROcodone/APAP 5-325MG [[place] 5-325] 1 tab PO BID PRN PRN Reason: Pain Discharge Medication List Levothyroxine Sodium [Synthroid] 150 mcg PO DAILY 07/24/21 [History] Famotidine [Pepcid] 20 mg PO BID #20 tablet 04/15/22 [Rx] Metoprolol Succinate (ER) [Toprol XL] 50 mg PO BID 03/30/23 [History] QUEtiapine [SEROquel] 100 mg PO HS 03/30/23 [History] Acetaminophen Tab [Tylenol] 650 mg PO Q6HR PRN tab 04/06/23 [Rx] Ibuprofen [Motrin] 400 mg PO Q6HR PRN tab 04/06/23 [Rx] cefUROXime axetiL [Ceftin] 500 mg PO BID 10 Days #20 tab 04/06/23 [Rx] Follow up Appointment(s)/Referral(s): None,Stated [Primary Care Provider] - 1-2 days Discharge Disposition: TRANSFER TO SNF/ECF
== END 2023-04-06 13:00 | DRG 871 ==
LOC: EC 16:18 → 6NMEDSUR 21:28 → OBSVTOIN 21:28 → 6NMEDSUR 21:45
PROVIDERS: ADMIT Internal Medicine; ATTEND Internal Medicine
PROC: 009U3ZX Drainage of Spinal Canal, Percutaneous Approach, Diagnostic (ICD-10-PCS; principal; 2023-04-01)
DX: A41.9 Sepsis, unspecified organism (principal); G93.41 Metabolic encephalopathy; J18.9 Pneumonia, unspecified organism; N17.9 Acute kidney failure, unspecified; E87.20 Acidosis, unspecified; G91.2 (Idiopathic) normal pressure hydrocephalus; J98.11 Atelectasis; I10 Essential (primary) hypertension; E03.9 Hypothyroidism, unspecified; G97.1 Other reaction to spinal and lumbar puncture; E83.42 Hypomagnesemia; E83.52 Hypercalcemia; S01.21XA Laceration without foreign body of nose, initial encounter; S02.2XXA Fracture of nasal bones, initial encounter for closed fracture; M25.551 Pain in right hip; M25.552 Pain in left hip; M47.812 Spondylosis without myelopathy or radiculopathy, cervical region; R29.6 Repeated falls; Z79.82 Long term (current) use of aspirin; Z79.890 Hormone replacement therapy; Z79.899 Other long term (current) drug therapy; Z91.81 History of falling; W07.XXXA Fall from chair, initial encounter; Y92.230 Patient room in hospital as the place of occurrence of the external cause
CPT/HCPCS: 36415; 70450; 70486; 71045; 72125; 72170; 73521; 80048; 80053; 80202; 81001; 82164; 82550; 82607; 82746; 82945; 83605; 83735; 83921; 84145; 84157; 84439; 84443; 85025; 85610; 85730; 86140; 87040; 87070; 87086; 87205; 87636; 89050; 93005; 94760; 95816; 96361; 96365; 96366; 96367; 96375; 99285